=== PATIENT | female | born 2000 | race Caucasian/White ===

== ENCOUNTER 2024-09-27 01:20 | Day surgery (SDC) | payer BC, SELFPAY ==
--- NOTE | 2024-09-26 12:34 | P.HP_ITS ---
H&P: HPI History of Present Illness Date/Time: 09/26/24 12:34 Chief Complaint: 1st trimester missed A/B Narrative: 24-year-old 1 para 0 in the 1st trimester with a missed A/B for suction dilatation and curettage ultrasound reveals no growth no heart tones. Risks and benefits of the procedure reviewed Review of Systems Review of Systems: All systems reviewed & are unremarkable except as noted in HPI and below Exam Const: General: cooperative, healthy appearing and comfortable Nutritional Appearance: average body habitus Orientation/consciousness: oriented to perso n, oriented to place and oriented to time HENMT: Head: normal to inspection Resp: Effort & Inspection: normal respiratory effort Cardio: Rate: regular rate Rhythm: regular rhythm Heart sounds: S1 normal heart sound present and S2 normal heart sound present GI: Inspection: normal to inspection : External Female Exam: normal external appearance Speculum Exam - Vagina: normal appearance of the vagina Speculum Exam - Cervix: normal appearance of the cervix Bimanual exam- vagina & uterus: enlarged Bimanual Exam- Adnexa, other: normal adnexae Assessment and Plan Assessment and plan (1) Missed : Code(s): O02.1 - Missed Status: Acute Plan Proceed with suction dilatation and curettage
[2024-09-26 12:40] VITALS: BMI 25.6
--- NOTE | 2024-09-26 12:59 | PC.NURSE ---
Report to the Outpatient Waiting Room, entrance under the green pavilion located off [facility], at time 0600 on date 09/27/24. Planned Procedure Time: 0730.? Time changes happen often and if your time is changed the preop area will call you the afternoon before. - You and your visitor will be asked to self-screen and do not enter if you have any COVID symptoms. Please call surgeon if you need to reschedule. - A mask is optional within the hospital at this time. Patients may have clear liquids (water, carbonated beverages, clear teas, apple juice) until 3 hours prior to surgery with a maximum of 20 ounces. - No food from midnight until time of surgery and no smoking, or chewing tobacco (or any form of nicotine). No chewing gum, candy or mints. Take only the following medications with a SIP of water on the morning of surgery: Zofran or Tylenol as needed DO NOT STOP ANY OF YOUR OTHER PRESCRIPTION MEDICATIONS PRIOR TO SURGERY EXCEPT THE FOLLOWING Hold all vitamins and supplements for 3 days per anesthesiologist. Medications to discontinue per physician N/A Please no make-up, nail panamanian, hairspray, perfume, deodorant, or body powder the day of surgery.? No jewelry (including any body piercings) or valuables the day of surgery, leave them at home.? Please take a shower or bath the night before, or the morning of, surgery with an antibacterial soap.? Wear comfortable, loose fitting clothing.? - Jewelry must be removed prior to entering the operating room.? Rings and piercings that are not removed may be cut off. - The hospital will not accept responsibility for valuables.? - Please leave all valuables, including medications, at home the day of surgery. If you are going home after surgery, a licensed sprinkler truck driver must drive you home.? - NO public transportation without another adult if you receive anesthesia. - We recommend that an adult stay with you for 24 hours following discharge. - We also recommend that you do not drive, make important decision, drink alcoholic beverages, or take any drugs that were not prescribed by your health care provider for at least 24 hours after your discharge time. Follow any additional instructions given to you from your surgeon. Telephone instructions given to patient and asked if any additional questions and then verbalized understanding. Patient advised to call surgeon office or pre surgery nurse liaison [phone] if any additional questions.
--- OUTSIDE RECORDS SUMMARY | 2024-09-27 01:28 | XMS_ITS | Encounter Summary ---
Author Organization [facility] Address [address] [place] [address] Care Team Providers Care Wheelabrator Operator Name Role Phone Jeannie Mccord ROUNDHOUSE FIRER/FIREMAN Primary Care Provider [phone] Encounter Details Date Type Department Care Team (Latest Contact Info) Description 02/01/2024 e-Zassihart Message Enc [facility] - [place] [address] [place], [place] [id number] Jeannie Mccord, ROUNDHOUSE FIRER/FIREMAN [address] [place], [place] [id number] X-Rays for Rheumatology Social History Tobacco Use Types Packs/Day Years Used Date Smoking Tobacco: Never Smokeless Tobacco: Never Alcohol Use Standard Drinks/Week Comments Not Currently 0 (1 standard drink = 0.6 oz pur e alcohol) PHQ-2 Answer Date Recorded Patient Health Questionnaire-2 Score 0 12/24/2023 Comments Unknown Sex and Gender Information Value Date Recorded Sex Assigned at Female 08/25/2024 3:04 PM INSTRUMENT SPECIALIST Legal Sex Female 10:38 AM CDT Gender Identity Female 08/25/2024 3:30 PM INSTRUMENT SPECIALIST Sexual Orientation Not on file documented as of this encounter Plan of Treatment Upcoming Encounters Date Type Department Care Team (Late st Contact Info) Description 11/02/2024 10:20 AM CDT Office Visit [facility] - [facility] [address] [facility], [address] [place] [address] Ney Garrett MD 3 [place] [address] documented as of this encounter Visit Diagnoses Not on filedocumented in this encounter Additional Health Concerns Assessment Noted Time PHQ-9 Depression Total Score: 9 12/24/19 3:15 PM CDT documented as of this encounter Care Teams Wheelabrator Operator Relationship Specialty Start Date End Date Jeannie Mccord, SINA [address] [facility] [address] [place] [address] PCP - General NURSE PRACTITIONER 12/24/23 documented as of this encounter
--- OUTSIDE RECORDS SUMMARY | 2024-09-27 01:28 | XMS_ITS ---
Author Organization [facility] Address [address] [place], [place] [address] Care Team Providers Care Chiropractic Neurologist Name Role Phone Ruby Brown Primary Care Provider Jose Matos [phone] REASON FOR VISIT appt Encounters Encounter Location Date Provider [facility] [address] [place], [place] [id number] 09/15/2023 Jose King Plan Of Treatment No Information Progress Notes * Celestina RAMACHANDRANDOB: [birth year] (23 yo F)Acc No.[id number]:09/15/2023 Patient: Celestina CASTELLANO :2000 A ge:23 Y S ex:Female Address:[address], [place], [address] * true * Date: Generated for Printi ng/Faloreng/eTransmitting on: 0 09/27/2024 02:28 AM EDT
--- OUTSIDE RECORDS SUMMARY | 2024-09-27 01:28 | XMS_ITS | Patient Health Record ---
Author Organization [facility] Address [address] [facility] [place] [place] [address] Care Team Providers Care Button Sewer Hand Name Role Phone Ruby Brown Primary Care Provider Jose Matos Unavailable [phone] Allergies Allergen (clinical drug ingredient) Drug/Non Drug Allergy documented on EMR Reaction Allergy Type Onset Date Status sumatriptan Sumatriptan Unknown Drug Allergy Act dinorah Reason For Referral No Information Medications Medication SIG (Take, Route, Fr equency, Duration) Notes Start Date End Date Status Colchicine 0.6 MG 1 tablet Orally ONCE A DAY for 30 days 08/19/2023 Active Naproxen 500 MG 1 tablet with food o r milk as needed Orally every 12 hrs Activ e Tylenol 325 MG 2 tablet as needed O rally every 4 hrs Active Problems Problem Type SNOMED Code ICD Code Onset Dates Problem Status W/U Status Risk Notes Problem Attention deficit hyperactivity disorder (633782586) Attention-deficit hyperactivity disorder, unspecified type (F90.9) Active confirmed Problem Pericarditis in diseases classified elsewhere (I32) Active confirmed Problem Cardiac arrhythmia (593501126) Other specified cardiac arrhythmias (I49.8) Active confirmed Problem Palpitations (59099334) Palpitations (R00.2) Active confirmed Problem Shortness of breath (025149057) Shortness of breath (R06.02) Active confirmed Problem Precordial pain (97936688) Precordial pain (R07.2) Active confirmed Problem Syncope and collapse (573064839) Syncope and collapse (R55) Active confirmed Problem Postural orthostatic tachycardia syndrome (disorder) (034361682) Postural orthostatic tachycardia syndrome [POTS] (G90.A) Active confirmed Plan Of Treatment Pending Test Test Name Order Date Echocardiogram 08/15/2021 EKG 08/15/2021 EKG 11/10/2022 EKG 05/04/2023 EKG 07/28/2023 EKG 08/19/2023 ETT Stress 12/16/[address] angiogram 07/28/[address] angiogram 08/19/2023 ZioPatch 08/15/2021 Zio 3-7 days - extended continuous ambul atory professor of literature 07/28/2023 Medical (General) History Medical History History ICD Code History of POTS Diagnosed by Tilt Table Test in [place]. CARDIAC HISTORY AND TESTIN-D Echo 09/2021 LVEF 60-65%, G1DD. Zio 7 day 09/2021 HR 47-157, avg 76 bpm. Sinus rhythm with rare PVC/PAC. POTS diagnosis via tilt table test in [place]. Surgical History Surgery Date(Month/Year) Hospitalization History Reason Date(Month/Year) chest pain (TIO) 07/2023 chest pain, dizziness, sob 05/2021
--- OUTSIDE RECORDS SUMMARY | 2024-09-27 01:28 | XMS_ITS | Encounter Summary ---
Author Organization [facility] Address [address] [place] [address] Care Team Providers Care Exchange Underwriting Consultant Name Role Phone Jeannie Mccord MACHINE LOADER Primary Care Provider [phone] Encounter Details Date Type Department Care Team (Late st Contact Info) Description 07/07/2024 [employer]hart Message Enc [facility] Multispecialty Care - [place] [address] [place], [place] [address] Jeannie Mccord, MACHINE LOADER [address] [place] [address] Sore throat Social History Tobacco Use Types Packs/Day Years Used Date Smoking Tobacco: Never Smokeless Tobacco: Never Alcohol Use Standard Drinks/Week Comments Not Currently 0 (1 standard drink = 0.6 oz pur e alcohol) PHQ-2 Answer Date Recorded Patient Health Questionnaire-2 Score 0 12/24/2023 Comments No Sex and Gender Information Value Date Recorded Sex Assigned at Female 08/25/2024 3:04 PM CARD ASSEMBLER Legal Sex Female 10:38 AM CDT Gender Identity Female 08/25/2024 3:30 PM CARD ASSEMBLER Sexual Orientation Not on file documented as of this encounter Plan of Treatment Upcoming Encounters Date Type Department Care Team (Late st Contact Info) Description 11/02/2024 10:20 AM CDT Office Visit [facility] - [facility] [address] [facility], [address] [place] [address] Ney Garrett MD 3 [place] [address] documented as of this encounter Visit Diagnoses Not on filedocumented in this encounter Additional Health Concerns Assessment Noted Time PHQ-9 Depression Total Score: 9 12/24/19 3:15 PM CDT documented as of this encounter Care Teams Exchange Underwriting Consultant Relationship Specialty Start Date End Date Jeannie Mccord, MACHINE LOADER [address] [facility] [address] [place] [address] PCP - General NURSE PRACTITIONER 12/24/23 documented as of this encounter
--- OUTSIDE RECORDS SUMMARY | 2024-09-27 01:28 | XMS_ITS | Encounter Summary ---
Author Organization [facility] Address [address] [place] [address] Care Team Providers Care Slubber Hand Name Role Phone Jeannie Mccord WATCH REPAIR TECHNICIAN Primary Care Provider [phone] Encounter Details Date Type Department Care Team (Late st Contact Info) Description 06/29/2024 [employer] Message Enc [facility] Multispecialty Care - [place] [address] [place], [place] [id number] Jeannie Mccord, WATCH REPAIR TECHNICIAN [address] [place] [address] Sore throat Social History Tobacco Use Types Packs/Day Years Used Date Smoking Tobacco: Never Smokeless Tobacco: Never Alcohol Use Standard Drinks/Week Comments Not Currently 0 (1 standard drink = 0.6 oz pur e alcohol) PHQ-2 Answer Date Recorded Patient Health Questionnaire-2 Score 0 12/24/2023 Comments No Sex and Gender Information Value Date Recorded Sex Assigned at Female 08/25/2024 3:04 PM KETTLE LOADER Legal Sex Female 10:38 AM CDT Gender Identity Female 08/25/2024 3:30 PM KETTLE LOADER Sexual Orientation Not on file documented as of this encounter Plan of Treatment Upcoming Encounters Date Type Department Care Team (Late st Contact Info) Description 11/02/2024 10:20 AM CDT Office Visit [facility] - [facility] [address] [facility], [address] [place] [address] Ney Garrett MD 3 [place] [address] documented as of this encounter Visit Diagnoses Not on filedocumented in this encounter Additional Health Concerns Assessment Noted Time PHQ-9 Depression Total Score: 9 12/24/19 3:15 PM CDT documented as of this encounter Care Teams Slubber Hand Relationship Specialty Start Date End Date Jeannie Mccord, WATCH REPAIR TECHNICIAN [address] [facility] [address] [place] [address] PCP - General NURSE PRACTITIONER 12/24/23 documented as of this encounter
--- OUTSIDE RECORDS SUMMARY | 2024-09-27 01:28 | XMS_ITS | Encounter Summary ---
Author Organization [facility] Address [address] [place] [address] Care Team Providers Care Imaging Scheduler Name Role Phone Jeannie Mccord MATERIAL LISTER Primary Care Provider [phone] Encounter Details Date Type Department Care Team (Late Contact Info) Description 06/23/2024 [employer] Message Enc [facility] Multispecialty Care - [place] [address] [place], [place] [address] Jeannie Mccord NP [address] [place] [address] Herpes Medication Social History Tobacco Use Types Packs/Day Years Used Date Smoking Tobacco: Never Smokeless Tobacco: Never Alcohol Use Standard Drinks/Week Comments Not Currently 0 (1 standard drink = 0.6 oz pur e alcohol) PHQ-2 Answer Date Recorded Patient Health Questionnaire-2 Score 0 12/24/2023 Comments No Sex and Gender Information Value Date Recorded Sex Assigned at Female 08/25/2024 3:04 PM PSYCHIATRIC NURSE Legal Sex Female 10:38 AM CDT Gender Identity Female 08/25/2024 3:30 PM PSYCHIATRIC NURSE Sexual Orientation Not on file documented as of this encounter Plan of Treatment Upcoming Encounters Date Type Department Care Team (Late Contact Info) Description 11/02/2024 10:20 AM CDT Office Visit [facility]ty Care - [facility] [address] [facility], [address] [place] [address] Ney Garrett MD 3 [place] [address] documented as of this encounter Visit Diagnoses Not on filedocumented in this encounter Additional Health Concerns Assessment Noted Time PHQ-9 Depression Total Score: 9 12/24/19 24 3:15 PM CDT documented as of this encounter Care Teams Imaging Scheduler Relationship Specialty Start Date End Date Jeannie Mccord, MATERIAL LISTER [address] [facility] [address] [place] [address] PCP - General NURSE PRACTITIONER 12/24/23 documented as of this encounter
--- OUTSIDE RECORDS SUMMARY | 2024-09-27 01:28 | XMS_ITS | Encounter Summary ---
Author Organization [facility] Address [address] [place] [address] Care Team Providers Care Asbestos Wire Finisher Name Role Phone Jeannie Mccord ROUGHER MACHINE OPERATOR Primary Care Provider [phone] Encounter Details Date Type Department Care Team (Late Contact Info) Description 12/24/2023 MyChart Message Enc [facility] Multispecialty Care - [place] [address] [place], [place] [address] Jeannie Mccord, ROUGHER MACHINE OPERATOR [address] [place] [address] symptoms Social History Tobacco Use Types Packs/Day Years Used Date Smoking Tobacco: Never Smokeless Tobacco: Never Alcohol Use Standard Drinks/Week Comments Not Currently 0 (1 standard drink = 0.6 oz pur e alcohol) PHQ-2 Answer Date Recorded Patient Health Questionnaire-2 Score 0 12/24/2023 Comments Unknown Sex and Gender Information Value Date Recorded Sex Assigned at Female 08/25/2024 3:04 PM FOREST FIRE EQUIPMENT OPERATOR Legal Sex Female 10:38 AM CDT Gender Identity Female 08/25/2024 3:30 PM FOREST FIRE EQUIPMENT OPERATOR Sexual Orientation Not on file documented as of this encounter Plan of Treatment Upcoming Encounters Date Type Department Care Team (Late Contact Info) Description 11/02/2024 10:20 AM CDT Office Visit [facility] Mult[facility]pecialty Care - [facility] [address] [facility], [address] [place] [address] Ney Garrett MD 3 [place] [address] documented as of this encounter Visit Diagnoses Not on filedocumented in this encounter Additional Health Concerns Assessment Noted Time PHQ-9 Depression Total Score: 9 12/24/19 24 3:15 PM CDT documented as of this encounter Care Teams Asbestos Wire Finisher Relationship Specialty Start Date End Date Jeannie Mccord, ROUGHER MACHINE OPERATOR [address] [facility] [address] [place] [address] PCP - General NURSE PRACTITIONER 12/24/23 documented as of this encounter
--- OUTSIDE RECORDS SUMMARY | 2024-09-27 01:28 | XMS_ITS | Encounter Summary ---
Author Organization [facility] Address [address] [place] [address] Care Team Providers Care Pecan Sheller Name Role Phone Jeannie Mccord NP Primary Care Provider [phone] Encounter Details Date Type Department Care Team (Late st Contact Info) Description 03/06/2024 Yodio[employer] Message Enc [facility] Mult[facility]pecialty Care - [place] [address] [place], [place] [phone] Jeannie Mccord, ELECTRICAL PROJECT MANAGER [address] [place] [address] New Medication Social History Tobacco Use Types Packs/Day Years Used Date Smoking Tobacco: Never Smokeless Tobacco: Never Alcohol Use Standard Drinks/Week Comments Not Currently 0 (1 standard drink = 0.6 oz pur e alcohol) PHQ-2 Answer Date Recorded Patient Health Questionnaire-2 Score 0 12/24/2023 Comments No Sex and Gender Information Value Date Recorded Sex Assigned at Female 08/25/2024 3:04 PM RESIDENTIAL LAWN SPECIALIST Legal Sex Female 10:38 AM CDT Gender Identity Female 08/25/2024 3:30 PM RESIDENTIAL LAWN SPECIALIST Sexual Orientation Not on file documented as of this encounter Progress Notes * Ivy Lowry MA - 03/06/2024 2:06 PM CDTFrom: Celestina Alvarez To: Jeannie Mccord Sent: 03/06/2024 1:24 PM CDT Subject: New Medication Good afternoon, I didn???t tolerate the ropinirole very well. it raised my heart rate to about 120-130 just restingand made me feel like I couldn???t breathe too well. I don???t think I want to try to take it again. Is there an alternative I can try? Thanks, documented in this encounter Plan of Treatment Upcoming Encounters Date Type Department Care Team (Late st Contact Info) Description 11/02/2024 10:20 AM CDT Office Visit [facility] - [facility] [address] [facility], [address] [place] [address] Ney Garrett MD 3 [place] [address] documented as of this encounter Visit Diagnoses Not on filedocumented in this encounter Additional Health Concerns Assessment Noted Time PHQ-9 Depression Total Score: 9 12/24/19 24 3:15 PM CDT documented as of this encounter Care Teams Pecan Sheller Relationship Specialty Start Date End Date Jeannie Mccord, SINA [address] [place] [address] PCP - General NURSE PRACTITIONER 12/24/23 documented as of this encounter
--- OUTSIDE RECORDS SUMMARY | 2024-09-27 01:28 | XMS_ITS ---
Author Name Interface, [id number] lity Address [place] [address] Organization [facility] Address [place] [address] Care Team Providers Care Management Assistant Name Role Phone Renetta French Unavailable Unavailable Allergies and Adverse Reactions Medication/Group Name Reaction Severity Date Caplyta 11/10/2023 sumatriptan 11/10/2023 Plan Date Type Value 11/12/2023 APPOINTMENT 1865-pos op f/u 11/10/2023 APPOINTMENT 1865-pos op f/u 11/10/2023 [facility] Chest x-ray, PA and lateral Reason for Visit [facility]5-pos op f/u Encounters Date Name 11/10/2023 Pulmonary sequestrat ion Medications Date Name Route Dose Frequency Instructions Start Date End Date Status Bupropion (XL) Oral 24 hr Tab PO 1.0 tablet extended release 24 hr Daily active Cholecalciferol Oral PO active Loratadine Oral Disintegrating Tablet PO As needed active Gabapentin Oral PO 1.0 capsule QID 4 times a day as needed active Ondansetron Oral PO 1.0 tablet As needed for nausea active 2023 ondansetron 4 MG Oral Tablet orally 1.0 tablet every 4 hours 024 active 2023 acetaminophen 325 MG / hydrocodone bitartrate 10 MG Oral Tablet orally 1.0 tab every 8 hours 024 active Problems Diagnosis Status Date of Diagnosi s Pulmonary sequestration Active Vital Signs Date Type Value 11/10/2023 Body Temperature 97.30 11/10/2023 Heart Beat 82.00 11/10/2023 Respiratory Rate 18.00 11/10/2023 Weight 134.00 11/10/2023 Intravascular Systolic 107 11/10/2023 Intravascular Diastolic 70 11/10/2023 Pain Scale 5.00 11/10/2023 Oxygen Saturation 100.00 Notes Section * [facility] - Thoracic Surgery Follow Up [facility] Al[facility] Gayton [address] [place] [address]. [place] [address] P: [phone] F: [phone] THORACIC SURGERY FOLLOW UP NOTE PATIENT:??BRANDY RAMACHANDRAN :??2000 Date of Service:??11/10/[address] 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 ??CTA of the chest was done and she was diagnosed with pericarditis. ??She was treated with colchicine, NSAIDs, and steroids without improvement in her symptoms. 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 ??She was referred to Dr. Parker. ??PFTs showed FEV1 93% and DLCO 98%. ??She was referred to me for surgical evaluation for resection of the sequestrated lung segment. ??Of note, the patient denied any prior pneumonias. ??She did have COVID in 2020 and was diagnosed with long COVID POTS, but her symptoms have been improving. ??She previously had asthma as a child, but does not use any inhalers currently. ??She reported an occasional cough in the morning with scant bloody mucus but no hemoptysis. ?? I reviewed her CT scan with radiology at [facility]. ??There is an abnormal area in the left lower lobe with unusual architecture which abuts the pericardium; however, unlike typical pulmonary sequestration, there does not appear to be any aberrant pulmonary arterial supply from the aorta to this region of the lung. ??Given that this segment of lung is the only apparent abnormality on her CT scans of her chest, I discussed with the patient that it would be reasonable to perform a wedge resection of this area. ??I was very clear however that this may not be the cause of her symptoms and surgery may not improve the shortness of breath and chest pain she has been having. ??Given the possibility for complicated resection if any anomalous arterial supply were encountered or the possibility of requiring left lower lobectomy, I recommended proceeding with a robotic procedure. ??The patient understood, agreed, and wished to proceed with surgery.?? On 10/26/2023, she underwent flexible bronchoscopy and robotic left lower lobe wedge resection of the anomalous portion of the left lower lobe. She was extubated post operatively and was transferred to the floor after a brief recovery in PACU. Her chest tube was removed on POD 1. Adjustments were made to her pain regimen during her stay until??her pain was controlled with PO pain medications alone. She was discharged home on POD 2. Surgical pathology was consistent with emphysematous and atelectatic changes around the bronchi with chronic inflammation. Imaging CTA Chest 08/02/2023 IMPRESSION: 1. No evidence of central pulmonary embolic disease. No aneurysm or dissection of the thoracic aorta 2. No focal infiltrate or pleural effusion. No evidence of pneumothorax CTA Coronaries 09/14/2023 FINDINGS: Incidental note of a 5 cm x 1.6 cm medial left lower lobe pulmonary sequestration. IMPRESSION: Normal CT coronary artery angiogram. No finding of coronary artery disease. Follow up chest x-ray 11/10/2023 Formal read pending. Lungs appear clear and well-expanded, no effusion, no pneumothorax. Pathology Left lower lobe wedge resection 10/26/2023 FINAL DIAGNOSIS ? Lung, left lower lobe, wedge resection: Lung parenchyma with some emphysematous changes in ?the periphery and atelectatic changes around the bronchi with mild chronic inflammation. ? Dictated by: Martin Turcios Interval History Ms. Ramachandran returns today for post operative follow up. Overall, she is recovering well. She is weaning her pain medication and is only taking the Mccomb ~2 times daily. She is still taking the gabapentin and robaxin TID. She reports some occasional SOB/DARLING with activity, but not as severe as before surgery. Her pain also seems to be improved. Her just took a job in [place] and they plan to move in 2 weeks.?? Medical History Asthma as a child COVID in 2020 Long COVID with POTS Surgical History ? Surgical History* Left leg muscle lengthening procedure Robotic left lower lobe wedge resection 10/26/2023 Gynecologic History Breast History Family History * Father: Alive and Well * Mother: Alive and Well Paternal GF with lung cancer - smoker Smoking Status Smoking Tobacco : Never smoker; Smokeless Tobacco : Never used smokeless tobacco; Vaping : Current vape user Social History Vapes daily since 17yo, working to quit. Rare EtOH use Lives with her and her parents - recently moved to [place] from [place] and [place] before that She is a student at [employer] working to obtain her Bachelor's degree in Psychology with plans to apply for PhD program??in Psychology afterward.?? Medications * Loratadine Oral Disintegrating Tablet 10 mg tablet,disintegrating PO As needed * Wellbutrin XL (Bupropion (XL) Oral 24 hr Tab) 150 mg tablet extended release 24 hr 1 tablet extended release 24 hr PO Daily * Gabapentin Oral 300 mg capsule 1 capsule PO QID 4 times a day as needed * Vitamin D3 (Cholecalciferol Oral) PO * Hydrocodone-Acetaminophen Oral 10 mg-325 mg 10-325 mg tablet 1 tab orally every 8 hours as needed for pain. * Ondansetron Oral 4 mg tablet 1 tablet PO As needed for nausea Medications reviewed and reconciled with patient.?? Allergies * Caplyta * sumatriptan Review of Systems Constitutional: Denies fatigue, weakness, chills, fever Skin: Denies bruising, rash Eyes: Denies vision changes ENT: Denies voice change, hearing loss, mouth pain, sore throat, epistaxis Respiratory: Denies cough, SOB, hemoptysis CV: Denies chest pain, palpitations GI: Denies abdominal pain, nausea, vomiting, diarrhea Musculoskeletal: Denies joint pain, swelling, myalgias Heme: Denies bleeding, bruising Endocrine: Denies heat/cold intolerance Neuro: Denies LOC, confusion, seizure Psych: Denies change in mental status, suicidal/homicidal ideation Problems * Pulmonary sequestration ( ICD-10:Q33.2 ;Sequestration of lung ) Vital Signs/Performance Status Height: None Today; Weight: 134 lb; Blood pressure: 107/70, Pulse: 82, Temperature: 97.3 F, Respirations: 18, Pain Scale: 5 Karnofsky: Not Assessed Physical Exam General Appearance: alert, awake, oriented, no acute distress HEENT: Pupils equal, extraocular movements intact, moist mucosal membranes, sclera clear Neck: Normal range of motion, supple, no JVD, no LAD CV: Regular rate, hemodynamically stable Respiratory: normal work of breathing, no wheezes Chest: incisions healing well, no signs of infection, dehiscence, or seroma. Chest tube site sutureremoved. 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 Surgical pathology??consistent with emphysematous and atelectatic changes around the bronchi with chronic inflammation. Plan 1. She is cleared for driving, swimming, baths. She should avoid lifting more than 10 pounds for another 4 weeks (total of 6 weeks after surgery).?? OK to use ointments/lotions/scar creams as needed. 2. She may follow up with me as needed. 3. She should follow up with Dr. Parker as scheduled. 4. I will send a refill for her pain medication today. Procedure Flexible bronchoscopy and robotic??wedge resection of the anomalous portion of the left lower lobe 10/26/2023 , Renetta French MD [facility] Send copy of note to: Dr. Jeff Parker . Electronically signed by Renetta French MD 11/10/2023 11:48 CDT
--- OUTSIDE RECORDS SUMMARY | 2024-09-27 01:28 | XMS_ITS | CCD ---
Author Name Interface, [id number] lity Address [place] [address] Organization [facility] Address [place] [address] Care Team Providers Care Cardroom Drawing Runner Name Role Phone Renetta French Unavailable Unavailable Allergies and Adverse Reactions Medication/Group Name Reaction Severity Date Caplyta 11/10/2023 sumatriptan 11/10/2023 Care Plan Date Type Value 11/12/2023 APPOINTMENT 1865-pos op f/u 11/10/2023 APPOINTMENT 1865-pos op f/u 10/13/2023 APPOINTMENT 1865 CONSULT 11/10/2023 [facility] Chest x-ray, PA and lateral Reason for Visit 1865-pos op f/u Encounters Date Name 11/10/2023 Pulmonary sequestrat ion Diagnostic Results Date Type Test Units Lower Limit Upper Limit Result Flag Comments Status Ordered By Specimen Source Lab Address 10/04 Pulmo nary funct ion test See attache proctor Medications Date Name Route Dose Frequency Instructions Start Date End Date Status Gabapentin Oral PO 1.0 capsule QID 4 times a day as needed active Bupropion (XL) Oral 24 hr Tab PO 1.0 tablet extended release 24 hr Daily active Ondansetron Oral PO 1.0 tablet As needed for nausea active Cholecalciferol Oral PO active Loratadine Oral Disintegrating Tablet PO As needed active 2023 ondansetron 4 MG Oral Tablet orally 1.0 tablet every 4 hours active 2023 acetaminophen 325 MG / hydrocodone bitartrate 10 MG Oral Tablet orally 1.0 tab every 8 hours active Problems Diagnosis Status Date of Diagnosi s Pulmonary sequestration Active Procedures Date Category Name Instructions Status 11/10/2023 Physician Order Diagnostic radio graphy of chest, combined PA and lateral post op surgical chest xray to be completed same day as post op at [facility] on 11/10/23 prior to scheduled appt with Dr. French. Ordered Social History Date Name Value 10/13/2023 Smoking Status Never smoker Sex Female Vital Signs Date Type Value 11/10/2023 Weight 134.00 11/10/2023 Intravascular Systolic 107 11/10/2023 Intravascular Diastolic 70 11/10/2023 Respiratory Rate 18.00 11/10/2023 Heart Beat 82.00 11/10/2023 Body Temperature 97.30 11/10/2023 Pain Scale 5.00 11/10/2023 Oxygen Saturation 100.00
--- OUTSIDE RECORDS SUMMARY | 2024-09-27 01:28 | XMS_ITS ---
Author Organization [facility] Address [address] [place], [place] [id number] Care Team Providers Care Strip Feeder Name Role Phone Ruby Brown Primary Care Provider Jose Matos Unavailable [phone] Allergies Allergen (clinical drug ingredient) Drug/Non Drug Allergy documented on EMR Reaction Allergy Type Onset Date Status sumatriptan Sumatriptan Unknown Drug Allergy Act dinorah REASON FOR VISIT ZIO F/U PER DR KING Medications Medication SIG (Take, Route, Frequency, Duration) Notes Start Date End Date Status methylPREDNISolone 4 MG as directed Oral ly use as directed for 6 days 08/19/2023 Not-Takin g Colchicine 0.6 MG 1 tablet Orally ONCE A DAY for 30 days 08/19/2023 Active Tylenol 325 MG 2 tablet as needed Orally every 4 hrs Active Naproxen 500 MG 1 tablet with food o r milk as needed Orally every 12 hrs Active Vital Signs Height 62 in 09/16/2023 Weight 133 lbs 09/16/2023 BMI 24.32 kg/m2 09/16/2023 Heart Rate 97 /min 09/16/2023 Blood pressure systolic 118 mm Hg 09/16/19 24 Blood pressure diastolic 70 mm Hg 024 o2-98 Encounters Encounter Location Date Provider Diagnosis [facility] [address] [place], [place] [id number] 09/16/2023 Jose King Postural orthostatic tachycardia syndrome [POTS] G90.A ; Palpitations R00.2 and Pericarditis in diseases classified elsewhere I32 Assessments Encounter Date Diagnosis (ICD Code) Assessment Notes Treatment Notes Treatment Clinical Notes Section Notes 09/16/2023 Postural orthostatic tachycardia syndrome [POTS] (ICD-10 - G90.A) 09/16/2023 Palpitations (ICD-10 - R00.2) 09/16/2023 Pericarditis in diseases classified elsewhere (ICD-10 - I32) Plan Of Treatment Medication Medication Name Sig Start Date Stop Date Notes Colchicine 0.6 MG 1 tablet Orally ONCE A DAY for 30 days 0 08/19/2023 Next Appt Details Follow Up: 4 Months, Reason: Progress Notes * Celestina RAMACHANDRANDOB: [birth year] (23 yo F)Acc No.[id number]:09/16/2023 Progress Notes Patient: Celestina CASTELLANO Provider: Agnieszka King MD, [facility] :2000 A ge:23 Y S ex:Female Date:09/16/2023 Address:[facility] [address] [id number] Pcp:Ruby Brown Subjective: * Chief Complaints: * Z IO F/U PER DR KING * HPI: I nterim History, Cardiology: Ms Ramachandran returns for routine CV follow up. She went to [facility] ED on July 30, 2023 due to unremitting chest pain inspite of NSAID. workup included a chest CT scan. She was told to have pericarditis. He was told there may be some concomitant lung inflammation as well. She was placed on naproxen 500 mg by mouth twice a day for 30 days. This attenuated the chste discomfort although she continues to have Chest pain both at rest and with exertion. chest discomfort is worse when she lays on her back appears to be somewhat improved when she leans forward. She told me she must have been bedridden for the past 2 weeks due to significant chest discomfort. Coronary CTA had been ordered to exclude anomalous coronary arteries but this was done due to patient find a fragment. She however has had a miscarriage and I have told him to proceed with plans for coronary CTA. Dynamic ST-T wave changes at her last visit was also suggestive of pericarditis. Since she has had minimal relief with naproxen I would add colchicine to her treatment regimen. She stopped propranolol when she found out she was . She however is not having significantly increased palpitations. I have told him to have to resume propanolol if she starts to get frequent palpitations again. Cardiac Hx: ETT 12/2021: No ischemia; Good exercise capacity 2-D Echo 09/2021 LVEF 60-65%, G1DD. Zio 7 day 09/2021 HR 4-157, avg 76 bpm. Sinus rhythm with rare PVC/PAC. POTS diagnosis via tilt table test in [place].. * ROS: R espiratory: no C ough. n o P helgm. n o W heezing. C ardiovascular: no C hest pain. n o C laudication. n o D izziness. n o D yspnea on exertion. n o F ainting. H igh blood pressure y es.?no K nown coronary artery disease. n o M urmurs. n o P alpitations. n o Shortness of breath. n o S welling of ankles. n o V aricose veins. ? C onstitutional: no F atigue. n o F ever. n o H eadache.?no L oss of appetite. D ermatologic: no D ry or sensitive skin. n o H sheryl. n o R keven. E ndocrine: no C old intolerance. n o H air loss. n o H eat intolerance. n o W eight loss. G astrointestinal: no C onstipation. n o D iarrhea. n o D ysphagia. n o H eartburn. n o H emorrhoids. n o N ausea. n o V omiting.? H ematologic: no B leeding. n o E asy bruising. n o S wollen glands. M usculoskeletal: no J oint pain. n o J oint stiffness. n o J oint swelling. n o M uscle aches. N eurologic: no I nsomnia. n o M susan loss. n o N umbness/Tingling. n o S eizures/Odd movements. n o W eakness. P sychology: no A nxiety. n o D epression. n o S leep disturbances. U rologic: no B lood in urine. n o D ysuria. n o U rinary incontinence. * Medical History: * Surgical History: N o Surgical History documented. * Hospitalization/Major Diagno stic Procedure: c hest pain, dizziness, sob 1chest pain (TIO) 07/2023 * Family History: F ather: alive, family history unknown . M other: alive, diagnosed with Hypertension, Heart Disease. P aternal Grand Father: alive, family history unknown . P aternal Grand Mother: , diagnosed with Mental Illness. M aternal Grand Father: alive. M aternal Grand Mother: alive. P aternal Uncle: , diagnosed with Hypertension, Heart Disease, Hyperlipidemia, Cancer. 1 brother(s) , 1 sister(s) . . brother has high pulse. * Social History: A lcohol: socially, Type: , Frequency: ,Years: , Determination:. Caffeine: yes, frequency:. Smoking: no P PD: , years: ,determination:. QUIT VAPING 3 WEEKS AGO. * Medications: T akingColchicine 0.6 MG Tablet 1 tablet Orally Tylenol 325 MG Tablet 2 tablet as needed Orally every 4 hrs Naproxen 500 MG Tablet 1 tablet with food or milk as needed Orally every 12 hrs Taking Colchicine 0.6 MG Tablet 1 tablet Orally Taking Tylenol 325 MG Tablet 2 tablet as needed Orally every 4 hrs Taking Naproxen 500 MG Tablet 1 tablet with food or milk as needed Orally every 12 hrs Not- TakingmethylPREDNISolone 4 MG Tablet Therapy Pack as directed Orally use as directed Medication List reviewed and reconciled with the patientNot-Taking methylPREDNISolone 4 MG Tablet Therapy Pack as directed Orally use as directed Medication List reviewed and reconciled with the patient * Allergies: S umatriptanno[Allergies Verified] Objective: * Vitals: H eight: 62, Weight: 133, body mass index (BMI): 24.32, heart rate (HR): 97, respiratory rate (RR): 16, blood pressure (BP): 118/70. o2-98. * Examination: C ardiovascular Examination: General Appearance: a lert and oriented. H EENT: n ormal. C arotid Upstroke: n o bruit, normal. J ugular Venous Distention (JVD): n one, normal. C hest: g ood aeration, c ostochondral tenderness. L ungs: c lear to auscultation bilaterally. C ardiovascular n ormal S1, S2, no S3, S4 appreciated, no murmur.?Abdomen: F ull, soft, no massses, bowel sounds are present. . E xtremities: n o leg edema. N eurologic: a lert and oriented x 3, no focal findings. P eripheral Pulses: r adial pulses intact. M ood: a ppropriate. Assessment: * Assessment: 1. P ostural orthostatic tachycardia syndrome [POTS] - G90.A (Primary) 2 . P alpitations - R00.2 3 . P ericarditis in diseases classified elsewhere - I32 Plan: * Treatment: * Procedure Codes: G 8420 BMI<30 AND >=22 CALC & [id number] TOBACCO [id number] BP SCR PRFRM RCMDD DEFIND SCR INTVL * Preventive Medicine: Counseling: D iet . E xercise . * Follow Up: 4 Months * Images: * Sign off status: Completed true * Provider: Agnieszka King MD, [facility] Date: 0 09/16/2023 Generated for Wm centeno/Tita/Ravenitting on: 0 09/27/2024 02:28 AM EDT History and Physical Notes * HPI (History of Present Illness) Category Sub-Category Detail Notes Category Not es Interim History, Cardiology Ms Ramachandran returns for routin e CV follow up. She went to [facility] ED on July 30, 2023 due to unremitting chest pain inspite of NSAID. workup included a chest CT scan. She was told to have pericarditis. He was told there may be some concomitant lung inflammation as well. She was placed on naproxen 500 mg by mouth twice a day for 30 days. This attenuated the chste discomfort although she continues to have Chest pain both at rest and with exertion. chest discomfort is worse when she lays on her back appears to be somewhat improved when she leans forward. She told me she must have been bedridden for the past 2 weeks due to significant chest discomfort. Coronary CTA had been ordered to exclude anomalous coronary arteries but this was done due to patient find a fragment. She however has had a miscarriage and I have told him to proceed with plans for coronary CTA. Dynamic ST-T wave changes at her last visit was also suggestive of pericarditis. Since she has had minimal relief with naproxen I would add colchicine to her treatment regimen. She stopped propranolol when she found out she was . She however is not having significantly increased palpitations. I have told him to have to resume propanolol if she starts to get frequent palpitations again. Cardiac Hx: ETT 12/2021: No ischemia; Good exercise capacity 2-D Echo 09/2021 LVEF 60-65%, G1DD. Zio 7 day 09/2021 HR 4-157, avg 76 bpm. Sinus rhythm with rare PVC/PAC. POTS diagnosis via tilt table test in [place]. Examination Category Sub-Category Detail Notes Category Not es Cardiovascular Examination General Appearance: alert and oriented HEENT: normal Carotid Upstroke: no bruit, normal Jugular Venous Distention (JVD): none, n ormal Cardiovascular normal S1, S2, no S3 , S4 appreciated, no murmur Lungs: clear to auscultatio n bilaterally Abdomen: Full, soft, no masss es, bowel sounds are present. Extremities: no leg edema Peripheral Pulses: radial pulses intact Neurologic: alert and oriented x 3, no focal findings Mood: appropriate Chest: good aeration, costo chondral tenderness
--- OUTSIDE RECORDS SUMMARY | 2024-09-27 01:28 | XMS_ITS | Encounter Summary ---
Author Organization [facility] Address [address] [place] [address] Care Team Providers Care Napkin Band Wrapper Name Role Phone Jeannie Mccord MANUSCRIPT EDITOR Primary Care Provider [phone] Encounter Details Date Type Department Care Team (Latest Contact Info) Description 01/09/2024 [email or web address] Message Enc [facility] [address] [place], [place] [id number] Jeannie Mccord, MANUSCRIPT EDITOR [address] [place] [address] Cardiology referral & current symptoms Social History Tobacco Use Types Packs/Day Years Used Date Smoking Tobacco: Never Smokeless Tobacco: Never Alcohol Use Standard Drinks/Week Comments Not Currently 0 (1 standard drink = 0.6 oz pur e alcohol) PHQ-2 Answer Date Recorded Patient Health Questionnaire-2 Score 0 12/24/2023 Comments Unknown Sex and Gender Information Value Date Recorded Sex Assigned at Female 08/25/2024 3:04 PM SENIOR MARKETING SPECIALIST Legal Sex Female 10:38 AM CDT Gender Identity Female 08/25/2024 3:30 PM SENIOR MARKETING SPECIALIST Sexual Orientation Not on file documented as of this encounter Plan of Treatment Upcoming Encounters Date Type Department Care Team (Late st Contact Info) Description 11/02/2024 10:20 AM CDT Office Visit [facility] [address], [address] [place] [address] Ney Garrett MD [address] [place] [address] documented as of this encounter Visit Diagnoses Not on filedocumented in this encounter Additional Health Concerns Assessment Noted Time PHQ-9 Depression Total Score: 9 12/24/19 3:15 PM CDT documented as of this encounter Care Teams Napkin Band Wrapper Relationship Specialty Start Date End Date Jeannie Mccord, SINA [address] [place] [address] PCP - General NURSE PRACTITIONER 12/24/23 documented as of this encounter
--- OUTSIDE RECORDS SUMMARY | 2024-09-27 01:28 | XMS_ITS ---
Author Organization [facility] Address [address] [place], [place] [address] Care Team Providers Care Integration Solution Architect Name Role Phone Ruby Brown Primary Care Provider Jose Matos [phone] REASON FOR VISIT [address] KING Medications Medication SIG (Take, Route, Fr equency, Duration) Notes Start Date End Date Status Colchicine 0.6 MG 1 tablet Orally ONCE A DAY for 30 days 08/19/2023 Active Naproxen 500 MG 1 tablet with food o r milk as needed Orally every 12 hrs Activ e Tylenol 325 MG 2 tablet as needed O rally every 4 hrs Active Encounters Encounter Location Date Provider Diagnosis [facility] [address] [place], [place] [id number] 10/21/2023 Jose King Plan Of Treatment No Information Progress Notes * Celestina RAMACHANDRANDOB: [birth year] (24 yo F)Acc No.[id number]:10/21/2023 Progress Notes Patient: Festus RAMIREZ Celestina Provider: Agnieszka King MD, [facility]2000 A ge:23 Y S ex:Female Date:10/21/2023 [address] [id number] Pcp:Ruby Brown Subjective: * Chief Complaints: * 1 . [address] KING. * Medical History: * Medications: T aking Tylenol 325 MG Tablet 2 tablet as needed Orally every 4 hrs , Taking Naproxen 500 MG Tablet 1 tablet with food or milk as needed Orally every 12 hrs , Taking Colchicine 0.6 MG Tablet 1 tablet Orally ONCE A DAY , Discontinued methylPREDNISolone 4 MG Tablet Therapy Pack as directed Orally use as directed Objective: * Vitals: Assessment: Plan: * Treatment: * Images: * Electronic signature of Stevan King MD on 09/27/2024 at 02:27 AM EDT Sign off status: Pending * Provider: Agnieszka King MD, [facility], [facility] Date: 0 10/21/2023 Generated for Wm centeno/Tita/Conismitting on: 0 09/27/2024 02:27 AM EDT
--- OUTSIDE RECORDS SUMMARY | 2024-09-27 01:28 | XMS_ITS | Encounter Summary ---
Author Organization [facility] Address [address] [place] [address] Care Team Providers Care Executive Casino Host Name Role Phone Jeannie Mccord NP Primary Care Provider [phone]- [phone] Encounter Details Date Type Department Care Team (Late Contact Info) Description 02/04/2024 prollie Message Enc [facility] [place] [facility] - [address] [place] [address] [facility] Provider CT results Social History Tobacco Use Types Packs/Day Years Used Date Smoking Tobacco: Never Smokeless Tobacco: Never Alcohol Use Standard Drinks/Week Comments Not Currently 0 (1 standard drink = 0.6 oz pur e alcohol) PHQ-2 Answer Date Recorded Patient Health Questionnaire-2 Score 0 12/24/2023 Comments Unknown Sex and Gender Information Value Date Recorded Sex Assigned at Female 08/25/2024 3:04 PM MONOGRAM TECHNICIAN Legal Sex Female 10:38 AM CDT Gender Identity Female 08/25/2024 3:30 PM MONOGRAM TECHNICIAN Sexual Orientation Not on file documented as of this encounter Plan of Treatment Upcoming Encounters Date Type Department Care Team (Late Contact Info) Description 11/02/2024 10:20 AM CDT Office Visit [facility] [place] [facility] - [facility] [address], [address] [place] [phone] Ney Garrett MD [address] [place] [address] documented as of this encounter Visit Diagnoses Not on filedocumented in this encounter Additional Health Concerns Assessment Noted Time PHQ-9 Depression Total Score: 9 12/24/19 24 3:15 PM CDT documented as of this encounter Care Teams Executive Casino Host Relationship Specialty Start Date End Date Jeannie Mccord, SUBMARINE CABLE EQUIPMENT TECHNICIAN [address] [place] [address] PCP - General NURSE PRACTITIONER 12/24/23 documented as of this encounter
--- OUTSIDE RECORDS SUMMARY | 2024-09-27 01:28 | XMS_ITS | Encounter Summary ---
Author Organization [facility] Address [address] [place] [address] Care Team Providers Care Director Of Residence Life Name Role Phone Jeannie Mccord RESIDENTIAL APPRAISER Primary Care Provider [phone]- [phone] Encounter Details Date Type Department Care Team (Late st Contact Info) Description 01/14/2024 Metabolomic Diagnosticshart Message Enc [facility] [place] [address] [place] [address] Jeannie Mccord, RESIDENTIAL APPRAISER [address] [place] [address] Jocelyne Social History Tobacco Use Types Packs/Day Years Used Date Smoking Tobacco: Never Smokeless Tobacco: Never Alcohol Use Standard Drinks/Week Comments Not Currently 0 (1 standard drink = 0.6 oz pur e alcohol) PHQ-2 Answer Date Recorded Patient Health Questionnaire-2 Score 0 12/24/2023 Comments Unknown Sex and Gender Information Value Date Recorded Sex Assigned at Female 08/25/2024 3:04 PM SEMICONDUCTOR PACKAGES LEAK TESTER Legal Sex Female 10:38 AM CDT Gender Identity Female 08/25/2024 3:30 PM SEMICONDUCTOR PACKAGES LEAK TESTER Sexual Orientation Not on file documented as of this encounter Plan of Treatment Upcoming Encounters Date Type Department Care Team (Late st Contact Info) Description 11/02/2024 10:20 AM CDT Office Visit [facility] - [facility] [address], [address] [place] [address] Ney Garrett MD [address] [place] [address] documented as of this encounter Visit Diagnoses Not on filedocumented in this encounter Additional Health Concerns Assessment Noted Time PHQ-9 Depression Total Score: 9 12/24/19 3:15 PM CDT documented as of this encounter Care Teams Director Of Residence Life Relationship Specialty Start Date End Date Jeannie Mccord, SINA [address] [place] [address] PCP - General NURSE PRACTITIONER 12/24/23 documented as of this encounter
--- OUTSIDE RECORDS SUMMARY | 2024-09-27 01:28 | XMS_ITS | Patient Health Record ---
Author Organization [facility] Address [address] [place] [address] Care Team Providers Care Director Industrial Name Role Phone LEANDRA BEYER Unavailable [phone] ALLERGIES No Known Allergies REASON FOR REFERRAL No Information MEDICATIONS Medication SIG (Take, Route, Fr equency, Duration) Notes Start Date End Date Status hydrOXYzine HCl 50 MG 1 tablet 30 minute s before bedtime as needed Orally Once a day for 30 day(s) 02/04/2022 Active Propranolol HCl 40 MG 1 tablet Orally Once a day Active PLAN OF TREATMENT No Information Insurance Providers Payer Name Payer Address Payer Phone Subscriber Number Group Number Insured Name Patient Relationship to Insured Coverage Start Date Coverage End Date [facility] 2024 [address] [place] [phone] [id number] BRANDY RAMACHANDRAN Self - patient is the insured
--- OUTSIDE RECORDS SUMMARY | 2024-09-27 01:29 | XMS_ITS | Patient Health Record ---
Author Organization [facility] Address [address] [place] [address] Care Team Providers Care Clinical Systems Educator Name Role Phone Unruly Torres [phone] Allergies Allergen (clinical drug ingredient) Drug/Non Drug Allergy documented on EMR Reaction Allergy Type Onset Date Status Lumateperone Lumateperone Unknown Drug Allergy A ctive sumatriptan Sumatriptan Unknown Drug Allergy Act dinorah Reason For Referral No Information Medications Medication SIG (Take, Route, Frequency, Duration) Notes Start Date End Date Status Colchicine 0.6 MG 1 tablet Oral Twice a day for 30 days Active Gabapentin 300 MG 1 capsule Oral Once a day for 30 days Active buPROPion HCl ER (SR) 150 MG 1 tablet in the morning Oral Once a day for 30 days Active Plan Of Treatment No Information Insurance Providers Payer Name Payer Address Payer Phone Subscriber Number Group Number Insured Name Patient Relationship to Insured Coverage Start Date Coverage End Date [facility] [address] [address] [place] [phone] [id number] JOCELNI ARIZMENDI Child - Insured has Financial Responsibility 4
--- OUTSIDE RECORDS SUMMARY | 2024-09-27 01:29 | XMS_ITS | Clinical Summary ---
Author Organization [facility] Address [address] [place] [address] Care Team Providers Care Wall To Wall Carpet Installer Name Role Phone Jeannie Mccord NP Primary Care Provider [phone]- [phone] Allergies Active Allergy Reactions Criticality Noted Date Comments Sumatriptan Throat swelling High 12/24/2023 Medications gabapentin (NEURONTIN) 100 MG capsuleIndicati ons:Left-sided chest wall pain Take 1 capsule (100 mg total) by mouth 2 (two) times daily as needed. 60 capsule 2 06/02/2024 Active valACYclovir (VALTREX) 1 g tabletIndicatio ns:Cold sore Take 1 tablet (1,000 mg total) by mouth 2 (two) times daily. 5 tablet 06/23/2024 Active DULoxetine (CYMBALTA) 20 MG capsuleIndicati ons:Migraine without aura and without status migrainosus, not intractable,Anx iety Take 2 capsules by mouth at bedtime 60 capsule 1 07/07/2024 Active Active Problems Problem Noted Date Diagnosed Date Genital herpes simplex, unspecified site 025 Migraines 08/10/2024 COVID-19 long hauler 08/10/2024 Migraine without aura, not i ntractable, without status migrainosus 06/15/2024 Bug bite, initial encounter 03/03/2024 Left-sided chest wall pain 03/03/2024 Attention deficit hyperactiv ity disorder (ADHD), combined type 01/12/2024 Arthralgia, unspecified joint 01/12/2024 POTS (postural orthostatic tachycardia syndrome) 12/24/2023 Chronic diarrhea 12/24/2023 Nausea and vomiting, unspecified vomiting type 0 12/24/2023 Migraine without aura and wi thout status migrainosus, not intractable 12/24/2023 Myalgia 12/24/2023 Abnormal serum iron level 12/24/2023 Vitamin D deficiency 12/24/2023 History of lung surgery 12/24/2023 Encounters Date Type Department Care Team Description 09/01/2024 - 09/01/2024 11:59 PM RURAL HEALTH CONSULTANT Hospital Encounter [facility] [address] [place] [address] Jeannie Mccord, ADMINISTRATIVE CLERK Discharge Disposition: Home or Self Care (Routine Discharge) 09/01/2024 Travel 08/29/2024 REHhart Message Enc [place] [address] [place] [address] Jeannie Mccord, ADMINISTRATIVE CLERK HCG Doubling 08/28/2024 1:30 PM R[facility] HEALTH CONSULTANT Laboratory Only [place] [address] [place] [address] Jeannie Mccord, ADMINISTRATIVE CLERK 08/28/2024 - 08/28/2024 11:59 PM R[facility] HEALTH CONSULTANT Hospital Encounter [facility] [address] [place] [address] Jeannie Mccord, ADMINISTRATIVE CLERK Discharge Disposition: Home or Self Care (Routine Discharge) 08/28/2024 Travel 08/26/2024 MyChart Message Enc [place] [address] [address] [place] [place] [address] Jeannie Mccord, ADMINISTRATIVE CLERK Dizziness 08/25/2024 3:20 PM R[facility] HEALTH CONSULTANT Office Visit [place] [address] [address] [place] [address] Jeannie Mccord, ADMINISTRATIVE CLERK Test 08/25/2024 - 08/25/2024 11:59 PM R[facility] HEALTH CONSULTANT Hospital Encounter [facility] [address] [place] [address] Jeannie Mccord, ADMINISTRATIVE CLERK Discharge Disposition: Home or Self Care (Routine Discharge) 08/25/2024 Travel 08/10/2024 9:40 AM RURAL HEALTH CONSULTANT Office Visit [facility] - [facility] [address], [address] [place] [phone] Ney Garrett MD Botox Procedure (Chronic migraines) 08/10/2024 Scan HEALTH INFO SRVCS Scanned, [facility] 08/10/2024 Travel 08/09/2024 MyChart [facility] [address], [address] [place] [phone] Ney Garrett MD Out of pocket for botox 07/07/2024 [facility] [facility] [place] [address] [place], [place] [phone] Jeannie Mccord, ADMINISTRATIVE CLERK 07/07/2024 Orders Only [facility] [facility] [place] [address] [place] [address] Jeannie Mccord, ADMINISTRATIVE CLERK 07/07/2024 MyChart Message [facility] [place] [facility] [place] [address] [place], [place] [address] Jeannie Mccord, SINA Sore throat 06/30/2024 Telephone [facility] [place] [address] [facility] [address] [place] [phone] Ney Garrett MD Information 06/29/2024 12:20 PM R[facility] HEALTH CONSULTANT Telemedicine [facility] [facility] [place] [address] [place], [place] [phone] Jeannie Mccord, ADMINISTRATIVE CLERK F/U UC 06/29/2024 Travel 06/29/2024 MyChart Message Enc [facility] [place] - [address] [place] [address] Jeannie Mccord, SINA Sore throat from Last 3 Months Immunizations Name Administration Dates Next Due HPV 07/12/2014 HPV GARDASIL 9-VALENT 02/09/2014 Family History Medical History Relation Comments Alcohol Abuse Father Asthma Father Arthritis Mother Depression Mother Mental Health Mother Miscarriages / Stillbirths Sister Relation Status Comments Father Mother Sister Social History Tobacco Use Types Packs/Day Years Used Date Smoking Tobacco: Never Smokeless Tobacco: Never Tobacco Cessation:Counseling Given: Yes Alcohol Use Standard Drinks/Week Comments Not Currently 0 (1 standard drink = 0.6 oz pur e alcohol) PHQ-2 Answer Date Recorded Patient Health Questionnaire-2 Score 0 08/10/2024 Comments No Sex and Gender Information Value Date Recorded Sex Assigned at Female 08/25/2024 3:04 PM RURAL HEALTH CONSULTANT Legal Sex Female 10:38 AM CDT Gender Identity Female 08/25/2024 3:30 PM RURAL HEALTH CONSULTANT Sexual Orientation Not on file Last Filed Vital Signs Vital Sign Reading Time Taken Comments Blood Pressure 99/71 08/25/2024 3:30 PM RURAL HEALTH CONSULTANT Pulse 83 08/25/2024 3:30 PM R[facility] HEALTH CONSULTANT Temperature 37.7 C (99.8 F) 08/25/2024 3:30 PM RURAL HEALTH CONSULTANT Respiratory Rate 16 08/25/2024 3:30 PM RURAL HEALTH CONSULTANT Oxygen Saturation 98% 08/25/2024 3:30 PM RURAL HEALTH CONSULTANT Inhaled Oxygen Concentration - - Weight 64.5 kg (142 lb 3.2 oz) 08/25/2024 3:30 P M R[facility] HEALTH CONSULTANT Height 157.5 cm (5' 2 ) 08/25/2024 3:30 PM RURAL HEALTH CONSULTANT Body Mass Index 26.01 08/25/2024 3:30 PM RURAL HEALTH CONSULTANT Plan of Treatment Upcoming Encounters Date Type Department Care Team (Late st Contact Info) Description 11/02/2024 10:20 AM CDT Office Visit [facility] Multispecialty Care - [address], [address] [place] [address] Ney Garrett MD [address] [place] [address] Health Maintenance Due Date Last Done Comments Cervical Cancer Screening Pa p Smear (Age 21 to 29) Every 3 Years 2001 Cervical Cancer Screening 2001 Annual Physical 2004 Chlamydia Screening Females ages 16-24 2017 Meningococcal B Vaccine (1 o f 2 - Standard) 2017 DTaP, Tdap and Td Vaccines ( 1 - Tdap) 2020 Hepatitis B Vaccines (1 of 3 - 19+ 3-dose series) 2020 COVID-19 Vaccine (1 - 2023-2 5 season) 2024 Influenza Adult (#1) 2024 HPV Vaccines Completed 07/12/2014, 02/09/2014 Hepatitis C Completed 01/27/2024, 08/13/2023 PHQ-2 (Physician Craig) Completed 08/10/2024 Meningococcal Vaccine Aged Out No susannah da eligible based on patient's age to complete this topic Pneumococcal Vaccine: Pediatrics (0 to 5 Years) and At-Risk Patients (6 to 64 Years) Aged Out No longer eligible b ased on patient's age to complete this topic RSV Immunizations Under 20 Months Aged Out No longer eligible b ased on patient's age to complete this topic Procedures Procedure Name Priority Date/Time Associated Diagnosis Comments HCG QUANT (SERUM)-CHORIONIC GONADOTROPIN Routine 09/01/2024 1:35 PM R[facility] HE[facility] CONSULTANT Positive test (HHS/HCC) COLLECTION VENOUS BLOOD VENIPUNCTURE Routine 08/28/2024 1:25 PM RURAL HEALTH CONSULTANT Positive test (HHS/HCC) HCG QUANT (SERUM)-CHORIONIC GONADOTROPIN Routine 08/28/2024 1:19 PM RURAL HEALTH CONSULTANT Positive test (HHS/HCC) PROGESTERONE Routine 08/25/2024 4:02 PM RURAL HEALTH CONSULTANT Positive test (HHS/HCC) HCG QUANT (SERUM)-CHORIONIC GONADOTROPIN Routine 08/25/2024 3:53 PM RURAL HEALTH CONSULTANT Positive test (HHS/HCC) HEP C SCANNED ORDERS Routine 08/13/2023 from Last 3 Months or Most Recently Relevant to Health Maintenance Results * HCG QUANT (SERUM)-CHORIONIC GONADOTROPIN (09/01/2024 1:35 PM RURAL HEALTH CONSULTANT) Only the most recent of3 resultswithin the time period is included. HCG QUANTITATIVE 453 MIU/ML 09/01/19 9:12 [address] R[facility] HEALTH CONS[facility]ANT [facility] Comment: <5 IS NEGATIVE 5-25 IS BORDERLINE >25 IS POSITIVE ASSAY PERFORMED BY CHEMILUMINESCENCE METHODOLOGY USING SIEMENS DIMENSION VISTA REAGENT. PATIENT RESULTS DETERMINED BY ASSAYS USING DIFFERENT MANUFACTURERS FOR METHODS MAY NOT BE COMPARABLE. 09/01/2024 1:35 PM RURAL HEALTH CONSULTANT Jeannie Mccord NP LABORATORY Final Resul t Performing Organization Address City/[facility]/ZIP Co de Phone Number [facility] [address] [place] [address], [phone] * PROGESTERONE (08/25/2024 4:02 PM RURAL HEALTH CONSULTANT) PROGESTERONE 17.0 NG/ML 08/26/2024 4:12 [address] [facility] Comment: FOLLIC PHASE: 0.2 TO 1.7 ng/mL LUTEAL PHASE: 2.3 TO 24.2 ng/mL POST MENAPAUSAL: <0.2 TO 0.9 ng/mL 1ST TRIMESTER: 11.4 TO 41.0 ng/mL 2ND TRIMESTER: 13.9 TO 156.0 ng/mL 3RD TRIMESTER: 51.4 TO >200.0 ASSAY PERFORMED BY CHEMILUMINESCENCE METHODOLOGY USING SIEMENS DIMENSION VISTA REAGENT. PATIENT RESULTS DETERMINED BY ASSAYS USING DIFFERENT MANUFACTURERS FOR METHODS MAY NOT BE COMPARABLE. 08/25/2024 4:02 PM RURAL HEALTH CONSULTANT Jeannie Mccord NP LABORATORY Final Resul t Performing Organization Address City/[facility]/ZIP Co de Phone Number [facility] [address] [place] [address], [place] [phone] * HEP C SCANNED ORDERS (08/13/2023) us [facility] Scanned SCANNING Final Resu lt [facility] ON[facility] from Last 3 Months or Most Recently Relevant to Health Maintenance Insurance [facility] Care Teams Wall To Wall Carpet Installer Relationship Specialty Start Date End Date Jeannie Mccord, ADMINISTRATIVE CLERK [address] [place] [address] PCP - General NURSE PRACTITIONER 12/24/23
--- OUTSIDE RECORDS SUMMARY | 2024-09-27 01:29 | XMS_ITS ---
Author Organization [facility] Address [address] [place] [address] Care Team Providers Care Tire Manager Name Role Phone Unruly Joseph [phone] Allergies Allergen (clinical drug ingredient) Drug/Non Drug Allergy documented on EMR Reaction Allergy Type Onset Date Status Lumateperone Lumateperone Unknown Drug Allergy A ctive sumatriptan Sumatriptan Unknown Drug Allergy Act dinorah REASON FOR VISIT OFFSHORE DIVER/SOB/COUGHING/SELF REFERRAL Medications Medication SIG (Take, Route, Frequency, Duration) Notes Start Date End Date Status Colchicine 0.6 MG 1 tablet Oral Twice a day for 30 days Active Gabapentin 300 MG 1 capsule Oral Once a day for 30 days Active buPROPion HCl ER (SR) 150 MG 1 tablet in the morning Oral Once a day for 30 days Active Encounters Encounter Location Date Provider Diagnosis [facility] [address] [place] [address] 10/11/2023 Unruly Joseph Plan Of Treatment No Information Progress Notes * BRANDY RAMACHANDRANDOB: [birth year] (24 yo F)Acc No.[id number]:10/11/2023 Progress Notes Patient: BRANDY CASTELLANO Provider: Benigno JOSEPH MD :2000 A ge:23 Y S ex:Female Date:10/11/2023 Address:[address] [place], [id number] Subjective: * Chief Complaints: * 1 . OFFSHORE DIVER/SOB/COUGHING/SELF REFERRAL. * Medical History: * Medications: T aking buPROPion HCl ER (SR) 150 MG Tablet Extended Release 12 Hour 1 tablet in the morning Oral Once a day , Taking Gabapentin 300 MG Capsule 1 capsule Oral Once a day , Taking Colchicine 0.6 MG Tablet 1 tablet Oral Twice a day * Allergies: S umatriptan, Lumateperone. Objective: * Vitals: Assessment: Plan: * Treatment: * Billing Information: * Visit Code: * Procedure Codes: * Electronic signature of Unruly Joseph MD on 09/27/2024 at 01:29 AM CDT Sign off status: Pending * Provider: Benigno JOSEPH MD Date: 10/11/2023 Generated for Wm centeno/Tita/Loren on: 09/27/2024 01:29 AM CDT
--- NOTE | 2024-09-27 02:41 | WPDHPUPDATE1 ---
History and Physical Update Update Date/Time: 09/27/24 02:41 History and Physical has been reviewed, including an updated exam of the patient. There are NO changes in the patient's condition. Risks, benefits, and alternatives have been discussed and questions answered. Patient agrees to proceed with procedure.
[2024-09-27 06:15] VITALS: BP 108/64; PULSE 83; RESP 14; TEMP 37.1; O2SAT 100; BMI 26.4
[2024-09-27] MEDS: ACETAMINOPHEN 500 MG TABLET 1000 MG PO (06:25)
--- NOTE | 2024-09-27 06:48 | P.PNAN_ITS ---
Anes - Initial Pre Proc Eval Procedure: Operation Date: 09/27/24 07:30 Proposed Procedures p Suction Dilation and Curettage - Buck Henson MD Date/Time: 09/27/24 06:48 Surgeon: Buck Henson MD Pre Op Diagnosis: missed ab Patient Data Age: 24 Gender: F Height: 1.57 m Weight: 65.5 kg Last Vital Signs Temp 37.1 C 09/27/24 06:15 Pulse 83 09/27/24 06:15 Resp 14 09/27/24 06:15 BP 108/64 09/27/24 06:15 Pulse Ox 100 09/27/24 06:15 O2 Del Method Room Air 09/27/24 06:15 Allergies Allergy/AdvReac Type Severity Reaction Status Date / Time sumatriptan AdvReac Unknown Dizziness Verified 09/26/24 12:39 Home Medications ?Medication ?Instructions ?Recorded ?Confirmed ?Type acetaminophen 500 mg tablet 500 mg PO Q6H PRN pain 09/26/24 09/26/24 History (Tylenol Extra Strength) doxylamine succinate 25 mg tablet 25 mg PO HS PRN nausea 09/26/24 09/26/24 History ondansetron HCl 4 mg tablet 4 mg PO Q6H PRN nausea and vomiting 09/26/24 09/26/24 History hydrocodone 5 mg-acetaminophen 325 1 tablet PO Q4H PRN pain #14 tabs 09/27/24 Rx mg tablet Patient hx anesthesia problems: none Family hx anesthesia problems: none Results Review: All pre-operative results and documents have been reviewed as part of the pre- operative evaluation. [facility] Surgical History Surgical History (Updated 09/27/24 @ 06:49 by Buck Gallardo MD) History of ankle surgery left tendon lengthening at medial ankle Social History Social History Smoking status: Former smoker Tobacco type: e-cigarettes/vaping Smokeless tobacco user: other Alcohol intake: former Substance use: former Substance use type: marijuana Living arrangements: alone Spiritual care concerns: No Anes - Eval Final PreProcedure Day of Procedure 09/27/24 06:48 Patient weight: normal Heart: regular rate and rhythm Lungs: clear to auscultation Airway: Mallampati scale class II Neurological: alert and oriented Last oral intake: >/= 8 hours ASA classification: II Emergent: no Anesthetic plan: proceed Anesthesia type and monitoring: general GIVS and standard monitoring Results Review: All pre-operative results and documents have been reviewed as part of the pre- operative evaluation. Informed Consent: The patient's anesthetic plan and its attendant risks and benefits were discussed with the patient/family/POA. Questions were solicited and answers provided to the satisfaction of the patient/family/POA.
[2024-09-27] MEDS: LACTATED RINGERS 1,000 ML 30 ML IV CONT ×2 (07:00→08:36)
[2024-09-27 07:09] LABS: Hematocrit 38.2 % (37.0-47.0); Hemoglobin 13.2 g/dL (12.0-15.0)
--- NOTE | 2024-09-27 07:39 | P.OP_ITS ---
Procedure Note - Detailed Date of Procedure 09/27/24 Pre-op Diagnosis missed ab Post-op Diagnosis Same Procedure Performed Suction dilatation and curettage Surgeon Buck Henson MD Anesthesia MAC and Local Indications 24-year-old 2 para 0 first-trimester with missed A/B Findings Uterus 10 tissue consistent with products conception present. Description of Procedure The patient was prepped draped in the normal sterile fashion placed in the dorsal lithotomy position. Under excellent sedation speculum placed posterior. Cervix grasped with single-tooth tenaculum. Two and asked cc 1% xylocaine ane sthesia placed at 2, 10 the cervix. Uterus to 10cm. Serial dilatation with fragmented dilators performed followed by passage of the 10. Cure suction curette a moderate amount of tissue was removed. When a good grating sound was heard the instruments withdrawn the patient was awakened went recovery in satisfactory condition. All sponge, needle, instrument counts were correct. There were no immediate complications Estimated Blood Loss 25 Drains No Packing No Pathology Yes Complications No immediate complications Condition Stable Disposition PACU
[2024-09-27 07:40] VITALS: BP 86/50; PULSE 69; RESP 12; O2SAT 96
[2024-09-27] MEDS: LIDOCAINE 1% LOCAL INJ 10 ML VIAL INFILTRATE (07:43)
--- NOTE | 2024-09-27 07:45 | SUR.OPER ---
Specimen delivered to pathology by MARLA Ann to FLOR[facility]
[2024-09-27 08:10] VITALS: BP 91/52; PULSE 64; RESP 20
[2024-09-27] MEDS: fentaNYL CITRATE INJ (*CRX) 100 MCG/2 ML VIAL 25 MCG IV PUSH ×4 (08:20→09:11)
[2024-09-27] MEDS: KETOROLAC 30 MG/ML VIAL (*BKC) IV PUSH (08:34)
[2024-09-27 08:40] VITALS: BP 113/55; PULSE 71; RESP 20
[2024-09-27] MEDS: ONDANSETRON INJ 4 MG/2 ML VIAL IV PUSH (08:55)
[2024-09-27 09:10] VITALS: BP 113/55; PULSE 71; RESP 20
[2024-09-27] MEDS: oxyCODONE HCL (*CRX) 5 MG TAB IR PO (09:17)
[2024-09-27] MEDS: RHO(D) IMMUNE GLOBULIN 300 MCG/2 ML SYRINGE IM (09:24)
[2024-09-27 09:40] VITALS: BP 101/55; PULSE 69; RESP 20
== END 2024-09-27 09:45 | disposition home or self-care (01) ==
PROVIDERS: PCP Nurse Practitioner; Visit Provider Obstetrics & Gynecology
PROC: (CPT 59820; principal; 2024-09-27 07:30)
DX: O02.1 Missed abortion (principal); Z87.891 Personal history of nicotine dependence
CPT/HCPCS: 59820; 36415; 85014; 85018; 85461; 86850; 86900; 86901; 88264; 88305; 90384; A9270; J1885; J2003; J2250; J2405; J2704; J2790; J3010; J7120

== ENCOUNTER 2025-01-08 07:46 | Emergency (ER) | payer BC, SELFPAY ==
[2025-01-08] VITALS (8 sets, daily range): BP systolic 115–144; BP diastolic 67–94; PULSE 58–91; RESP 16–20; TEMP 36.5; O2SAT 97–100
--- NOTE | 2025-01-08 08:09 | ED.NAVMDI ---
HPI - Nausea/Vomiting/Diarrhea General Chief complaint: Nausea/Vomiting/Diarrhea Stated complaint: Sever stomach pain and vo,itting for 3 days Time Seen by Provider: 01/08/25 07:56 History of Present Illness HPI Narrative: Pt presents with nausea and vomiting and diffuse abdominal pain. Mother states she gets spells like this often but usually relieved with zofran but not working now. Pt does admit to smoking cannabis. Related Data Home Medications ?Medication ?Instructions ?Recorded ?Confirmed ?Last Taken ?Type acetaminophen 500 mg tablet 500 mg PO Q6H PRN pain 09/26/24 09/26/24 09/24/24 History (Tylenol Extra Strength) doxylamine succinate 25 mg tablet 25 mg PO HS PRN nausea 09/26/24 09/26/24 09/25/24 History ondansetron HCl 4 mg tablet 4 mg PO Q6H PRN nausea and vomiting 09/26/24 09/26/24 09/26/24 07:00 History 4 mg Allergies Allergy/AdvReac Type Severity Reaction Status Date / Time sumatriptan AdvReac Unknown Dizziness Verified 09/27/24 07:16 Review of Systems Review of Systems: All systems reviewed & are unremarkable except as noted in HPI and below PMFSH Surgical History Surgical History (Updated 09/27/24 @ 06:49 by Buck Gallardo MD) History of ankle surgery left tendon lengthening at medial ankle Social History Social History Smoking status: Former smoker Tobacco type: e-cigarettes/vaping Smokeless tobacco user: other Alcohol intake: former Substance use: former Substance use type: marijuana Living arrangements: alone Spiritual care concerns: No Exam Const: General: no acute distress Nutritional Appearance: well nourished Orientation/consciousness: patient oriented x3 Limitations: behavioral limitations (pt crying, flopping around on cart vomiting very dramatic) HENMT: Mouth: Yes dry mucous membranes Resp: Effort & Inspection: normal respiratory effort Auscultation: clear to auscultation bilaterally Cardio: Rate: regular rate Rhythm: regular rhythm GI: GI Palp: Yes Soft to palpation and Yes Tenderness to palpation present (GI) (diffusely) Auscultation: Hyperactive bowel sounds present Back/Spine/Pelvis: Back: no CVA tenderness Skin: General skin exam: normal color Rashes: no rashes Wounds: no wounds Neuro: General: patient oriented x3, moves all extremities and no focal motor deficits Extrem: General: normal to inspection and no clubbing, cyanosis or edema Psych: Affect: Anxious affect present Course Vital Signs Vital signs: Vital Signs Temperature 97.7 F 01/08/25 07:54 Pulse Rate 91 01/08/25 07:54 Respiratory Rate 20 01/08/25 07:54 Blood Pressure 124/94 H 01/08/25 07:54 Pulse Oximetry 100 01/08/25 07:54 Oxygen Delivery Room Air 01/08/25 07:54 Temperature 97.7 F 01/08/25 07:54 Pulse Rate 73 01/08/25 10:45 Respiratory Rate 18 01/08/25 10:45 Blood Pressure 144/87 H 01/08/25 10:45 Pulse Oximetry 100 01/08/25 10:45 Oxygen Delivery Room Air 01/08/25 07:54 MDM - Nausea/Vomiting/Diarrhea MDM Narrative Medical decision making narrative: Pt presenting with vomiting and diffuse abdominal pain. Pt fits profile for cannabis hyperemesis syndrome though could be a lot of things. will give some IV fluids and haldol and check labs and reassess. Pt still having some nausea and pain. labs look ok. will give a little fentanyl and compazine. Pt sleeping now. ok to discharge on compazine. advised to stop smoking cannabis and to follow up with pcp for anxiety Lab Data 01/08/25 08:14 01/08/25 08:14 Labs: Lab Results 01/08/25 Range/Units 08:14 WBC 12.0 H (4.5-10.0) K/mm3 RBC 4.24 (4.2-5.4) M/mm3 Hgb 12.9 (12.0-15.0) g/dL Hct 37.3 (37.0-47.0) % MCV 88.0 (80-100) fl MCH 30.4 (26-34) pg MCHC 34.6 (32-36) g/dl RDW 12.2 (11.5-14.5) % Plt Count 285 (150-375) k/mm3 MPV 10.5 H (7.4-10.4) fl Immature Gran % (Auto) 0.3 (0-0.5) % Neut % (Auto) 76.4 H (45.5-73.1) % Lymph % (Auto) 15.2 L (18.3-44.2) % [place] % (Auto) 7.4 (2.6-8.5) % Eos % (Auto) 0.3 (0-4.4) % Baso % (Auto) 0.4 (0.2-1.2) % Lymph # (Auto) 1.83 (0.9-3.2) K/mm3 [place] # (Auto) 0.9 H (0.1-0.6) K/mm3 Eos # (Auto) 0.0 (0-0.3) K/mm3 Baso # (Auto) 0.1 (0.0-0.1) K/mm3 Abs Immat Gran (auto) 0.04 H (0.00-0.031) K/mm3 Absolute Neuts (auto) 9.2 H (1.3-6.7) K/mm3 Absolute Nucleated RBC 0.000 (0.0-0.012) K/mm3 Nucleated RBC % 0.0 (0.0-0.2) % Sodium 139 (137-145) mmol/L Potassium 3.5 (3.4-5.0) mmol/L Chloride 105 (98-107) mmol/L Carbon Dioxide 19 L (22-30) mmol/L Anion Gap 15 H (4-12) mmol/L BUN 9 (7-17) mg/dL Creatinine 0.61 L (0.7-1.0) mg/dL Estim Creat Clear Calc 97 ml/min Estimated GFR > 60 (59 - ) Glucose 107 (65-110) mg/dL Calcium 10.0 (8.4-10.2) mg/dL Total Bilirubin 0.6 (0.2-1.3) mg/dL AST 30 (14-36) U/L ALT 19 (6-35) U/L Alkaline Phosphatase 73 (38-126) U/L Total Protein 7.7 (6.3-8.2) g/dL Albumin 4.6 (3.5-5.1) g/dL Lipase 101 (23-300) U/L Beta HCG, Quant < 2.39 mIU/ML Discharge Plan Discharge Clinical Impression: Gastroenteritis Patient Disposition: Home Condition: Stable Instructions: Antibiotic Form, Gastroenteritis (ED), Acute Nausea and Vomiting (ED) Patient Language: East Timorese Prescriptions: New prochlorperazine maleate [Compazine] 10 mg tablet 10 mg PO Q8H PRN (Reason: nausea and vomiting) Qty: 14 0RF No Action ondansetron HCl 4 mg tablet 4 mg PO Q6H PRN (Reason: nausea and vomiting) acetaminophen [Tylenol Extra Strength] 500 mg tablet 500 mg PO Q6H PRN (Reason: pain) doxylamine succinate 25 mg tablet 25 mg PO HS PRN (Reason: nausea) hydrocodone-acetaminophen 5-325 mg tablet 1 tablet PO Q4H PRN (Reason: pain) Qty: 14 0RF Follow-up/Referrals: Suri,Jeannie Jane, WELDING MACHINE OPERATOR RESISTANCE [Primary Care Provider] -
[2025-01-08 08:19] LABS: Basophils Absolute Auto 0.1 K/mm3 (0.0-0.1); Basophils Percent Auto 0.4 % (0.2-1.2); Eosinophils Percent Auto 0.3 % (0-4.4); Hematocrit 37.3 % (37.0-47.0); Hemoglobin 12.9 g/dL (12.0-15.0); Immature Granulocyte Absolute 0.04 K/mm3 (0.00-0.031); Immature Granulocyte Percent A 0.3 % (0-0.5); Lymphocytes Absolute Auto 1.83 K/mm3 (0.9-3.2); Lymphocytes Percent Auto 15.2 % (18.3-44.2); Mean Corpuscular HGB Conc 34.6 g/dl (32-36); Mean Corpuscular Hemoglobin 30.4 pg (26-34); Mean Platelet Volume 10.5 fl (7.4-10.4); Monocytes Absolute Auto 0.9 K/mm3 (0.1-0.6); Monocytes Percent Auto 7.4 % (2.6-8.5); Neutrophils Absolute Auto 9.2 K/mm3 (1.3-6.7); Neutrophils Percent Auto 76.4 % (45.5-73.1); Platelet Count Result 285 k/mm3 (150-375); Red Blood Count 4.24 M/mm3 (4.2-5.4); Red Cell Distribution Width 12.2 % (11.5-14.5)
[2025-01-08] MEDS: HALOPERIDOL LACTATE 5 MG/ML VIAL IV PUSH (08:19)
[2025-01-08] MEDS: SODIUM CHLORIDE 0.9% IV 1,000 ML 999 ML IV CONT (08:19)
[2025-01-08 08:33] LABS: Alanine Aminotransferase 19 U/L (6-35); Albumin Level 4.6 g/dL (3.5-5.1); Alkaline Phosphatase 73 U/L (38-126); Anion Gap 15 mmol/L (4-12); Aspartate Amino Transferase 30 U/L (14-36); Bilirubin,Total 0.6 mg/dL (0.2-1.3); Blood Urea Nitrogen 9 mg/dL (7-17); Carbon Dioxide 19 mmol/L (22-30); Chloride 105 mmol/L (98-107); Estimated CRCL calculation 97 ml/min; Estimated Glomerular Filt Rate > 60; Glucose 107 mg/dL (65-110); Lipase 101 U/L (23-300); Potassium 3.5 mmol/L (3.4-5.0); Sodium 139 mmol/L (137-145); Total Protein 7.7 g/dL (6.3-8.2)
[2025-01-08 08:50] LABS: Beta HCG Quantitative < 2.39 mIU/ML
[2025-01-08] MEDS: PROCHLORPERAZINE EDISYLATE 10 MG/2 ML VIAL IV PUSH (10:38)
[2025-01-08] MEDS: fentaNYL CITRATE INJ (*CRX) 100 MCG/2 ML VIAL 50 MCG IV PUSH (10:38)
--- NOTE | 2025-01-08 11:00 | PC.NURSE ---
Report given to ALAN Frederick
== END 2025-01-08 11:28 | disposition home or self-care (01) ==
PROVIDERS: Emergency Provider Emergency Medicine; PCP Nurse Practitioner
DX: K52.9 Noninfective gastroenteritis and colitis, unspecified (principal); Z87.891 Personal history of nicotine dependence
CPT/HCPCS: 36415; 80053; 83690; 84702; 85025; 96361; 96374; 96375; 99284; J0780; J1630; J3010; J7030

== ENCOUNTER 2025-06-27 23:01 | Observation (INO) | payer BC, OTHER, SELFPAY ==
--- NOTE | ~2025-06-27 | CT_ITS ---
CT ABDOMEN AND PELVIS WITHOUT CONTRAST Clinical History: concern for appendicitis, pt is 10 weeks Comparison: None Technique: Unenhanced axial images lung bases to symphysis pubis Coronal, sagittal reformats CT images acquired with automatic exposure control for dose reduction DLP: 259 mGy-cm Findings: Without intravenous contrast, sensitivity for detecting visceral parenchymal abnormalities decreased. Lung bases: Clear. Visualized heart and pericardium: Unremarkable. Liver: Unremarkable. Gallbladder: Unremarkable. Spleen: Unremarkable. Pancreas: Unremarkable. Adrenal glands: Unremarkable. Kidneys: Right kidney- No hydronephrosis. No renal stones. Left kidney- No hydronephrosis. No renal stones. Distal esophagus/stomach: Unremarkable. Small bowel loops: Normal caliber and wall thickness. Colon: Normal caliber and wall thickness. Appendix minimally enlarged with subtle surrounding inflammation. Nodes: No enlarged nodes. Peritoneum: No ascites. No free intraperitoneal air. Urinary bladder: Unremarkable. Uterus: IUP. Adnexa: No masses. Bones: No acute bony abnormality. Soft tissues: Unremarkable. Unopacified abdominal aorta: No aneurysmal dilatation. IMPRESSION: 1. Worrisome for early acute appendicitis. Reviewed, dictated and finalized at location R. R WATER HEATER INSTALLER
[2025-06-27 23:02] VITALS: BP 128/75; PULSE 119; RESP 24; TEMP 36.3; O2SAT 100
--- OUTSIDE RECORDS SUMMARY | 2025-06-27 23:04 | XMS_ITS | Encounter Summary ---
Author Organization [facility] Address [address] [place] [address] Care Team Providers Care Carpenter Rough Name Role Phone Jeannie Mccord MANAGER DIESEL Primary Care Provider [phone] Encounter Details Date Type Department Care Team (Late st Contact Info) Description 06/23/2024 Cell[facility]hart [facility] [place] [facility] [place] [address] [place], [place] [id number] Jeannie Mccord, SINA [address] [place], [place] [id number] Herpes Medication Social History Tobacco Use Types Packs/Day Years Used Date Smoking Tobacco: Never Smokeless Tobacco: Never Alcohol Use Standard Drinks/Week Comments Not Currently 0 (1 standard drink = 0.6 oz pur e alcohol) PHQ-2 Answer Date Recorded Patient Health Questionnaire-2 Score 0 12/24/2023 Comments No Sex and Gender Information Value Date Recorded Sex Assigned at Female 08/25/2024 3:04 PM INDUSTRY ANALYST Legal Sex Female 10:38 AM CDT Gender Identity Female 08/25/2024 3:30 PM INDUSTRY ANALYST Sexual Orientation Not on file documented as of this encounter Plan of Treatment Upcoming Encounters Date Type Department Care Team (Late st Contact Info) Description 06/28/2025 10:00 AM INDUSTRY ANALYST Office Visit [facility] [place] [facility] - [place] [address] [place], [place] [id number] Jeannie Mccord NP [address] [place] [address] 06/28/2025 10:40 AM INDUSTRY ANALYST Office Visit [facility] - [address], [address] [place] [address] Ney Garrett MD [address] [place] [address] 09/27/2025 10:40 AM CDT Office Visit [facility] - [address], [address] [place] [address] Ney Garrett MD [address] [place] [address] documented as of this encounter Visit Diagnoses Not on filedocumented in this encounter Additional Health Concerns Assessment Noted Time PHQ-9 Depression Total Score: 9 12/24/19 24 3:15 PM CDT documented as of this encounter Care Teams Carpenter Rough Relationship Specialty Start Date End Date Jeannie Mccord, MANAGER DIESEL [address] [facility] [address] [place] [address] PCP - General NURSE PRACTITIONER 12/24/23 documented as of this encounter
--- OUTSIDE RECORDS SUMMARY | 2025-06-27 23:04 | XMS_ITS | Encounter Summary ---
Author Organization [facility] Address [address] [place] [address] Care Team Providers Care Shank Turner Name Role Phone Jeannie Mccord MILL OPERATOR HELPER Primary Care Provider [phone] Encounter Details Date Type Department Care Team (Late st Contact Info) Description 12/24/2023 Keona Healthhart Message Enc [facility] Multispecialty Care - [place] [address] [place], [place] [id number] Jeannie Mccord, SINA [address] [place] [address] symptoms Social History Tobacco Use Types Packs/Day Years Used Date Smoking Tobacco: Never Smokeless Tobacco: Never Alcohol Use Standard Drinks/Week Comments Not Currently 0 (1 standard drink = 0.6 oz pur e alcohol) PHQ-2 Answer Date Recorded Patient Health Questionnaire-2 Score 0 12/24/2023 Comments Unknown Sex and Gender Information Value Date Recorded Sex Assigned at Female 08/25/2024 3:04 PM MAKEUP SALES CONSULTANT Legal Sex Female 10:38 AM CDT Gender Identity Female 08/25/2024 3:30 PM MAKEUP SALES CONSULTANT Sexual Orientation Not on file documented as of this encounter Functional Status * Over the past 2 weeks, how often have you been bothered by any of the following problems? Question Answer Date of Assessment Author Status Little interest or pleasure in doing things Not at all 12/24/2023 3:15 PM CDT Ivy Lowry MA Acti ve Feeling down, depressed, or hopeless Not at all 12/24/2023 3:15 PM CDT Ivy Lowry MA Active Patient Health Questionnaire-2 Score 0 12/24/2023 3:15 PM CDT Ivy Lowry M A Active * Question Answer Date of Assessment Author Status Trouble falling or staying asleep, or sleeping too much Nearly every day 12/24/2023 3:15 PM CDT Ivy Lowry MA Active Feeling tired or having little energy Nearly every day 12/24/2023 3:15 PM CDT Ivy Lowry MA Active Poor appetite or overeating Not at all 12/24/2023 3:15 PM CDT Ivy Lowry MA Active Feeling bad about yourself - or that you are a failure or have let yourself or your family down Not at all 12/24/2023 3:15 PM Ivy Araiza MA Active Trouble concentrating on things, such as reading the newspaper or watching television Nearly every day 12/24/2023 3:15 PM CDT Ivy Lowry MA Active Moving or speaking so slowly that other people could have noticed? Or the opposite - being so fidgety or restless that you have been moving around a lot more than usual. Not at all 12/24/2023 3:15 PM Ivy Araiza MA Active Thoughts that you would be better off or hurting yourself in some way Not at all 12/24/2023 3:15 PM Ivy Araiza MA Active Patient Health Questionnaire-9 Score 9 12/24/2023 3:15 PM CDT Ivy Lowry MA Active * Over the last 2 weeks, how often have you been bothered by any of the following problems? Question Answer Date of Assessment Author Status Feeling nervous, anxious, or on edge 1 12/24/2023 3:18 PM CDIvy Philip MA Acti ve Not being able to stop or control worrying 1 12/24/2023 3:18 PM CDIvy Philip MA Act dinorah Worrying too much about different things 2 12/24/2023 3:18 PM CDT Ivy Lowry MA Act dinorah Trouble relaxing 2 12/24/2023 3:18 PM CDT Ivy Lowry MA Active Being so restless that it is hard to sit still 2 12/24/2023 3:18 PM CDT Ivy Lowry MA Active Becoming easily annoyed or irritable 2 12/24/2023 3:18 PM CDT Ivy Lowry MA Acti ve Feeling afraid as if something awful might happen 0 12/24/2023 3:18 PM CDT Ivy Lowry MA Acti ve KATYA-7 Total Score 10 12/24/2023 3:18 PM CDT Ivy Lowry MA Active documented as of this encounter Plan of Treatment Upcoming Encounters Date Type Department Care Team (Late st Contact Info) Description 06/28/2025 10:00 AM MAKEUP SALES CONSULTANT Office Visit [facility] - [place] [address] [place] [address] Jeannie Mccord, MILL OPERATOR HELPER [address] [facility] [address] [place] [address] 06/28/2025 10:40 AM MAKEUP SALES CONSULTANT Office Visit [facility] - [address], [address] [place] [phone] Ney Garrett MD [address] [place] [address] 09/27/2025 10:40 AM CDT Office Visit [facility] - [facility] [address] [facility], [address] [place] [phone] Ney aGrrett MD [address] [place] [address] documented as of this encounter Visit Diagnoses Not on filedocumented in this encounter Additional Health Concerns Assessment Noted Time PHQ-9 Depression Total Score: 9 12/24/19 24 3:15 PM CDT documented as of this encounter Care Teams Shank Turner Relationship Specialty Start Date End Date Jeannie Mccord, MILL OPERATOR HELPER [address] [facility] [address] [place] [address] PCP - General NURSE PRACTITIONER 12/24/23 documented as of this encounter
--- OUTSIDE RECORDS SUMMARY | 2025-06-27 23:04 | XMS_ITS | Encounter Summary ---
Author Organization [facility] Address [address] [place] [address] Care Team Providers Care Specialty Sales Representative Name Role Phone Jeannie Mccord NP Primary Care Provider [phone] Encounter Details Date Type Department Care Team (Latest Contact Info) Description 01/09/2024 PerfectServehart Message [facility] [place] [address] [place] [address] Jeannie Mccord, SINA [address] [place] [address] Cardiology referral & current symptoms Social History Tobacco Use Types Packs/Day Years Used Date Smoking Tobacco: Never Smokeless Tobacco: Never Alcohol Use Standard Drinks/Week Comments Not Currently 0 (1 standard drink = 0.6 oz pur e alcohol) PHQ-2 Answer Date Recorded Patient Health Questionnaire-2 Score 0 12/24/2023 Comments Unknown Sex and Gender Information Value Date Recorded Sex Assigned at Female 08/25/2024 3:04 PM EDUCATION FINANCE PROCESSOR Legal Sex Female 10:38 AM CDT Gender Identity Female 08/25/2024 3:30 PM EDUCATION FINANCE PROCESSOR Sexual Orientation Not on file documented as of this encounter Plan of Treatment Upcoming Encounters Date Type Department Care Team (Late st Contact Info) Description 06/28/2025 10:00 AM EDUCATION FINANCE PROCESSOR [facility] [place] [address] [place], [place] [address] Jeannie Mccord, SINA [address] [place] [address] 06/28/2025 10:40 AM EDUCATION FINANCE PROCESSOR Office Visit [address], [address] [place] [address] Ney Garrett MD [address] [place] [address] 09/27/2025 10:40 AM CDT Office Visit [facility] - [address], [address] [place] [address] Ney Garrett MD [address] [place] [address] documented as of this encounter Visit Diagnoses Not on filedocumented in this encounter Additional Health Concerns Assessment Noted Time PHQ-9 Depression Total Score: 9 12/24/19 24 3:15 PM CDT documented as of this encounter Care Teams Specialty Sales Representative Relationship Specialty Start Date End Date Jeannie Mccord LABOR AND DELIVERY NURSE [address] [place] [address] PCP - General NURSE PRACTITIONER 12/24/23 documented as of this encounter
--- OUTSIDE RECORDS SUMMARY | 2025-06-27 23:04 | XMS_ITS | Encounter Summary ---
Author Organization [facility] Address [address] [place] [address] Care Team Providers Care Patient Registrar Name Role Phone Jeannie Mccord NP Primary Care Provider [phone] Encounter Details Date Type Department Care Team (Latest Contact Info) Description 02/01/2024 Ra Pharmaceuticalshart Message [facility] - [place] [address] [place] [address] Jeannie Mccord, SINA [address] [place] [address] X-Rays for Rheumatology Social History Tobacco Use Types Packs/Day Years Used Date Smoking Tobacco: Never Smokeless Tobacco: Never Alcohol Use Standard Drinks/Week Comments Not Currently 0 (1 standard drink = 0.6 oz pur e alcohol) PHQ-2 Answer Date Recorded Patient Health Questionnaire-2 Score 0 12/24/2023 Comments Unknown Sex and Gender Information Value Date Recorded Sex Assigned at Female 08/25/2024 3:04 PM SUPERVISOR FINISHING DEPARTMENT Legal Sex Female 10:38 AM CDT Gender Identity Female 08/25/2024 3:30 PM SUPERVISOR FINISHING DEPARTMENT Sexual Orientation Not on file documented as of this encounter Plan of Treatment Upcoming Encounters Date Type Department Care Team (Late st Contact Info) Description 06/28/2025 10:00 AM SUPERVISOR FINISHING DEPARTMENT [facility] - [place] [address] [place], [place] [address] Jeannie Mccord, SINA [address] [place] [address] 06/28/2025 10:40 AM SUPERVISOR FINISHING DEPARTMENT Office Visit [address], [address] [place] [address] Ney Garrett MD [address] [place] [address] 09/27/2025 10:40 AM CDT Office Visit [facility] - [address], [address] [place] [address] Ney Garrett MD [address] [place] [address] documented as of this encounter Visit Diagnoses Not on filedocumented in this encounter Additional Health Concerns Assessment Noted Time PHQ-9 Depression Total Score: 9 12/24/19 24 3:15 PM CDT documented as of this encounter Care Teams Patient Registrar Relationship Specialty Start Date End Date Jeannie Mccord OTOLARYNGOLOGY SURGEON [address] [place] [address] PCP - General NURSE PRACTITIONER 12/24/23 documented as of this encounter
--- OUTSIDE RECORDS SUMMARY | 2025-06-27 23:04 | XMS_ITS | Patient Health Record ---
Author Organization [facility] Address [address] [facility] [address] [place] [address] Care Team Providers Care Qa Intern Name Role Phone Ruby Brown Primary Care Provider Jose Matos Unavailable [phone] Allergies Allergen (clinical drug ingredient) Drug/Non Drug Allergy documented on EMR Reaction Allergy Type Onset Date Status sumatriptan Sumatriptan Unknown Drug Allergy Act dinorah Reason For Referral No Information Medications Medication SIG (Take, Route, Fr equency, Duration) Notes Start Date End Date Status Colchicine 0.6 MG 1 tablet Orally ONCE A DAY; Duration: 30 days 08/19/2023 Active Naproxen 500 MG 1 tablet with food o r milk as needed Orally every 12 hrs Activ e Tylenol 325 MG 2 tablet as needed O rally every 4 hrs Active Problems Problem Type SNOMED Code ICD Code Onset Dates Problem Status W/U Status Risk Notes Problem Attention deficit hyperactivity disorder (278640437) Attention-deficit hyperactivity disorder, unspecified type (F90.9) Active confirmed Problem Pericarditis (disorder) (1096509) Pericarditis in diseases classified elsewhere (I32) Active confirmed Problem Cardiac arrhythmia (581177396) Other specified cardiac arrhythmias (I49.8) Active confirmed Problem Palpitations (67125253) Palpitations (R00.2) Active confirmed Problem Shortness of breath (923509204) Shortness of breath (R06.02) Active confirmed Problem Precordial pain (93099934) Precordial pain (R07.2) Active confirmed Problem Syncope and collapse (182020691) Syncope and collapse (R55) Active confirmed Problem Postural orthostatic tachycardia syndrome (disorder) (184500162) Postural orthostatic tachycardia syndrome [POTS] (G90.A) Active confirmed Plan Of Treatment Pending Test Test Name Order Date Echocardiogram 08/15/2021 EKG 08/15/2021 EKG 11/10/2022 EKG 05/04/2023 EKG 07/28/2023 EKG 08/19/2023 ETT Stress 12/16/[address] angiogram 07/28/[address] angiogram 08/19/2023 ZioPatch 08/15/2021 Zio 3-7 days - extended continuous ambul atory case monitor 07/28/2023 Medical (General) History Medical History History ICD Code History of POTS Diagnosed by Tilt Table Test in [place]. CARDIAC HISTORY AND TESTIN-D Echo 09/2021 LVEF 60-65%, G1DD. Zio 7 day 09/2021 HR 47-157, avg 76 bpm. Sinus rhythm with rare PVC/PAC. POTS diagnosis via tilt table test in [place]. Surgical History Surgery Date(Month/Year) Hospitalization History Reason Date(Month/Year) chest pain (TIO) 07/2023 chest pain, dizziness, sob 05/2021
--- OUTSIDE RECORDS SUMMARY | 2025-06-27 23:04 | XMS_ITS | Encounter Summary ---
Author Organization [facility] Address [address] [place] [address] Care Team Providers Care Electronic Prepress Operator Name Role Phone Jeannie Mccord STRAIGHT CUTTER Primary Care Provider [phone] Encounter Details Date Type Department Care Team (Late st Contact Info) Description 02/04/2024 Springshot Message Enc [facility] Medical [facility] [place] [facility] [place] [address] [place] [address] [facility], [facility] Provider CT results Social History Tobacco Use Types Packs/Day Years Used Date Smoking Tobacco: Never Smokeless Tobacco: Never Alcohol Use Standard Drinks/Week Comments Not Currently 0 (1 standard drink = 0.6 oz pur e alcohol) PHQ-2 Answer Date Recorded Patient Health Questionnaire-2 Score 0 12/24/2023 Comments Unknown Sex and Gender Information Value Date Recorded Sex Assigned at Female 08/25/2024 3:04 PM CONTACT LENS FITTER Legal Sex Female 10:38 AM CDT Gender Identity Female 08/25/2024 3:30 PM CONTACT LENS FITTER Sexual Orientation Not on file documented as of this encounter Plan of Treatment Upcoming Encounters Date Type Department Care Team (Late st Contact Info) Description 06/28/2025 10:00 AM CONTACT LENS FITTER Office Visit [facility] Multispecialty [facility] [place] [facility] [place] [address] [place] [address] Jeannie Mccord NP [address] [facility] [address] [place] [address] 06/28/2025 10:40 AM CONTACT LENS FITTER Office Visit [facility] [address] [facility], [address] [place] [address] Ney Garrett MD [address] [place] [address] 09/27/2025 10:40 AM CDT Office Visit [facility] [address] [facility], [address] [place] [address] Ney Garrett MD [address] [place] [address] documented as of this encounter Visit Diagnoses Not on filedocumented in this encounter Additional Health Concerns Assessment Noted Time PHQ-9 Depression Total Score: 9 12/24/19 24 3:15 PM CDT documented as of this encounter Care Teams Electronic Prepress Operator Relationship Specialty Start Date End Date Jeannie Mccord, STRAIGHT CUTTER [address] [place] [address] PCP - General NURSE PRACTITIONER 12/24/23 documented as of this encounter
--- OUTSIDE RECORDS SUMMARY | 2025-06-27 23:04 | XMS_ITS | Patient Health Record ---
Author Organization [facility] Address [address] [place] [address] Care Team Providers Care Inspector Eyeglass Name Role Phone LEANDRA BEYER Unavailable [phone] Allergies No Known Allergies Reason For Referral No Information Medications Medication SIG (Take, Route, Frequency, Duration) Notes Start Date End Date Status hydrOXYzine HCl 50 MG Tablet 1 tablet 30 minutes before bedtime as needed Orally Once a day; Duration: 30 day(s) 02/04/2022 Active Propranolol HCl 40 MG Tablet 1 tablet Orally Once a day Active Social History Section Notes: Vape Vape Plan Of Treatment No Information Insurance Providers Payer Name Payer Address Payer Phone Subscriber Number Group Number Insured Name Patient Relationship to Insured Coverage Start Date Coverage End Date [facility] [address] [place] [phone] [id number] BRANDY RAMACHANDRAN Self - patient is the insured
--- OUTSIDE RECORDS SUMMARY | 2025-06-27 23:04 | XMS_ITS | Encounter Summary ---
Author Organization [facility] Address [address] [place] [address] Care Team Providers Care Certification Officer Name Role Phone Jeannie Mccord NP Primary Care Provider [phone] Encounter Details Date Type Department Care Team (Late st Contact Info) Description 03/06/2024 [employer] Message Enc [facility] Mult[facility]ty [facility] - [place] [address] [place], [place] [id number] Jeannie Mccord, ECHOMETER ENGINEER [address] [place], [place] [id number] New Medication Social History Tobacco Use Types Packs/Day Years Used Date Smoking Tobacco: Never Smokeless Tobacco: Never Alcohol Use Standard Drinks/Week Comments Not Currently 0 (1 standard drink = 0.6 oz pur e alcohol) PHQ-2 Answer Date Recorded Patient Health Questionnaire-2 Score 0 12/24/2023 Comments No Sex and Gender Information Value Date Recorded Sex Assigned at Female 08/25/2024 3:04 PM SERGEANT OF OFFICERS Legal Sex Female 10:38 AM CDT Gender Identity Female 08/25/2024 3:30 PM SERGEANT OF OFFICERS Sexual Orientation Not on file documented as [...] st Contact Info) Description 06/28/2025 10:00 AM SERGEANT OF OFFICERS [facility] [place] [address] [place] [address] Jeannie Mccord, SINA [address] [place] [address] 06/28/2025 10:40 AM SERGEANT OF OFFICERS Office Visit [facility] [address] [facility], [address] [place] [address] Ney Garrett MD [address] [place] [address] 09/27/2025 10:40 AM CDT Office Visit [facility] [address] [facility], [address] [place] [address] Ney Garrett MD [address] [place] [address] documented as of this encounter Visit Diagnoses Not on filedocumented in this encounter Additional Health Concerns Assessment Noted Time PHQ-9 Depression Total Score: 9 12/23/ 24 3:15 PM CDT documented as of this encounter Care Teams Certification Officer Relationship Specialty Start Date End Date Jeannie Mccord NP [address] [place] [address] PCP - General NURSE PRACTITIONER 12/24/23 documented as of this encounter
--- OUTSIDE RECORDS SUMMARY | 2025-06-27 23:04 | XMS_ITS | Encounter Summary ---
Author Organization [facility] Address [address] [place] [address] Care Team Providers Care File Clerk Data Entry Name Role Phone Jeannie Mccord SOFTWARE SECURITY CONSULTANT Primary Care Provider [phone] Encounter Details Date Type Department Care Team (Late st Contact Info) Description 01/14/2024 382 Communicationshart Message Enc [facility] [place] [address] [place] [address] Jeannie Mccord, SOFTWARE SECURITY CONSULTANT [address] [place] [address] Jocelyne Social History Tobacco Use Types Packs/Day Years Used Date Smoking Tobacco: Never Smokeless Tobacco: Never Alcohol Use Standard Drinks/Week Comments Not Currently 0 (1 standard drink = 0.6 oz pur e alcohol) PHQ-2 Answer Date Recorded Patient Health Questionnaire-2 Score 0 12/24/2023 Comments Unknown Sex and Gender Information Value Date Recorded Sex Assigned at Female 08/25/2024 3:04 PM PLUMBING INSTALLER Legal Sex Female 10:38 AM CDT Gender Identity Female 08/25/2024 3:30 PM PLUMBING INSTALLER Sexual Orientation Not on file documented as of this encounter Plan of Treatment Upcoming Encounters Date Type Department Care Team (Late st Contact Info) Description 06/28/2025 10:00 AM PLUMBING INSTALLER [facility] [place] [address] [place] [address] Jeannie Mccord, SINA [address] [place] [address] 06/28/2025 10:40 AM PLUMBING INSTALLER Office Visit [address], [address] [place] [address] Ney Garrett MD [address] [place] [address] 09/27/2025 10:40 AM CDT Office Visit [facility] - [address], [address] [place] [address] Ney Garrett MD [address] [place] [address] documented as of this encounter Visit Diagnoses Not on filedocumented in this encounter Additional Health Concerns Assessment Noted Time PHQ-9 Depression Total Score: 9 12/24/19 24 3:15 PM CDT documented as of this encounter Care Teams File Clerk Data Entry Relationship Specialty Start Date End Date Jeannie Mccord SOFTWARE SECURITY CONSULTANT [address] [place] [address] PCP - General NURSE PRACTITIONER 12/24/23 documented as of this encounter
--- OUTSIDE RECORDS SUMMARY | 2025-06-27 23:04 | XMS_ITS | Encounter Summary ---
Author Organization [facility] Address [address] [place] [address] Care Team Providers Care Environmental Services Project Manager Name Role Phone Jeannie Mccord NP Primary Care Provider [phone] Encounter Details Date Type Department Care Team (Latest Contact Info) Description 01/03/2025 Clavisterhart Message Enc [facility] [address] [facility], [address] [place] [phone] Ney Garrett MD [address] [place] [address] Accommodation form for work Social History Tobacco Use Types Packs/Day Years Used Date Smoking Tobacco: Never Smokeless Tobacco: Never Alcohol Use Standard Drinks/Week Comments Not Currently 0 (1 standard drink = 0.6 oz pur e alcohol) PHQ-2 Answer Date Recorded Patient Health Questionnaire-2 Score 0 08/10/2024 Comments No Sex and Gender Information Value Date Recorded Sex Assigned at Female 08/25/2024 3:04 PM PIANO SOUNDING BOARD MATCHER Legal Sex Female 10:38 AM CDT Gender Identity Female 08/25/2024 3:30 PM PIANO SOUNDING BOARD MATCHER Sexual Orientation Not on file documented as of this encounter Plan of Treatment Upcoming Encounters Date Type Department Care Team (Late Contact Info) Description 06/28/2025 10:00 AM PIANO SOUNDING BOARD MATCHER Office Visit [facility] - [address] [place] [address] Jeannie Mccord NP [address] [facility] [address] [place] [address] 06/28/2025 10:40 AM PIANO SOUNDING BOARD MATCHER Office Visit [facility] [address] [facility], [address] [place] [phone] Ney Garrett MD [address] [place] [address] 09/27/2025 10:40 AM CDT Office Visit [facility] [address] [facility], [address] [place] [address] Ney Garrett MD [address] [place] [address] documented as of this encounter Visit Diagnoses Not on filedocumented in this encounter Additional Health Concerns Assessment Noted Time PHQ-9 Depression Total Score: 9 12/24/19 24 3:15 PM CDT documented as of this encounter Care Teams Environmental Services Project Manager Relationship Specialty Start Date End Date Jeannie Mccord AUTOMOTIVE TIRE WORKER [address] [facility] [address] [place] [address] PCP - General NURSE PRACTITIONER 12/24/23 documented as of this encounter
--- OUTSIDE RECORDS SUMMARY | 2025-06-27 23:05 | XMS_ITS | Patient Health Record ---
Author Organization [facility] Address [address] [address] Care Team Providers Care Literacy Specialist Name Role Phone Jeff Parker [phone] Allergies Allergen (clinical drug ingredient) Drug/Non Drug Allergy documented on EMR Reaction Allergy Type Onset Date Status sumatriptan SUMAtriptan Unknown Drug Allergy Act dinorah Reason For Referral No Information Medications Medication SIG (Take, Route, Frequency, Duration) Notes Start Date End Date Status Gabapentin 300 MG Capsule 1 capsule Oral ly 4 times per day; Duration: 30 day(s) 10/04/2023 Active Immunizations Vaccine Route Administration Date Status Comme nts INFLUENZA Unknown 10/04/2023 Refused Pneumococcal Vaccine Unknown 10/04/2023 Refused Social History Tobacco Use: Social History Observation Description Date Details (start date - stop date) Current Smoker NA - NA Social History Social History Social Info Question Answer Notes Did you ever smoke? 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 Problem COVID-19 (548746432) COVID-19 (U07.1) Active confirmed Problem Postural orthostatic tachycardia syndrome (disorder) (394153120) Postural orthostatic tachycardia syndrome [POTS] (G90.A) Active confirmed Plan Of Treatment No Information Insurance Providers Payer Name Payer Address Payer Phone Subscriber Number Group Number Insured Name Patient Relationship to Insured Coverage Start Date Coverage End Date [facility] [address] [address] [place], [place] [id number] Celestina Alvarez Self - patient is the insured Medical (General) History Medical History History ICD Code POTS after Covid 2020. ( say s had Covid times). Has had only the first two vaccines. Asthma diagnosed when very young Surgical History Surgery Date(Month/Year)
--- OUTSIDE RECORDS SUMMARY | 2025-06-27 23:05 | XMS_ITS | Clinical Summary ---
Author Organization [facility] Address [facility] [place] [address] Care Team Providers Care [employer] Name Role Phone Jeannie Mccord NP Primary Care Provider [phone] Allergies Active Allergy Reactions Criticality Noted Date Comments Sumatriptan Throat swelling High 12/24/2023 Medications valACYclovir (VALTREX) 1 g tabletIndications :Cold sore Take 1 tablet (1,000 mg total) by mouth 2 (two) times daily. 5 tablet 06/23/20 24 Active atogepant (QULIPTA) tabletIndications :Migraine without aura and without status migrainosus, not intractable Take 1 tablet (60 mg total) by mouth daily. 30 tablet 11 05/07/20 25 Active progesterone (PROMETRIUM) 200 MG capsule Take 1 capsule (200 mg total) by mouth nightly. 05/21/20 25 Active hydrOXYzine (ATARAX) 25 MG tabletIndications :Panic attack,KATYA (generalized anxiety disorder) Take 1/2 to 1 tab by mouth 3 times daily as needed for anxiety. 60 tablet 1 05/26/20 25 Active DULoxetine (CYMBALTA) 60 MG capsuleIndication s:Panic attack,KATYA (generalized anxiety disorder) TAKE 1 CAPSULE BY MOUTH NIGHTLY. 90 capsule 2 05/30/20 25 Active ARIPiprazole (ABILIFY) 2 MG tabletIndications :Recurrent major depressive disorder, in partial remission TAKE 1 TABLET BY MOUTH EVERY DAY NIGHTLY 90 tablet 1 05/30/20 25 Active ondansetron (ZOFRAN-ODT) 8 MG disintegrating tabletIndications :Nausea Take 1 tablet (8 mg total) by mouth every 8 (eight) hours as needed for Nausea. 20 tablet 06/11/20 Active ARIPiprazole (ABILIFY) 2 MG tabletIndications :Recurrent major depressive disorder, in partial remission Take 1 tablet (2 mg total) by mouth nightly. 30 tablet 2 05/07/20 25 025 Discontinued DULoxetine (CYMBALTA) 60 MG capsuleIndication s:Panic attack,KATYA (generalized anxiety disorder) Take 1 capsule (60 mg total) by mouth nightly. 90 capsule 1 05/07/20 25 025 Discontinued ondansetron (ZOFRAN-ODT) 8 MG disintegrating tabletIndications :Nausea Take 1 tablet (8 mg total) by mouth every 8 (eight) hours as needed for Nausea. 20 tablet 05/26/20 25 025 Discontinued(Re order) Active Problems Problem Noted Date Diagnosed Date Genital herpes simplex, unspecified site 025 COVID-19 long hauler 08/10/2024 Migraine without aura, not i ntractable, without status migrainosus 06/15/2024 Left-sided chest wall pain 03/03/2024 Attention deficit hyperactiv ity disorder (ADHD), combined type 01/12/2024 Arthralgia, unspecified joint 01/12/2024 POTS (postural orthostatic tachycardia syndrome) 12/24/2023 Chronic diarrhea 12/24/2023 Nausea and vomiting, unspecified vomiting type 0 12/24/2023 Myalgia 12/24/2023 Abnormal serum iron level 12/24/2023 Vitamin D deficiency 12/24/2023 History of lung surgery 12/24/2023 Abnormal uterine bleeding 08/03/2023 Gastritis 08/03/2023 Insomnia 08/03/2023 Resolved Problems Problem Noted Date Diagnosed Date Resolved Date Migraines 08/10/2024 05/21/2025 Bug bite, initial encounter 03/03/2024 05/21/2025 Migraine without aura and wi thout status migrainosus, not intractable 12/24/2023 05/21/2025 Encounters Date Type Department Care Team Description 05/22/2025 Therapy Plan [facility] Multispecialty Care - [address], [address] [place] [address] Ney Garrett MD 05/21/2025 10:00 AM RESOURCE ANALYST [facility] [place] [address] [place] [address] Jeannie Mccord, POUNCING LATHE OPERATOR Forms 05/21/2025 Scan HEALTH INFO SRVCS Scanned, Doc [facility] 05/21/2025 - 05/21/2025 11:59 PM RESOURCE ANALYST Hospital Encounter [facility] [address] [place] [address] Jeannie Mccord, POUNCING LATHE OPERATOR Discharge Disposition: Home or Self Care (Routine Discharge) 05/21/2025 Results Follow-Up [address] [place] [address] Jeannie Mccord, SINA HCG QUANT (SERUM)-CHORIONIC GONADOTROPIN 05/21/2025 Telephone [facility] - [address] [place] [phone] Ney Garrett MD Medication 05/21/2025 Travel 05/14/2025 MyChart Message [facility] - [address] [place] [address] Jeannie Mccord, SINA Migraine Meds 05/09/2025 [facility] - [address] [place] [address] Jeannie Mccord, POUNCING LATHE OPERATOR ANTINUCLEAR ANTIBODY WI RFX (DARLENE), FERRITIN, TRANSFERRIN, Additional followed-up results: 6 05/07/2025 8:40 AM CDT Office Visit [address] [place] [address] Jeannie Mccord, POUNCING LATHE OPERATOR Medication Check 05/07/2025 - 05/07/2025 11:59 PM CDT Hospital Encounter [facility] [address] [place] [address] Jeannie Mccord, POUNCING LATHE OPERATOR Discharge Disposition: Home or Self Care (Routine Discharge) 05/07/2025 Travel 04/26/2025 Telephone [facility] - [address] [place] [address] Jeannie Mccord, POUNCING LATHE OPERATOR Reschedule 03/29/2025 12:20 PM CDT [facility] [place] [address] [address] [place] [address] Jeannie Mccord, POUNCING LATHE OPERATOR Medication Check ; Anxiety 03/29/2025 10:40 AM CDT [facility] - [address], [address] [place] [phone] Ney Garrett MD Botox Procedure (Chronic migraine) 03/29/2025 Scan HEALTH INFO SRVCS Scanned, Doc Med [facility] 03/29/2025 Travel from Last 3 Months Immunizations Immunization Administration Dates Next Due HPV 07/12/2014 HPV GARDASIL 9-VALENT 02/09/2014 Family History Medical History Relation Comments Alcohol Abuse Father Asthma Father Arthritis Mother Depression Mother Mental Health Mother Miscarriages / Stillbirths Sister Relation Status Comments Father Mother Sister Social History Tobacco Use Types Packs/Day Years Used Date Smoking Tobacco: Never Smokeless Tobacco: Never Tobacco Cessation:Counseling Given: No Alcohol Use Standard Drinks/Week Comments Not Currently 0 (1 standard drink = 0.6 oz pur e alcohol) PHQ-2 Answer Date Recorded Patient Health Questionnaire-2 Score 6 05/07/2025 Comments No Sex and Gender Information Value Date Recorded Sex Assigned at Female 08/25/2024 3:04 PM RESOURCE ANALYST Legal Sex Female 10:38 AM CDT Gender Identity Female 08/25/2024 3:30 PM RESOURCE ANALYST Sexual Orientation Not on file Last Filed Vital Signs Vital Sign Reading Time Taken Comments Blood Pressure 123/83 05/21/2025 10:06 AM RESOURCE ANALYST Pulse 114 05/21/2025 10:06 AM RESOURCE ANALYST Temperature 36.4 C (97.6 F) 05/21/2025 10:06 AM RESOURCE ANALYST Respiratory Rate 16 05/21/2025 10:06 AM RESOURCE ANALYST Oxygen Saturation 100% 05/21/2025 10:06 AM RESOURCE ANALYST Inhaled Oxygen Concentration - - Weight 58.7 kg (129 lb 6.4 oz) 05/21/2025 10:06 AM RESOURCE ANALYST Height 157.5 cm (5' 2) 05/21/2025 10:06 AM RESOURCE ANALYST Body Mass Index 23.67 05/21/2025 10:06 AM RESOURCE ANALYST Plan of Treatment Upcoming Encounters Date Type Department Care Team (Late st Contact Info) Description 06/28/2025 10:00 AM RESOURCE ANALYST [facility] [place] [address] [place] [address] Jeannie Mccord POUNCING LATHE OPERATOR [address] [place] [address] 06/28/2025 10:40 AM RESOURCE ANALYST [facility] [address] [facility], [address] [place] [phone] Ney Garrett MD [address] [place] [address] 09/27/2025 10:40 AM CDT [facility] [address] [facility], [address] [place] [phone] Ney Garrett MD [address] [place] [address] Health Maintenance Due Date Last Done Comments [...] 3-dose series) 2020 COVID-19 Vaccine (1 - 2024-2 6 season) 2026 Postponed from 03/12 (Patient Refused) Influenza Adult (#1) 2026 Postpon ed from 04/11/2025 (Patient Refused) HPV Vaccines Completed 07/12/2014, 02/09/2014 Hepatitis C Completed 01/27/2024, 08/13/2023 PHQ-2 (Physician Blandon) Completed 05/07/2025 Hepatitis A Vaccines Aged Out No long er eligible based on patient's age to complete this topic Meningococcal Vaccine Aged Out No susannah da eligible based on patient's age to complete this topic Pneumococcal Vaccine: Pediatrics (0 to 5 Years) and At-Risk Patients (6 to 49 Years) Aged Out No longer eligible b ased on patient's age to complete this topic RSV Immunizations Under 20 Months Aged Out No longer eligible b ased on patient's age to complete this topic Procedures Procedure Name Priority Date/Time Associated Diagnosis Comments HCG QUANT (SERUM)-CHORIONIC GONADOTROPIN Routine 05/21/2025 10:38 AM RESOURCE ANALYST Positive test ([facility]) History of miscarriage GENERAL HEALTH PANEL Routine 05/07/2025 9:42 AM CDT Routine general medical examination at a health care facility COMPREHENSIVE METABOLIC PANEL Routine 05/07/2025 9:42 AM CDT Routine general medical examination at a health care facility TSH W/REFLEX Routine 05/07/2025 9:42 AM CDT Routine general medical examination at a health care facility VITAMIN D, 25 [place] Routine 05/07/2025 9:42 AM CDT Myalgia COSMETOLOGY PROFESSOR ANTIBODY Routine 05/07/2025 9:42 AM CDT Myalgia IRON SAT PANEL (IRON,IBC,%SAT) Routine 05/07/2025 9:42 AM CDT Restless leg syndrome HC TRANSFERRIN Routine 05/07/2025 9:42 AM CDT Restless leg syndrome HC FERRITIN Routine 05/07/2025 9:42 AM CDT Restless leg syndrome HC DARLENE SCREEN Routine 05/07/2025 9:42 AM CDT Myalgia HEP C SCANNED ORDERS Routine 08/13/2023 from Last 3 Months or Most Recently Relevant to Health Maintenance Results * HCG QUANT (SERUM)-CHORIONIC GONADOTROPIN (05/21/2025 10:38 AM RESOURCE ANALYST) Pathologist [facility] HCG QUANTITATIVE 513 MIU/ML 05/21/20 5:40 PM RESOURCE ANALYST [facility] Comment: <5 IS NEGATIVE 5-25 IS BORDERLINE >25 IS POSITIVE ASSAY PERFORMED BY CHEMILUMINESCENCE METHODOLOGY USING SIEMENS DIM[employer] [place]IST[place] REAGENT. PATIENT RESULTS DETERMINED BY ASSAYS USING DIFFERENT MANUFACTURERS FOR METHODS MAY NOT BE COMPARABLE. BLOOD VENOUS BLOOD SPECIMEN / Unknown 05/21/2025 10:38 AM RESOURCE ANALYST Jeannie Mccord NP LABORATORY Final Resul t [facility] [address] [place] [phone], [id number] * COSMETOLOGY PROFESSOR ANTIBODY (05/07/2025 9:42 AM CDT) Pathologist [facility] COSMETOLOGY PROFESSOR (U1) AB S/P/B 1.2 0.0 - 4.9 U/mL 05/09/2025 11:49 AM CDT [facility] Comment: NEGATIVE: <5 U/mL EQUIVOCAL: 5 to 10 U/mL POSITIVE: >10 U/mL AUTOANTIBODIES TO COSMETOLOGY PROFESSOR ARE FOUND IN GREATER THAN 95% OF PATIENTS WITH MIXED CONNECTIVE TISSUE DISEASE (MCTD), BUT ARE ALSO SEEN IN SYSTEMIC LUPUS ERYTHEMATOUS (40%), RHEUMATOID ARTHRITIS (10%), SCLERODERMA SYNDROME (10%), AND RARELY IN DRUG INDUCED LUPUS AND SJOGREN'S SYNDROME. ABSENCE OF COSMETOLOGY PROFESSOR ANTIBODIES USUALLY RULES OUT MCTD. 05/07/2025 9:42 AM CDT Jeannie Mccord NP LABORATORY Final Resul t [facility] [address] [place] [address], [place] [phone] * TSH W/REFLEX (05/07/2025 9:42 AM CDT) TSH 0.530 0.358 - 3.740 uIU/ML 05/07/2025 4:40 PM CDT [facility] 05/07/2025 9:42 AM CDT Jeannie Mccord NP LABORATORY Final Resul t Performing Organization Address [facility] Co de Phone Number [facility] [address] [place] [address], * ANTINUCLEAR ANTIBODY WI RFX (DARLENE) (05/07/2025 9:42 AM CDT) DARLENE <0.09 05/09/2025 11:49 AM CDT [facility] Comment: NEGATIVE: <0.7 RATIO DARLENE PROFILE AND TITER NOT PERFORMED THE DARLENE SCREEN TESTS FOR THE FOLLOWING ANTIBODIES BY EIA: SSA1 (RO), SSB1 (LA), FRAZIER, SCL70, JO1, CENTROMERE, COSMETOLOGY PROFESSOR HISTONE MUST BE ORDERED SEPARATELY DNA (DS) ANTIBODY <0.6 IU/ML 025 11:49 AM CDT [facility] Comment: NEGATIVE: <10 IU/mL EQUIVOCAL: 10 to 15 IU/mL POSITIVE: >15 IU/mL THIS QUANTITATIVE ASSAY IS CALIBRATED TO THE [employer]'S WO/80 STANDARD. THE LEVEL OF dsDNA AUTOANTIBODY GERERALLY CORRELATES WITH THE LEVEL OF DISEASE ACTIVITY IN SYSTEMIC LUPUS ERYTHMATOSUS 05/07/2025 9:42 AM CDT us Jeannie Mccord NP LABORATORY Final Resul t Performing Organization Address [facility] Co de Phone Number [facility] [address] [place] [address], [place] [phone] * (ABNORMAL) IRON SAT PANEL (IRON,IBC,%SAT) (05/07/2025 9:42 AM CDT) IRON 46(L) 50 - 170 MCG/DL 05/07/2025 4:40 PM CDT [facility] IRON BINDING CAPACITY 299 250 - 450 MCG/DL 05/07/2025 4:40 PM CDT [facility] IRON SATURATION 15 % 4:40 PM CDT [facility] Comment:REFERENCE RANGE NOT ESTABLISHED 05/07/2025 9:42 AM CDT us Jeannie Mccord NP LABORATORY Final Resul t Performing Organization Address [facility] de Phone Number [facility] [address] [place] [address], [place] [phone] * TRANSFERRIN (05/07/2025 9:42 AM CDT) TRANSFERRIN 250 200 - 360 mg/dL 05/07/2025 5:58 PM CDT [facility] 05/07/2025 9:42 AM CDT us Jeannie Mccord NP LABORATORY Final Resul t Performing Organization Address [facility] Co de Phone Number [facility] [address] [place] [address], [place] [phone] * (ABNORMAL) COMPREHENSIVE METABOLIC PANEL (05/07/2025 9:42 AM CDT) [facility] SODIUM S/P/B 141 136 - 145 MMOL/L 05/07/2025 4:40 PM CDT [facility] POTASSIUM S/P/B 4.4 3.5 - 5.1 MMOL/L 05/07/2025 4:40 PM CDT [facility] CHLORIDE S/P/B 104 98 - 107 MMOL/L 05/07/2025 4:40 PM CDT [facility] CO2 27.8 21 - 32 MMOL/L 05/07/2025 4:40 PM T [facility] GLUCOSE 98 70 - 99 MG/DL 05/07/2025 4:40 PM CDT [facility] BUN 5(L) 7 - 18 MG/DL 05/07/2025 4:40 PM T [facility] CREATININE S/P/B 0.57 0.55 - 1.02 MG/DL 05/07/2025 4:40 PM CDT [facility] CALCIUM S/P/B 9.6 8.4 - 10.5 MG/DL 05/07/2025 4:40 PM CDT [facility] BILIRUBIN TOTAL S/P/B 0.3 0.2 - 1.0 MG/DL 05/07/2025 4:40 PM CDT [facility] ALKALINE PHOSPHATASE S/P/B 85 52 - 144 U/L 05/07/2025 4:40 PM CDT [facility] AST 14(L) 15 - 37 U/L 05/07/2025 4:40 PM CDT [facility] ALT 17 14 - 59 U/L 05/07/2025 4:40 PM CDT [facility] TOTAL PROTEIN S/P/B 7.7 6.4 - 8.2 G/DL 05/07/2025 4:40 PM CDT [facility] ALBUMIN S/P/B 4.1 3.4 - 5.0 G/DL 05/07/2025 4:40 PM CDT [facility] ANION GAP 9.2 5 - 15 MMOL/L 05/07/2025 4:40 PM CDT [facility] Comment:REFERENCE RANGE NOT ESTABLISHED OSMOLALITY (CALC) 289 MOSM/KG 025 4:40 PM CDT [facility] Comment:REFERENCE RANGE NOT ESTABLISHED GFR ESTIMATE >90 >90 ML/MIN/1. 73 M2 05/07/2025 4:40 PM CDT [facility] GFR NOTES GFR REFERENCE S: 05/07/2025 4:40 PM T [facility] Comment: THE ESTIMATED GFR IS CALCULATED USING THE 2020 CKD-EPI EQUATION. THE FOLLOWING CATEGORIES FOR GRADING RENAL FUNCTION ARE RECOMMENDED BY THE INTERNATIONAL SOCIETY OF NEPHROLOGY (KDIGO 2012 CLINICAL PRACTICE GUIDELINE). G1,NORMAL OR HIGH: >89 ml/min/1.73 m2 G2,MILDLY DECREASED: 60-89 ml/min/1.73 m2 G3A,MILDLY TO MODERATELY DECREASED: 45-59 ml/min/1.73 m2 G3B,MODERATELY TO SEVERELY DECREASED: 30-44 ml/min/1.73 m2 G4,SEVERELY DECREASED: 15-29 ml/min/1.73 m2 G5,KIDNEY FAILURE: <15 ml/min/1.73 m2 05/07/2025 9:42 AM CDT us Jeannie Mccord NP LABORATORY Final Resul t [facility] [address] [place] [address], * (ABNORMAL) CBC W/DIFF AUTOMATED (05/07/2025 9:42 AM CDT) WBC 8.59 4.00 - 10.80 x10'3/uL 05/07/2025 3:23 PM CDT [facility] RBC 4.56 4.10 - 5.40 x10'6/uL 05/07/2025 3:23 PM CDT [facility] HGB 13.9 12.0 - 16.0 G/DL 05/07/2025 3:23 PM CDT [facility] HCT 41.3 36.0 - 47.0 % 05/07/2025 3:23 PM CDT [facility] MCV 90.6 78.0 - 100.0 FL 05/07/2025 3:23 PM CDT [facility] MCH 30.5 27.0 - 31.0 PG 05/07/2025 3:23 PM CDT [facility] MCHC 33.7 33.0 - 36.0 G/DL 05/07/2025 3:23 PM CDT [facility] RDW 11.8 11.5 - 14.5 % 05/07/2025 3:23 PM CDT [facility] PLT 280 150 - 350 x10'3/uL 05/07/2025 3:23 PM CDT [facility] MPV 11.7(H) 7.4 - 10.4 FL 05/07/2025 3:23 PM CDT [facility] DIFFERENTIAL TYPE AUTOMATED DIFFERENTIAL 05/07/2025 3:23 PM CDT [facility] NEUTROPHILS % 64.3 % 05/07/2025 3:23 PM CDT [facility] LYMPHOCYTES % 22.1 % 05/07/2025 3:23 PM CDT [facility] MONOCYTES % 8.0 % 05/07/2025 3:23 PM CDT [facility] EOSINOPHILS % 4.7 % 05/07/2025 3:23 PM CDT [facility] BASOPHILS % 0.6 % 05/07/2025 3:23 PM CDT [facility] IMMATURE GRANS % 0.3 % 05/07/2025 3:23 PM CDT [facility] ABS. NEUTROPHILS 5.52 1.60 - 8.30 x10'3/uL 05/07/2025 3:23 PM CDT [facility] ABS. LYMPHOCYTES 1.90 0.80 - 4.70 x10'3/uL 05/07/2025 3:23 PM CDT [facility] ABS. MONOCYTES 0.69 0.00 - 1.50 x10'3/uL 05/07/2025 3:23 PM CDT [facility] ABS. EOSINOPHILS 0.40 0.00 - 0.40 x10'3/uL 05/07/2025 3:23 PM CDT [facility] ABS. BASOPHILS 0.05 0.00 - 0.20 x10'3/uL 05/07/2025 3:23 PM CDT [facility] ABS. IMMATURE GRANULOCYTES 0.03 0.00 - 0.03 x10'3/uL 05/07/2025 3:23 PM CDT [facility] 05/07/2025 9:42 AM CDT Jeannie Mccord NP LABORATORY Final Resul t Performing Organization Address [facility] Co de Phone Number [facility] [address] [place] [address], * VITAMIN D, 25 [place] (05/07/2025 9:42 AM CDT) Pathologist [facility] VITAMIN D 25 HYDROXY TOTAL S/P/B 41.7 30 - 100 NG/ML 05/07/2025 4:40 PM CDT [facility] Comment: DEFICIENT <20 INSUFFICIENT 20-30 SUFFICIENT 30-100 05/07/2025 9:42 AM CDT Jeannie Mccord NP LABORATORY Final Resul t [facility] [address] [place] [address], [place] [phone] * FERRITIN (05/07/2025 9:42 AM CDT) FERRITIN 26.0 8.0 - 252.0 NG/ML 05/07/2025 5:59 PM CDT [facility] 05/07/2025 9:42 AM CDT us Jeannie Mccord POUNCING LATHE OPERATOR LABORATORY Final Resul t [facility] [address] [place] [address], [place] [phone] * HEP C SCANNED ORDERS (08/13/2023) us [facility] Scanned SCANNING Final Resu lt [facility] ONBASE from Last 3 Months or Most Recently Relevant to Health Maintenance Insurance [facility] Care Teams [employer] Hands Relationship Specialty Start Date End Date Jeannie Mccodr POUNCING LATHE OPERATOR [address] [facility] [address] [place] [address] PCP - General NURSE PRACTITIONER 12/24/23
--- OUTSIDE RECORDS SUMMARY | 2025-06-27 23:05 | XMS_ITS ---
Author Name Interface, [id number] lity Address [place] [address] Organization [facility] Address [place] [address] Allergies and Adverse Reactions Medication/Group Name Reaction Severity Date Caplyta 11/10/2023 sumatriptan 11/10/2023 Plan Date Type Value 11/12/2023 APPOINTMENT 186-pos op f/u 11/10/2023 APPOINTMENT 1865-pos op f/u 11/10/2023 LAB_ORDER Chest x-ray, PA and lateral Reason for Visit 1864-pos op f/u Encounters Date Name 11/10/2023 Pulmonary sequestrat ion Medications Date Name Route Dose Frequency Instructions Start Date End Date Status Fill Status Indication 10/12 Ondanse saúl Oral PO 1.0 tablet As needed for nausea active 10/12 Loratad ine Oral Disinte grating Tablet PO As needed active 10/12 Gabapen tin Oral PO 1.0 capsul e QID 4 times a day as needed active 10/12 Choleca lcifero l Oral PO active 10/12 Bupropi on (XL) Oral 24 hr Tab PO 1.0 tablet extend ed releas e 24 hr Daily active 11/10 ondanse saúl 4 MG Oral Tablet orally 1.0 tablet every 4 hours 2023 active Pulmonary sequestratio n 11/09 acetami nophen 325 MG / hydroco done bitartr ate 10 MG Oral Tablet orally 1.0 tab every 8 hours 2023 active Pulmonary sequestratio n Problems Diagnosis Status Date of Diagnosis Resolution Date Pulmonary sequestration Active Vital Signs Date Type Value 11/10/2023 Body Temperature 97.30 11/10/2023 Heart Beat 82.00 11/10/2023 Respiratory Rate 18.00 11/10/2023 Weight 134.00 11/10/2023 Intravascular Systolic 107 11/10/2023 Intravascular Diastolic 70 11/10/2023 Pain Scale 5.00 11/10/2023 Oxygen Saturation 100.00 Notes Section * [facility] - Thoracic Surgery Follow Up [facility] [address] [place] [address] P: [phone] F: [phone] THORACIC SURGERY FOLLOW UP NOTE PATIENT:??BRANDY RAMACHANDRAN :??2000 Date of Service:??11/10/[address] 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 ??CTA of the chest was done and she was diagnosed with pericarditis. ??She was treated with colchicine, NSAIDs, and steroids without improvement in her symptoms. ??She again presented in 09/2023 to an [id number] and CT angio coronaries was performed [...] reviewed her CT scan with radiology at [facility]. ??There is an abnormal area in the [...] pain medication and is only taking the [place] ~2 times daily. She is still taking the gabapentin and robaxin TID. She reports some occasional SOB/DARLING with activity, but not as severe as before surgery. Her pain also seems to be improved. Her just took a job in [place] and they plan to move in 2 [...] and her parents - recently moved to [place] from [place] and [place] before that She is a student at [employer] working to obtain her Bachelor's degree in [...] lower lobe 10/26/2023 , Renetta French MD [facility] Send copy of note to: Dr. Jeff Parker . Electronically signed by Renetta French MD 11/10/2023 11:48 CDT
--- OUTSIDE RECORDS SUMMARY | 2025-06-27 23:05 | XMS_ITS | Encounter Summary ---
Author Organization [facility] Address [address] [place] [address] Care Team Providers Care [employer] Name Role Phone Jeannie Mccord AWAKE OVERNIGHT COUNSELOR Primary Care Provider [phone] Encounter Details Date Type Department Care Team (Late st Contact Info) Description 06/29/2024 FullCircle Registryhart Message Enc [facility] [place] [address] [place] [address] Jeannie Mccord NP [address] [place] [address] Sore throat Social History Tobacco Use Types Packs/Day Years Used Date Smoking Tobacco: Never Smokeless Tobacco: Never Alcohol Use Standard Drinks/Week Comments Not Currently 0 (1 standard drink = 0.6 oz pur e alcohol) PHQ-2 Answer Date Recorded Patient Health Questionnaire-2 Score 0 12/24/2023 Comments No Sex and Gender Information Value Date Recorded Sex Assigned at Female 08/25/2024 3:04 PM DOZER OPERATOR Legal Sex Female 10:38 AM CDT Gender Identity Female 08/25/2024 3:30 PM DOZER OPERATOR Sexual Orientation Not on file documented as of this encounter Plan of Treatment Upcoming Encounters Date Type Department Care Team (Late st Contact Info) Description 06/28/2025 10:00 AM DOZER OPERATOR Office Visit [facility] [place] [address] [place] [address] Jeannie Mccord NP [address] [place] [address] 06/28/2025 10:40 AM DOZER OPERATOR Office Visit [facility] - [address], [address] [place] [address] Ney Garrett MD [address] [place] [address] 09/27/2025 10:40 AM CDT Office Visit [facility] - [address], [address] [place] [address] Ney Garrett MD [address] [place] [address] documented as of this encounter Visit Diagnoses Not on filedocumented in this encounter Additional Health Concerns Assessment Noted Time PHQ-9 Depression Total Score: 9 12/24/19 24 3:15 PM CDT documented as of this encounter Care Teams [employer] Relationship Specialty Start Date End Date Jeannie Mccord AWAKE OVERNIGHT COUNSELOR [address] [facility] [address] [place] [address] PCP - General NURSE PRACTITIONER 12/24/23 documented as of this encounter
--- OUTSIDE RECORDS SUMMARY | 2025-06-27 23:05 | XMS_ITS | Encounter Summary ---
Author Organization [facility] Address [address] [place] [address] Care Team Providers Care Flow Worker Name Role Phone Jeannie Mccord DISABILITY HEARING OFFICER Primary Care Provider [phone] Encounter Details Date Type Department Care Team (Latest Contact Info) Description 05/09/2025 Results Follow-Up [facility] - [place] [address] [place] [address] Jeannie Mccord, DISABILITY HEARING OFFICER [address] [facility] [address] [place] [address] ANTINUCLEAR ANTIBODY WI RFX (DARLENE), FERRITIN, TRANSFERRIN, Additional followed-up results: 6 Social History Tobacco Use Types Packs/Day Years Used Date Smoking Tobacco: Never Smokeless Tobacco: Never Alcohol Use Standard Drinks/Week Comments Not Currently 0 (1 standard drink = 0.6 oz pur e alcohol) PHQ-2 Answer Date Recorded Patient Health Questionnaire-2 Score 6 05/07/2025 Comments No Sex and Gender Information Value Date Recorded Sex Assigned at Female 08/25/2024 3:04 PM ENVIRONMENTAL PROTECTION INSPECTOR Legal Sex Female 10:38 AM CDT Gender Identity Female 08/25/2024 3:30 PM ENVIRONMENTAL PROTECTION INSPECTOR Sexual Orientation Not on file documented as of this encounter Plan of Treatment Upcoming Encounters Date Type Department Care Team ( st Contact Info) Description 06/28/2025 10:00 AM ENVIRONMENTAL PROTECTION INSPECTOR [facility] [place] [address] [place] [address] Jeannie Mccord, SINA [address] [facility] [address] [place] [address] 06/28/2025 10:40 AM ENVIRONMENTAL PROTECTION INSPECTOR Office Visit [address], [address] [place] [phone] Ney Garrett MD [address] [place] [address] 09/27/2025 10:40 AM CDT Office Visit [address], [address] [place] [address] Ney Garrett MD [address] [place] [address] documented as of this encounter Visit Diagnoses Not on filedocumented in this encounter Additional Health Concerns Assessment Noted Time PHQ-9 Depression Total Score: 20 025 9:24 AM CDT documented as of this encounter Care Teams Flow Worker Relationship Specialty Start Date End Date Jeannie Mccord DISABILITY HEARING OFFICER [address] [facility] [address] [place] [address] PCP - General NURSE PRACTITIONER 12/24/23 documented as of this encounter
--- OUTSIDE RECORDS SUMMARY | 2025-06-27 23:05 | XMS_ITS | Encounter Summary ---
Author Organization [facility] Address [address] [place] [address] Care Team Providers Care Director Treasurer Name Role Phone Jeannie Mccord INTERNAL CONTROLS MANAGER Primary Care Provider [phone] Encounter Details Date Type Department Care Team (Late st Contact Info) Description 07/07/2024 [employer]hart Message Enc [facility] Mult[facility]pecialty [facility] - [place] [address] [place] [address] Jeannie Mccord NP [address] [place] [address] Sore throat Social History Tobacco Use Types Packs/Day Years Used Date Smoking Tobacco: Never Smokeless Tobacco: Never Alcohol Use Standard Drinks/Week Comments Not Currently 0 (1 standard drink = 0.6 oz pur e alcohol) PHQ-2 Answer Date Recorded Patient Health Questionnaire-2 Score 0 12/24/2023 Comments No Sex and Gender Information Value Date Recorded Sex Assigned at Female 08/25/2024 3:04 PM INSPECTOR BALANCE WHEEL MOTION Legal Sex Female 10:38 AM CDT Gender Identity Female 08/25/2024 3:30 PM INSPECTOR BALANCE WHEEL MOTION Sexual Orientation Not on file documented as of this encounter Plan of Treatment Upcoming Encounters Date Type Department Care Team (Late st Contact Info) Description 06/28/2025 10:00 AM INSPECTOR BALANCE WHEEL MOTION Office Visit [facility] - [place] [address] [place] [address] Jeannie Mccord NP [address] [place] [address] 06/28/2025 10:40 AM INSPECTOR BALANCE WHEEL MOTION Office Visit [facility] - [address], [address] [place] [address] Ney Garrett MD 3 [place] [address] 09/27/2025 10:40 AM CDT Office Visit [facility] - [address], [address] [place] [address] Ney Garrett MD [address] [place] [address] documented as of this encounter Visit Diagnoses Not on filedocumented in this encounter Additional Health Concerns Assessment Noted Time PHQ-9 Depression Total Score: 9 12/24/19 24 3:15 PM CDT documented as of this encounter Care Teams Director Treasurer Relationship Specialty Start Date End Date Jeannie Mccord INTERNAL CONTROLS MANAGER [address] [facility] [address] [place] [address] PCP - General NURSE PRACTITIONER 12/24/23 documented as of this encounter
--- OUTSIDE RECORDS SUMMARY | 2025-06-27 23:05 | XMS_ITS | Encounter Summary ---
Author Organization [facility] Address [address] [place] [address] Care Team Providers Care Slag Skimmer Name Role Phone Jeannie Mccord NP Primary Care Provider [phone] Encounter Details Date Type Department Care Team (Latest Contact Info) Description 05/21/2025 Results Follow-Up [facility] - [place] [address] [place] [address] Jeannie Mccord NP [address] [place] [address] HCG QUANT (SERUM)-CHORIONIC GONADOTROPIN Social History Tobacco Use Types Packs/Day Years Used Date Smoking Tobacco: Never Smokeless Tobacco: Never Alcohol Use Standard Drinks/Week Comments Not Currently 0 (1 standard drink = 0.6 oz pur e alcohol) PHQ-2 Answer Date Recorded Patient Health Questionnaire-2 Score 6 05/07/2025 Comments No Sex and Gender Information Value Date Recorded Sex Assigned at Female 08/25/2024 3:04 PM POT SANDER Legal Sex Female 10:38 AM CDT Gender Identity Female 08/25/2024 3:30 PM POT SANDER Sexual Orientation Not on file documented as of this encounter Plan of Treatment Upcoming Encounters Date Type Department Care Team (Late st Contact Info) Description 06/28/2025 10:00 AM POT SANDER [facility] [place] [address] [place] [address] Jeannie Mccord, BREADMAN [address] [place] [address] 06/28/2025 10:40 AM POT SANDER Office Visit [address], [address] [place] [address] Ney Garrett MD [address] [place] [address] 09/27/2025 10:40 AM CDT Office Visit [address], [address] [place] [address] Ney Garrett MD [address] [place] [address] documented as of this encounter Visit Diagnoses Not on filedocumented in this encounter Additional Health Concerns Assessment Noted Time PHQ-9 Depression Total Score: 20 025 9:24 AM CDT documented as of this encounter Care Teams Slag Skimmer Relationship Specialty Start Date End Date Jeannie Mccord NP [address] [place] [address] PCP - General NURSE PRACTITIONER 12/24/23 documented as of this encounter
[2025-06-27 23:43] LABS: Hematocrit 39.3 % (37.0-47.0); Hemoglobin 13.9 g/dL (12.0-15.0); Immature Granulocyte Percent A 0.7 % (0-0.5); Lymphocytes Absolute Auto 2.43 K/mm3 (0.9-3.2); Mean Corpuscular HGB Conc 35.4 g/dl (32-36); Mean Corpuscular Hemoglobin 30.8 pg (26-34); Mean Corpuscular Volume 86.9 fl (80-100); Nucleated Red Blood Cells Absolute Auto 0.000 K/mm3 (0.0-0.012); Nucleated Red Blood Cells Perc 0.0 % (0.0-0.2); Platelet Count Result 300 k/mm3 (150-375); Red Blood Count 4.52 M/mm3 (4.2-5.4); White Blood Count 16.5 K/mm3 (4.5-10.0)
[2025-06-27 23:46] LABS: Add Urine Microscopic? YES; Appearance Urine Turbid (Clear); Glucose Urine UA Negative (Negative); Leukocyte Esterase Ur 1+ LEU/UL (Negative); Nitrate Urine Negative (Negative); Specific Grav Ur 1.018 (1.001-1.035)
[2025-06-28] VITALS (18 sets, daily range): BP systolic 98–133; BP diastolic 59–95; PULSE 86–121; RESP 10–20; TEMP 36.2–36.9; O2SAT 96–100; BMI 24.4
[2025-06-28 00:01] LABS: Alanine Aminotransferase 16 U/L (6-35); Albumin Level 4.5 g/dL (3.5-5.1); Alkaline Phosphatase 75 U/L (38-126); Anion Gap 11 mmol/L (4-12); Aspartate Amino Transferase 32 U/L (14-36); Bilirubin,Total 0.5 mg/dL (0.2-1.3); Blood Urea Nitrogen 8 mg/dL (7-17); Calcium 9.9 mg/dL (8.4-10.2); Carbon Dioxide 22 mmol/L (22-30); Chloride 103 mmol/L (98-107); Estimated CRCL calculation 122 ml/min; Estimated Glomerular Filt Rate > 60; Glucose 115 mg/dL (65-110); Lipase 66 U/L (23-300); Potassium 3.6 mmol/L (3.4-5.0); Sodium 136 mmol/L (137-145); Total Protein 7.8 g/dL (6.3-8.2)
--- OUTSIDE RECORDS SUMMARY | 2025-06-28 00:09 | XMS_ITS | Patient Health Record ---
Author Organization [facility] Address [address] [facility] [place] [place], [place] [id number] Care Team Providers Care Siding Applicator Name Role Phone Ruby Brown Primary Care Provider Jose Matos Unavailable [phone] Allergies Allergen (clinical drug ingredient) Drug/Non Drug [...] Risk Notes Problem Attention deficit hyperactivity disorder (827596841) Attention-deficit hyperactivity disorder, unspecified type (F90.9) Active confirmed Problem Pericarditis (disorder) (2135700) Pericarditis in diseases classified elsewhere (I32) Active confirmed Problem Cardiac arrhythmia (276289362) Other specified cardiac arrhythmias (I49.8) Active confirmed Problem Palpitations (46147725) Palpitations (R00.2) Active confirmed Problem Shortness of breath (626387690) Shortness of breath (R06.02) Active confirmed Problem Precordial pain (29080187) Precordial pain (R07.2) Active confirmed Problem Syncope and collapse (001183662) Syncope and collapse (R55) Active confirmed Problem Postural orthostatic tachycardia syndrome (disorder) (448181879) Postural orthostatic tachycardia syndrome [POTS] (G90.A) Active confirmed Plan Of Treatment Pending Test Test Name Order Date Echocardiogram 08/15/2021 EKG 08/15/2021 EKG 11/10/2022 EKG 05/04/2023 EKG 07/28/2023 EKG 08/19/2023 ETT Stress 12/16/[address] angiogram 07/28/[address] angiogram 08/19/2023 ZioPatch 08/15/2021 Zio 3-7 days - extended continuous ambul atory detective and intelligence analyst 07/28/2023 Medical (General) History Medical History History ICD Code History of POTS Diagnosed by Tilt Table Test in [place]. CARDIAC HISTORY AND TESTIN-D Echo 09/2021 LVEF 60-65%, G1DD. Zio 7 day 09/2021 HR 47-157, avg 76 bpm. Sinus rhythm with rare PVC/PAC. POTS diagnosis via tilt table test in [place]. Surgical History Surgery Date(Month/Year) Hospitalization History Reason Date(Month/Year) chest pain (TIO) 07/2023 chest pain, dizziness, sob 05/2021
--- OUTSIDE RECORDS SUMMARY | 2025-06-28 00:09 | XMS_ITS | Encounter Summary ---
Author Organization [facility] Address [address] [place] [address] Care Team Providers Care Drama Teacher Name Role Phone Jeannie Mccord CONSUMER RELATIONS COMPLAINT CLERK Primary Care Provider [phone] Encounter Details Date Type Department Care Team (Late st Contact Info) Description 01/14/2024 Bay[employer]hart Message Enc [facility] [place] [address] [place] [address] Jeannie Mccord, CONSUMER RELATIONS COMPLAINT CLERK [address] [place] [address] Jocelyne Social History Tobacco Use Types Packs/Day Years Used Date Smoking Tobacco: Never Smokeless Tobacco: Never Alcohol Use Standard Drinks/Week Comments Not Currently 0 (1 standard drink = 0.6 oz pur e alcohol) PHQ-2 Answer Date Recorded Patient Health Questionnaire-2 Score 0 12/24/2023 Comments Unknown Sex and Gender Information Value Date Recorded Sex Assigned at Female 08/25/2024 3:04 PM FIRST COOK Legal Sex Female 10:38 AM CDT Gender Identity Female 08/25/2024 3:30 PM FIRST COOK Sexual Orientation Not on file documented as of this encounter Plan of Treatment Upcoming Encounters Date Type Department Care Team (Late st Contact Info) Description 06/28/2025 10:00 AM FIRST COOK [facility] - [place] [address] [place] [address] Jeannie Mccord, SINA [address] [place] [address] 06/28/2025 10:40 AM FIRST COOK Office Visit [address], [address] [place] [address] Ney Garrett MD [address] [place] [address] 09/27/2025 10:40 AM CDT Office Visit [facility] - [address], [address] [place] [address] Ney Garrett MD [address] [place] [address] documented as of this encounter Visit Diagnoses Not on filedocumented in this encounter Additional Health Concerns Assessment Noted Time PHQ-9 Depression Total Score: 9 12/24/19 24 3:15 PM CDT documented as of this encounter Care Teams Drama Teacher Relationship Specialty Start Date End Date Jeannie Mccord CONSUMER RELATIONS COMPLAINT CLERK [address] [place] [address] PCP - General NURSE PRACTITIONER 12/24/23 documented as of this encounter
--- OUTSIDE RECORDS SUMMARY | 2025-06-28 00:09 | XMS_ITS | Encounter Summary ---
Author Organization [facility] Address [address] [place] [address] Care Team Providers Care Pop Singer Name Role Phone Jeannie Mccord ACCOUNTS PAYABLE SPECIALIST Primary Care Provider [phone] Encounter Details Date Type Department Care Team (Late st Contact Info) Description 12/24/2023 Medical Connectionshart Message Enc [facility] Mult[facility]pec[facility] Care - [place] [address] [place], [place] [address] Jeannie Mccord, ACCOUNTS PAYABLE SPECIALIST [address] [place] [address] symptoms Social History Tobacco Use Types Packs/Day Years Used Date Smoking Tobacco: Never Smokeless Tobacco: Never Alcohol Use Standard Drinks/Week Comments Not Currently 0 (1 standard drink = 0.6 oz pur e alcohol) PHQ-2 Answer Date Recorded Patient Health Questionnaire-2 Score 0 12/24/2023 Comments Unknown Sex and Gender Information Value Date Recorded Sex Assigned at Female 08/25/2024 3:04 PM SOX ANALYST Legal Sex Female 10:38 AM CDT Gender Identity Female 08/25/2024 3:30 PM SOX ANALYST Sexual Orientation Not on file documented [...] st Contact Info) Description 06/28/2025 10:00 AM SOX ANALYST Office Visit [facility] [place] [address] [place] [address] Jeannie Mccord, ACCOUNTS PAYABLE SPECIALIST [address] [facility] [address] [place] [address] 06/28/2025 10:40 AM SOX ANALYST Office Visit [facility] - [address], [address] [place] [address] Ney Garrett MD [address] [place] [address] 09/27/2025 10:40 AM CDT Office Visit [facility] [address] [facility], [address] [place] [address] Ney Garrett MD [address] [place] [address] documented as of this encounter Visit Diagnoses Not on filedocumented in this encounter Additional Health Concerns Assessment Noted Time PHQ-9 Depression Total Score: 9 12/24/19 24 3:15 PM CDT documented as of this encounter Care Teams Pop Singer Relationship Specialty Start Date End Date Jeannie Mccord, ACCOUNTS PAYABLE SPECIALIST [address] [facility] [address] [place] [address] PCP - General NURSE PRACTITIONER 12/24/23 documented as of this encounter
--- OUTSIDE RECORDS SUMMARY | 2025-06-28 00:09 | XMS_ITS | Encounter Summary ---
Author Organization [facility] Address [address] [place] [address] Care Team Providers Care Adult Basic Education Instructor Name Role Phone Jeannie Mccord COACH CLEANER Primary Care Provider [phone] Encounter Details Date Type Department Care Team (Latest Contact Info) Description 02/01/2024 ki workhart Message Enc [facility] [place] [address] [place] [address] Jeannie Mccord, SINA [address] [place] [address] X-Rays for Rheumatology Social History Tobacco Use Types Packs/Day Years Used Date Smoking Tobacco: Never Smokeless Tobacco: Never Alcohol Use Standard Drinks/Week Comments Not Currently 0 (1 standard drink = 0.6 oz pur e alcohol) PHQ-2 Answer Date Recorded Patient Health Questionnaire-2 Score 0 12/24/2023 Comments Unknown Sex and Gender Information Value Date Recorded Sex Assigned at Female 08/25/2024 3:04 PM AUDITING CONTROL CLERK Legal Sex Female 10:38 AM CDT Gender Identity Female 08/25/2024 3:30 PM AUDITING CONTROL CLERK Sexual Orientation Not on file documented as of this encounter Plan of Treatment Upcoming Encounters Date Type Department Care Team (Late st Contact Info) Description 06/28/2025 10:00 AM AUDITING CONTROL CLERK [facility] [place] [address] [place], [place] [address] Jeannie Mccord, SINA [address] [place] [address] 06/28/2025 10:40 AM AUDITING CONTROL CLERK Office Visit [address], [address] [place] [address] Ney Garrett MD [address] [place] [address] 09/27/2025 10:40 AM CDT Office Visit [facility] - [address], [address] [place] [address] Ney Garrett MD [address] [place] [address] documented as of this encounter Visit Diagnoses Not on filedocumented in this encounter Additional Health Concerns Assessment Noted Time PHQ-9 Depression Total Score: 9 12/24/19 24 3:15 PM CDT documented as of this encounter Care Teams Adult Basic Education Instructor Relationship Specialty Start Date End Date Jaennie Mccord COACH CLEANER [address] [place] [address] PCP - General NURSE PRACTITIONER 12/24/23 documented as of this encounter
--- OUTSIDE RECORDS SUMMARY | 2025-06-28 00:09 | XMS_ITS | Encounter Summary ---
Author Organization [facility] Address [address] [place] [address] Care Team Providers Care Pipe Coverer Helper Name Role Phone Jeannie Mccord HAND CANDY MOLDER Primary Care Provider [phone] Encounter Details Date Type Department Care Team (Late st Contact Info) Description 02/04/2024 [employer]ielai Communication Message Enc [facility] - [place] [address] [place] [address] [facility] Provider CT results Social History Tobacco Use Types Packs/Day Years Used Date Smoking Tobacco: Never Smokeless Tobacco: Never Alcohol Use Standard Drinks/Week Comments Not Currently 0 (1 standard drink = 0.6 oz pur e alcohol) PHQ-2 Answer Date Recorded Patient Health Questionnaire-2 Score 0 12/24/2023 Comments Unknown Sex and Gender Information Value Date Recorded Sex Assigned at Female 08/25/2024 3:04 PM IMPORT COORDINATION AND PRODUCTION HEAD Legal Sex Female 10:38 AM CDT Gender Identity Female 08/25/2024 3:30 PM IMPORT COORDINATION AND PRODUCTION HEAD Sexual Orientation Not on file documented as of this encounter Plan of Treatment Upcoming Encounters Date Type Department Care Team (Late st Contact Info) Description 06/28/2025 10:00 AM IMPORT COORDINATION AND PRODUCTION HEAD Office Visit [facility] Multispecialty [facility] - [place] [address] [place] [address] Jeannie Mccord NP [address] [facility] [address] [place] [address] 06/28/2025 10:40 AM IMPORT COORDINATION AND PRODUCTION HEAD Office Visit [facility] [address] [facility], [address] [place] [address] Ney Garrett MD [address] [place] [address] 09/27/2025 10:40 AM CDT Office Visit [facility] [address] [facility], [address] [place] [address] Ney Garrett MD [address] [place] [address] documented as of this encounter Visit Diagnoses Not on filedocumented in this encounter Additional Health Concerns Assessment Noted Time PHQ-9 Depression Total Score: 9 12/24/19 24 3:15 PM CDT documented as of this encounter Care Teams Pipe Coverer Helper Relationship Specialty Start Date End Date Jeannie Mccord, HAND CANDY MOLDER [address] [place] [address] PCP - General NURSE PRACTITIONER 12/24/23 documented as of this encounter
--- OUTSIDE RECORDS SUMMARY | 2025-06-28 00:09 | XMS_ITS | Encounter Summary ---
Author Organization [facility] Address [address] [place] [address] Care Team Providers Care Securities Analyst Name Role Phone Jeannie Mccord NP Primary Care Provider [phone] Encounter Details Date Type Department Care Team (Latest Contact Info) Description 01/03/2025 [employer]hart Message [facility] [address] [facility], [address] [place] [address] Ney Garrett MD 3 [place] [address] Accommodation form for work Social History Tobacco Use Types Packs/Day Years Used Date Smoking Tobacco: Never Smokeless Tobacco: Never Alcohol Use Standard Drinks/Week Comments Not Currently 0 (1 standard drink = 0.6 oz pur e alcohol) PHQ-2 Answer Date Recorded Patient Health Questionnaire-2 Score 0 08/10/2024 Comments No Sex and Gender Information Value Date Recorded Sex Assigned at Female 08/25/2024 3:04 PM AUDIOLOGY ASSISTANT Legal Sex Female 10:38 AM CDT Gender Identity Female 08/25/2024 3:30 PM AUDIOLOGY ASSISTANT Sexual Orientation Not on file documented as of this encounter Plan of Treatment Upcoming Encounters Date Type Department Care Team (Late Contact Info) Description 06/28/2025 10:00 AM AUDIOLOGY ASSISTANT Office Visit [facility] Multispecialty [facility] - [address] [place], [place] [id number] Jeannie Mccord NP [address] [place] [address] 06/28/2025 10:40 AM AUDIOLOGY ASSISTANT Office Visit [facility] [address] [facility], [address] [place] [phone] Ney Garrett MD [address] [place] [address] 09/27/2025 10:40 AM CDT Office Visit [facility] [address] [facility], [address] [place] [address] Ney Garrett MD [address] [place] [address] documented as of this encounter Visit Diagnoses Not on filedocumented in this encounter Additional Health Concerns Assessment Noted Time PHQ-9 Depression Total Score: 9 12/24/19 24 3:15 PM CDT documented as of this encounter Care Teams Securities Analyst Relationship Specialty Start Date End Date Jeannie Mccord PERMACULTURE DESIGNER [address] [place] [address] PCP - General NURSE PRACTITIONER 12/24/23 documented as of this encounter
--- OUTSIDE RECORDS SUMMARY | 2025-06-28 00:09 | XMS_ITS | Encounter Summary ---
Author Organization [facility] Address [address] [place] [address] Care Team Providers Care Coremaker Supervisor Name Role Phone Jeannie Mccord COMPLIANCE ENGINEER PRODUCTS Primary Care Provider [phone] Encounter Details Date Type Department Care Team (Latest Contact Info) Description 01/09/2024 Accel[employer]hart Message Enc [facility] - [place] [address] [place] [address] Jeannie Mccord, SINA [address] [place] [address] Cardiology referral & current symptoms Social History Tobacco Use Types Packs/Day Years Used Date Smoking Tobacco: Never Smokeless Tobacco: Never Alcohol Use Standard Drinks/Week Comments Not Currently 0 (1 standard drink = 0.6 oz pur e alcohol) PHQ-2 Answer Date Recorded Patient Health Questionnaire-2 Score 0 12/24/2023 Comments Unknown Sex and Gender Information Value Date Recorded Sex Assigned at Female 08/25/2024 3:04 PM AUTO BUMPER MECHANIC Legal Sex Female 10:38 AM CDT Gender Identity Female 08/25/2024 3:30 PM AUTO BUMPER MECHANIC Sexual Orientation Not on file documented as of this encounter Plan of Treatment Upcoming Encounters Date Type Department Care Team (Late st Contact Info) Description 06/28/2025 10:00 AM AUTO BUMPER MECHANIC [facility] [place] [address] [place], [place] [address] Jeannie Mccord, SINA [address] [place] [address] 06/28/2025 10:40 AM AUTO BUMPER MECHANIC Office Visit [address], [address] [place] [address] Ney Garrett MD [address] [place] [address] 09/27/2025 10:40 AM CDT Office Visit [facility] - [address], [address] [place] [address] Ney Garrett MD [address] [place] [address] documented as of this encounter Visit Diagnoses Not on filedocumented in this encounter Additional Health Concerns Assessment Noted Time PHQ-9 Depression Total Score: 9 12/24/19 24 3:15 PM CDT documented as of this encounter Care Teams Coremaker Supervisor Relationship Specialty Start Date End Date Jeannie Mccord COMPLIANCE ENGINEER PRODUCTS [address] [place] [address] PCP - General NURSE PRACTITIONER 12/24/23 documented as of this encounter
--- OUTSIDE RECORDS SUMMARY | 2025-06-28 00:10 | XMS_ITS | Patient Health Record ---
Author Organization [facility] Address [address] [place] [address] Care Team Providers Care Local Company Truck Driver Name Role Phone LEANDRA BEYER Unavailable [phone] Allergies No Known Allergies Reason For Referral [...] Insured Coverage Start Date Coverage End Date [facility] [address] [place] [id number] BRANDY RAMACHANDRAN Self - patient is the insured
--- OUTSIDE RECORDS SUMMARY | 2025-06-28 00:10 | XMS_ITS ---
Author Name Interface, [id number] lity Address [address] [address] Organization [facility] Address [address] [address] Allergies and Adverse Reactions Medication/Group Name Reaction [...] * Korb - Thoracic Surgery Follow Up [facility] [address] [place] [address] P: [phone] F: [phone] THORACIC SURGERY FOLLOW UP NOTE PATIENT:??BRANDY RAMACHANDRAN :??2000 Date of Service:??11/10/[address] 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 ??CTA of the chest was done and she was diagnosed with pericarditis. ??She was treated with colchicine, NSAIDs, and steroids without improvement in her symptoms. ??She again presented in 09/2023 to an [facility] hospital and CT angio coronaries was performed [...] reviewed her CT scan with radiology at [facility]. ??There is an abnormal area [...] pain medication and is only taking the [place] ~2 times daily. She is still taking [...] and her parents - recently moved to [place] from [place] and [place] before that She is a student at [place] [employer] working to obtain her Bachelor's degree in [...]
--- OUTSIDE RECORDS SUMMARY | 2025-06-28 00:10 | XMS_ITS | Encounter Summary ---
Author Organization [facility] Address [address] [place] [address] Care Team Providers Care Engineering Inspection Assistant Name Role Phone Jeannie Mccord MEDICAL CARE EVALUATION SPECIALIST Primary Care Provider [phone] Encounter Details Date Type Department Care Team (Late st Contact Info) Description 03/06/2024 Yvolverhart Message Enc [facility] Multispecialty Care - [place] [address] [place], [place] [id number] Jeannie Mccord, MEDICAL CARE EVALUATION SPECIALIST [address] [place] [address] New Medication Social History Tobacco Use Types Packs/Day Years Used Date Smoking Tobacco: Never Smokeless Tobacco: Never Alcohol Use Standard Drinks/Week Comments Not Currently 0 (1 standard drink = 0.6 oz pur e alcohol) PHQ-2 Answer Date Recorded Patient Health Questionnaire-2 Score 0 12/24/2023 Comments No Sex and Gender Information Value Date Recorded Sex Assigned at Female 08/25/2024 3:04 PM BOTTLING MACHINE OPERATOR Legal Sex Female 10:38 AM CDT Gender Identity Female 08/25/2024 3:30 PM BOTTLING MACHINE OPERATOR Sexual Orientation Not on file documented [...] st Contact Info) Description 06/28/2025 10:00 AM BOTTLING MACHINE OPERATOR [facility] [place] [address] [place] [address] Jeannie Mccord, SINA [address] [place] [address] 06/28/2025 10:40 AM BOTTLING MACHINE OPERATOR Office Visit [facility] [address] [facility], [address] [place] [address] Ney Garrett MD 3 [place] [address] 09/27/2025 10:40 AM CDT Office Visit [facility] [address] [facility], [address] [place] [address] Ney Garrett MD [address] [place] [address] documented as of this encounter Visit Diagnoses Not on filedocumented in this encounter Additional Health Concerns Assessment Noted Time PHQ-9 Depression Total Score: 9 12/23/ 24 3:15 PM CDT documented as of this encounter Care Teams Engineering Inspection Assistant Relationship Specialty Start Date End Date Jeannie Mccord NP [address] [place] [address] PCP - General NURSE PRACTITIONER 12/24/23 documented as of this encounter
--- OUTSIDE RECORDS SUMMARY | 2025-06-28 00:11 | XMS_ITS | CCD ---
Author Name Interface, [id number] lity Address [place] [address] Organization [facility] Address [address] [address] Allergies and Adverse Reactions Medication/Group Name Reaction Severity Date Caplyta 11/10/2023 sumatriptan 11/10/2023 Reason for Visit 1865-pos op f/u Medications Date Name Route Dose Frequency Instructions Start Date End Date Status Fill Status Indication 10/12 Gabapent in Oral PO 1.0 capsule QID 4 times a day as needed active 10/12 Loratadi ne Oral Disinteg rating Tablet PO As needed active 10/12 Bupropio n (XL) Oral 24 hr Tab PO 1.0 tablet extende d release 24 hr Daily active 10/12 Cholecal ciferol Oral PO active 10/12 Ondanset tu Oral PO 1.0 tablet As needed for nausea active Problems Diagnosis Status Date of Diagnosis Resolution Date Pulmonary sequestration Active Social History Date Name Value 10/06/2023 Sex Female
--- OUTSIDE RECORDS SUMMARY | 2025-06-28 00:11 | XMS_ITS | Encounter Summary ---
Author Organization [facility] Address [address] [place] [address] Care Team Providers Care Ground Water Pump Installer Name Role Phone Jeannie Mccord PORT CRANE OPERATOR Primary Care Provider [phone] Encounter Details Date Type Department Care Team (Late st Contact Info) Description 06/29/2024 Baremetricshart Message Enc [facility] Multispecialty Care - [place] [address] [place] [address] Jeannie Mccord NP [address] [place] [address] Sore throat Social History Tobacco Use Types Packs/Day Years Used Date Smoking Tobacco: Never Smokeless Tobacco: Never Alcohol Use Standard Drinks/Week Comments Not Currently 0 (1 standard drink = 0.6 oz pur e alcohol) PHQ-2 Answer Date Recorded Patient Health Questionnaire-2 Score 0 12/24/2023 Comments No Sex and Gender Information Value Date Recorded Sex Assigned at Female 08/25/2024 3:04 PM CHESS INSTRUCTOR Legal Sex Female 10:38 AM CDT Gender Identity Female 08/25/2024 3:30 PM CHESS INSTRUCTOR Sexual Orientation Not on file documented as of this encounter Plan of Treatment Upcoming Encounters Date Type Department Care Team (Late st Contact Info) Description 06/28/2025 10:00 AM CHESS INSTRUCTOR Office Visit [facility] Multispecialty Care - [place] [address] [place] [address] Jeannie Mccord NP [address] [place] [address] 06/28/2025 10:40 AM CHESS INSTRUCTOR Office Visit [facility] - [address], [address] [place] [address] Ney Garrett MD 3 [place] [address] 09/27/2025 10:40 AM CDT Office Visit [facility] - [address], [address] [place] [address] Ney Garrett MD [address] [place] [address] documented as of this encounter Visit Diagnoses Not on filedocumented in this encounter Additional Health Concerns Assessment Noted Time PHQ-9 Depression Total Score: 9 12/24/19 24 3:15 PM CDT documented as of this encounter Care Teams Ground Water Pump Installer Relationship Specialty Start Date End Date Jeannie Mccord PORT CRANE OPERATOR [address] [address] [address] [place] [address] PCP - General NURSE PRACTITIONER 12/24/23 documented as of this encounter
--- OUTSIDE RECORDS SUMMARY | 2025-06-28 00:11 | XMS_ITS | CCD ---
Author Name Interface, [id number] lity Address [place] [address] Organization [facility] Address [address] [place] [address] Allergies and Adverse Reactions Medication/Group Name Reaction [...]
--- OUTSIDE RECORDS SUMMARY | 2025-06-28 00:13 | XMS_ITS | Encounter Summary ---
Author Organization [facility] Address [address] [place] [address] Care Team Providers Care Loan Collector Name Role Phone Jeannie Mccord SOLUTIONS SPECIALIST Primary Care Provider [phone] Encounter Details Date Type Department Care Team (Late st Contact Info) Description 07/07/2024 Plertshart Message Enc [facility] Multispecialty Care - [place] [address] [place] [address] Jeannie Mccord NP [address] [place] [address] Sore throat Social History Tobacco Use Types Packs/Day Years Used Date Smoking Tobacco: Never Smokeless Tobacco: Never Alcohol Use Standard Drinks/Week Comments Not Currently 0 (1 standard drink = 0.6 oz pur e alcohol) PHQ-2 Answer Date Recorded Patient Health Questionnaire-2 Score 0 12/24/2023 Comments No Sex and Gender Information Value Date Recorded Sex Assigned at Female 08/25/2024 3:04 PM EMBOSSING CALENDER OPERATOR Legal Sex Female 10:38 AM CDT Gender Identity Female 08/25/2024 3:30 PM EMBOSSING CALENDER OPERATOR Sexual Orientation Not on file documented as of this encounter Plan of Treatment Upcoming Encounters Date Type Department Care Team (Late st Contact Info) Description 06/28/2025 10:00 AM EMBOSSING CALENDER OPERATOR Office Visit [facility] Multispecialty Care - [place] [address] [place] [address] Jeannie Mccord NP [address] [place] [address] 06/28/2025 10:40 AM EMBOSSING CALENDER OPERATOR Office Visit [facility] - [address], [address] [place] [address] Ney Garrett MD 3 [place] [address] 09/27/2025 10:40 AM CDT Office Visit [facility] - [address], [address] [place] [address] Ney Garrett MD [address] [place] [address] documented as of this encounter Visit Diagnoses Not on filedocumented in this encounter Additional Health Concerns Assessment Noted Time PHQ-9 Depression Total Score: 9 12/24/19 24 3:15 PM CDT documented as of this encounter Care Teams Loan Collector Relationship Specialty Start Date End Date Jeannie Mccord SOLUTIONS SPECIALIST [address] [facility] [address] [place] [address] PCP - General NURSE PRACTITIONER 12/24/23 documented as of this encounter
--- OUTSIDE RECORDS SUMMARY | 2025-06-28 00:13 | XMS_ITS ---
Author Name Interface, [id number] lity Address [place] [address] Organization [facility] Address [place] [address] Allergies and Adverse Reactions Medication/Group Name Reaction [...] * Korb - Thoracic Surgery Follow Up [facility] [address] [place] [address] P: [phone] F: [phone] THORACIC SURGERY FOLLOW UP NOTE PATIENT:??BRANDY RAMACHANDRAN :??2000 Date of Service:??11/10/[address] 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 ??CTA of the chest was done and she was diagnosed with pericarditis. ??She was treated with colchicine, NSAIDs, and steroids without improvement in her symptoms. ??She again presented in 09/2023 to an [facility] hospital and CT angio coronaries was performed [...] reviewed her CT scan with radiology at [facility]. ??There is an abnormal area [...] pain medication and is only taking the [place] ~2 times daily. She is still taking the gabapentin and robaxin TID. She reports some occasional SOB/DARLING with activity, but not as severe as before surgery. Her pain also seems to be improved. Her just took a job in [place] and they plan to move in 2 [...] and her parents - recently moved to [place] from [place] and [place] before that She is a student at [place] [employer] working to obtain her Bachelor's degree in [...] 3. She should follow up with Dr. Parkre as scheduled. 4. I will send a refill for her pain medication today. 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 Send copy of note to: Dr. Jeff Parker . Electronically signed by Renetta French MD 11/10/2023 11:48 CDT
--- OUTSIDE RECORDS SUMMARY | 2025-06-28 00:13 | XMS_ITS | Encounter Summary ---
Author Organization [facility] Address [address] [place] [address] Care Team Providers Care Osteopathic Medicine Teacher Name Role Phone Jeannie Mccord NP Primary Care Provider [phone] Encounter Details Date Type Department Care Team (Latest Contact Info) Description 05/21/2025 Results Follow-Up [facility] [place] [address] [place] [address] Jeannie Mccord NP [address] [place] [address] HCG QUANT (SERUM)-CHORIONIC GONADOTROPIN Social History Tobacco Use Types Packs/Day Years Used Date Smoking Tobacco: Never Smokeless Tobacco: Never Alcohol Use Standard Drinks/Week Comments Not Currently 0 (1 standard drink = 0.6 oz pur e alcohol) PHQ-2 Answer Date Recorded Patient Health Questionnaire-2 Score 6 05/07/2025 Comments No Sex and Gender Information Value Date Recorded Sex Assigned at Female 08/25/2024 3:04 PM PORCELAIN BUILDUP ASSISTANT Legal Sex Female 10:38 AM CDT Gender Identity Female 08/25/2024 3:30 PM PORCELAIN BUILDUP ASSISTANT Sexual Orientation Not on file documented as of this encounter Plan of Treatment Upcoming Encounters Date Type Department Care Team (Late st Contact Info) Description 06/28/2025 10:00 AM PORCELAIN BUILDUP ASSISTANT [facility] [place] [address] [place] [address] Jeannie Mccord, DRILL PRESS OPERATOR FOR METAL [address] [place] [address] 06/28/2025 10:40 AM PORCELAIN BUILDUP ASSISTANT Office Visit [address], [address] [place] [address] Ney Garrett MD [address] [place] [address] 09/27/2025 10:40 AM CDT Office Visit [address], [address] [place] [address] Ney Garrett MD [address] [place] [address] documented as of this encounter Visit Diagnoses Not on filedocumented in this encounter Additional Health Concerns Assessment Noted Time PHQ-9 Depression Total Score: 20 025 9:24 AM CDT documented as of this encounter Care Teams Osteopathic Medicine Teacher Relationship Specialty Start Date End Date Jeannie Mccord NP [address] [place] [address] PCP - General NURSE PRACTITIONER 12/24/23 documented as of this encounter
--- OUTSIDE RECORDS SUMMARY | 2025-06-28 00:13 | XMS_ITS | Patient Health Record ---
Author Organization [facility] 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 Problem COVID-19 (660255674) COVID-19 (U07.1) Active confirmed Problem Postural orthostatic tachycardia syndrome (disorder) (272035930) Postural orthostatic tachycardia syndrome [POTS] (G90.A) Active confirmed Plan Of Treatment No Information Insurance Providers Payer Name Payer Address Payer Phone Subscriber Number Group Number Insured Name Patient Relationship to Insured Coverage Start Date Coverage End Date [facility] [address] [address] [place], [place] [id number] Celestina Alvarez Self - patient is the insured Medical (General) History Medical History History ICD Code POTS after Covid 2020. ( say s had Covid times). Has had only the first two vaccines. Asthma diagnosed when very young Surgical History Surgery Date(Month/Year)
--- OUTSIDE RECORDS SUMMARY | 2025-06-28 00:13 | XMS_ITS | Encounter Summary ---
Author Organization [facility] Address [address] [place] [address] Care Team Providers Care Abattoir Supervisor Name Role Phone Jeannie Mccord LEGAL INVESTIGATOR Primary Care Provider [phone] Encounter Details Date Type Department Care Team (Latest Contact Info) Description 05/09/2025 Results Follow-Up [facility] - [place] [address] [place] [address] Jeannie Mccord, LEGAL INVESTIGATOR [address] [facility] [facility] [address] [place] [address] ANTINUCLEAR ANTIBODY WI RFX (DARLENE), FERRITIN, TRANSFERRIN, [...] Sex Assigned at Female 08/25/2024 3:04 PM RELIEF DOCKING MASTER Legal Sex Female 10:38 AM CDT Gender Identity Female 08/25/2024 3:30 PM RELIEF DOCKING MASTER Sexual Orientation Not on file documented as of this encounter Plan of Treatment Upcoming Encounters Date Type Department Care Team ( st Contact Info) Description 06/28/2025 10:00 AM RELIEF DOCKING MASTER [facility] [place] [address] [place] [address] Jeannie Mccord, SINA [address] [facility] [address] [place] [address] 06/28/2025 10:40 AM RELIEF DOCKING MASTER Office Visit [address], [address] [place] [address] Ney Garrett MD [address] [place] [address] 09/27/2025 10:40 AM CDT Office Visit [address], [address] [place] [address] Ney Garrett MD [address] [place] [address] documented as of this encounter Visit Diagnoses Not on filedocumented in this encounter Additional Health Concerns Assessment Noted Time PHQ-9 Depression Total Score: 20 025 9:24 AM CDT documented as of this encounter Care Teams Abattoir Supervisor Relationship Specialty Start Date End Date Jeannie Mccord LEGAL INVESTIGATOR [address] [facility] [address] [place] [address] PCP - General NURSE PRACTITIONER 12/24/23 documented as of this encounter
--- OUTSIDE RECORDS SUMMARY | 2025-06-28 00:13 | XMS_ITS | Clinical Summary ---
Author Organization [facility] Address Critical access hospital1 [place] [address] Care Team Providers Care Dry Yard Worker Name Role Phone Jeannie Mccord NP Primary Care Provider [phone] Allergies Active Allergy Reactions Criticality Noted Date [...] Department Care Team Description 05/22/2025 Therapy Plan [facility] Medical Group Multis[facility]ty Care - [address], [address] [place] [address] Ney Garrett MD 05/21/2025 10:00 AM HOME DAY CARE PROVIDER [facility] [place] - [place] [address] [place] [address] Jeannie Mccord, DIRECT CARE STAFFER Forms 05/21/2025 Scan HEALTH INFO SRVCS Scanned, Doc Med Group 05/21/2025 - 05/21/2025 11:59 PM HOME DAY CARE PROVIDER Hospital Encounter [facility] [address] [place] [address] Jeannie Mccord, DIRECT CARE STAFFER Discharge Disposition: Home or Self Care (Routine Discharge) 05/21/2025 Results Follow-Up [address] [place] [address] Jeannie Mccord, SINA HCG QUANT (SERUM)-CHORIONIC GONADOTROPIN 05/21/[address] [facility] - [address] [place] [phone] Ney Garrett MD Medication 05/21/2025 Travel 05/14/2025 MyChart Message Enc [facility] - [address] [place] [address] Jeannie Mccord, SINA Migraine Meds 05/09/2025 Results [facility] [place] - [address] [place] [address] Jeannie Mccord, DIRECT CARE STAFFER ANTINUCLEAR ANTIBODY WI RFX (DARLENE), FERRITIN, TRANSFERRIN, Additional followed-up results: 6 05/07/2025 8:40 AM CDT Office Visit [address] [place] [address] Jeannie Mccord, DIRECT CARE STAFFER Medication Check 05/07/2025 - 05/07/2025 11:59 PM CDT Hospital Encounter [facility] [address] [place] [address] Jeannie Mccord, DIRECT CARE STAFFER Discharge Disposition: Home or Self Care (Routine Discharge) 05/07/2025 Travel 04/26/2025 Telephone [facility] [place] - [address] [place] [address] Jeannie Mcocrd, DIRECT CARE STAFFER Reschedule 03/29/2025 12:20 PM CDT [facility] [place] - [place] [address] [address] [place] [address] Jeannie Mccord, DIRECT CARE STAFFER Medication Check ; Anxiety 03/29/2025 10:40 AM CDT [facility] [place] - [address], [address] [place] [phone] Ney Garrett MD Botox Procedure (Chronic migraine) [...] Sex Assigned at Female 08/25/2024 3:04 PM HOME DAY CARE PROVIDER Legal Sex Female 10:38 AM CDT Gender Identity Female 08/25/2024 3:30 PM HOME DAY CARE PROVIDER Sexual Orientation Not on file Last Filed Vital Signs Vital Sign Reading Time Taken Comments Blood Pressure 123/83 05/21/2025 10:06 AM HOME DAY CARE PROVIDER Pulse 114 05/21/2025 10:06 AM HOME DAY CARE PROVIDER Temperature 36.4 C (97.6 F) 05/21/2025 10:06 AM HOME DAY CARE PROVIDER Respiratory Rate 16 05/21/2025 10:06 AM HOME DAY CARE PROVIDER Oxygen Saturation 100% 05/21/2025 10:06 AM HOME DAY CARE PROVIDER Inhaled Oxygen Concentration - - Weight 58.7 kg (129 lb 6.4 oz) 05/21/2025 10:06 AM HOME DAY CARE PROVIDER Height 157.5 cm (5' 2) 05/21/2025 10:06 AM HOME DAY CARE PROVIDER Body Mass Index 23.67 05/21/2025 10:06 AM HOME DAY CARE PROVIDER Plan of Treatment Upcoming Encounters Date Type Department Care Team (Late st Contact Info) Description 06/28/2025 10:00 AM HOME DAY CARE PROVIDER [facility] [place] [address] [place] [address] Jeannie Mccord DIRECT CARE STAFFER [address] [place] [address] 06/28/2025 10:40 AM HOME DAY CARE PROVIDER [facility] [place] - [facility] [address], [address] [place] [phone] Ney Garrett MD [address] [place] [address] 09/27/2025 10:40 AM CDT [facility] [place] - [facility] [address], [address] [place] [phone] Ney Garrett MD [address] [place] [address] Health Maintenance Due Date Last Done Comments [...] Hepatitis C Completed 01/27/2024, 08/13/2023 PHQ-2 (Physician [place]) Completed 05/07/2025 Hepatitis A Vaccines Aged Out [...] QUANT (SERUM)-CHORIONIC GONADOTROPIN Routine 05/21/2025 10:38 AM HOME DAY CARE PROVIDER Positive test ([facility]) History of miscarriage [facility] [...] [place] Routine 05/07/2025 9:42 AM CDT Myalgia ELECTRICIAN DECK ANTIBODY Routine 05/07/2025 9:42 AM CDT Myalgia [...] HCG QUANT (SERUM)-CHORIONIC GONADOTROPIN (05/21/2025 10:38 AM HOME DAY CARE PROVIDER) Pathologist [facility] HCG QUANTITATIVE 513 MIU/ML 05/21/20 5:40 PM HOME DAY CARE PROVIDER [facility] Comment: <5 IS NEGATIVE 5-25 IS BORDERLINE >25 IS POSITIVE ASSAY PERFORMED BY CHEMILUMINESCENCE METHODOLOGY USING [employer]EM[employer] [facility] REAGENT. PATIENT RESULTS DETERMINED BY ASSAYS USING DIFFERENT MANUFACTURERS FOR METHODS MAY NOT BE COMPARABLE. BLOOD VENOUS BLOOD SPECIMEN / Unknown 05/21/2025 10:38 AM HOME DAY CARE PROVIDER Jeannie Mccord NP LABORATORY Final Resul t [facility] [address] [place] [id number], [id number] * ELECTRICIAN DECK ANTIBODY (05/07/2025 9:42 AM CDT) Pathologist [facility] ELECTRICIAN DECK (U1) AB S/P/B 1.2 0.0 - 4.9 U/mL 05/09/2025 11:49 AM CDT [facility] Comment: NEGATIVE: <5 U/mL EQUIVOCAL: 5 to 10 U/mL POSITIVE: >10 U/mL AUTOANTIBODIES TO ELECTRICIAN DECK ARE FOUND IN GREATER THAN 95% OF PATIENTS WITH MIXED CONNECTIVE TISSUE DISEASE (MCTD), BUT ARE ALSO SEEN IN SYSTEMIC LUPUS ERYTHEMATOUS (40%), RHEUMATOID ARTHRITIS (10%), SCLERODERMA SYNDROME (10%), AND RARELY IN DRUG INDUCED LUPUS AND SJOGREN'S SYNDROME. ABSENCE OF ELECTRICIAN DECK ANTIBODIES USUALLY RULES OUT MCTD. 05/07/2025 9:42 AM CDT Jeannie Mccord NP LABORATORY Final Resul t [facility] [address] [place] [address], [place] [phone] * TSH W/REFLEX (05/07/2025 9:42 AM CDT) TSH 0.530 0.358 - 3.740 uIU/ML 05/07/2025 4:40 PM CDT [facility] 05/07/2025 9:42 AM CDT Jeannie Mccord NP LABORATORY Final Resul t Performing Organization Address [facility] Co de Phone Number [facility] [address] [place] [address], * ANTINUCLEAR ANTIBODY WI RFX (DARLENE) (05/07/2025 9:42 AM CDT) DARLENE <0.09 05/09/2025 11:49 AM CDT [facility] Comment: NEGATIVE: <0.7 RATIO DARLENE PROFILE AND TITER NOT PERFORMED THE DARLENE SCREEN TESTS FOR THE FOLLOWING ANTIBODIES BY EIA: SSA1 (RO), SSB1 (LA), FRAZIER, SCL70, JO1, CENTROMERE, ELECTRICIAN DECK HISTONE MUST BE ORDERED SEPARATELY DNA (DS) ANTIBODY <0.6 IU/ML 025 11:49 AM CDT [facility] Comment: NEGATIVE: <10 IU/mL EQUIVOCAL: 10 to 15 IU/mL POSITIVE: >15 IU/mL THIS QUANTITATIVE ASSAY IS CALIBRATED TO THE [employer]'S WO/80 STANDARD. THE LEVEL OF dsDNA AUTOANTIBODY GERERALLY CORRELATES WITH THE LEVEL OF DISEASE ACTIVITY IN SYSTEMIC LUPUS ERYTHMATOSUS 05/07/2025 9:42 AM CDT us Jeannie Mccord NP LABORATORY Final Resul t Performing Organization Address [facility] Co de Phone Number [facility] [address] [place] [address], [place] [phone] * (ABNORMAL) IRON SAT PANEL (IRON,IBC,%SAT) (05/07/2025 9:42 AM CDT) IRON 46(L) 50 - 170 MCG/DL 05/07/2025 4:40 PM CDT [facility] IRON BINDING CAPACITY 299 250 - 450 MCG/DL 05/07/2025 4:40 PM CDT [facility] IRON SATURATION 15 % 4:40 PM CDT [facility] Comment:REFERENCE RANGE NOT ESTABLISHED 05/07/2025 9:42 AM CDT us Jeannie Mccord NP LABORATORY Final Resul t Performing Organization Address [facility] de Phone Number [facility] [address] [place] [address], [place] [phone] * TRANSFERRIN (05/07/2025 9:42 AM CDT) TRANSFERRIN 250 200 - 360 mg/dL 05/07/2025 5:58 PM CDT [facility] 05/07/2025 9:42 AM CDT us Jeannie Mccord NP LABORATORY Final Resul t Performing Organization Address [facility] Co de Phone Number [facility] [address] [place] [address], [place] [phone] * (ABNORMAL) COMPREHENSIVE METABOLIC PANEL (05/07/2025 9:42 AM CDT) [facility] SODIUM S/P/B 141 136 - 145 MMOL/L 05/07/2025 4:40 PM CDT [facility] POTASSIUM S/P/B 4.4 3.5 - 5.1 MMOL/L 05/07/2025 4:40 PM CDT [facility] CHLORIDE S/P/B 104 98 - 107 MMOL/L 05/07/2025 4:40 PM CDT [facility] CO2 27.8 21 - 32 MMOL/L 05/07/2025 4:40 PM T [facility] GLUCOSE 98 70 - 99 MG/DL 05/07/2025 4:40 PM CDT [facility] BUN 5(L) 7 - 18 MG/DL 05/07/2025 4:40 PM T [facility] CREATININE S/P/B 0.57 0.55 - 1.02 MG/DL 05/07/2025 4:40 PM CDT [facility] CALCIUM S/P/B 9.6 8.4 - 10.5 MG/DL 05/07/2025 4:40 PM CDT [facility] BILIRUBIN TOTAL S/P/B 0.3 0.2 - 1.0 MG/DL 05/07/2025 4:40 PM CDT [facility] ALKALINE PHOSPHATASE S/P/B 85 52 - 144 U/L 05/07/2025 4:40 PM CDT [facility] AST 14(L) 15 - 37 U/L 05/07/2025 4:40 PM CDT [facility] ALT 17 14 - 59 U/L 05/07/2025 4:40 PM CDT [facility] TOTAL PROTEIN S/P/B 7.7 6.4 - 8.2 G/DL 05/07/2025 4:40 PM CDT [facility] ALBUMIN S/P/B 4.1 3.4 - 5.0 G/DL 05/07/2025 4:40 PM CDT [facility] ANION GAP 9.2 5 - 15 MMOL/L 05/07/2025 4:40 PM CDT [facility] Comment:REFERENCE RANGE NOT ESTABLISHED OSMOLALITY (CALC) 289 MOSM/KG 025 4:40 PM CDT [facility] Comment:REFERENCE RANGE NOT ESTABLISHED GFR ESTIMATE >90 >90 ML/MIN/1. 73 M2 05/07/2025 4:40 PM CDT [facility] GFR NOTES GFR REFERENCE S: 05/07/2025 4:40 PM T [facility] Comment: THE ESTIMATED GFR IS CALCULATED [...] Jeannie Mccord NP LABORATORY Final Resul t [facility] [address] [place] [address], * (ABNORMAL) CBC W/DIFF AUTOMATED (05/07/2025 9:42 AM CDT) WBC 8.59 4.00 - 10.80 x10'3/uL 05/07/2025 3:23 PM CDT [facility] RBC 4.56 4.10 - 5.40 x10'6/uL 05/07/2025 3:23 PM CDT [facility] HGB 13.9 12.0 - 16.0 G/DL 05/07/2025 3:23 PM CDT [facility] HCT 41.3 36.0 - 47.0 % 05/07/2025 3:23 PM CDT [facility] MCV 90.6 78.0 - 100.0 FL 05/07/2025 3:23 PM CDT [facility] MCH 30.5 27.0 - 31.0 PG 05/07/2025 3:23 PM CDT [facility] MCHC 33.7 33.0 - 36.0 G/DL 05/07/2025 3:23 PM CDT [facility] RDW 11.8 11.5 - 14.5 % 05/07/2025 3:23 PM CDT [facility] PLT 280 150 - 350 x10'3/uL 05/07/2025 3:23 PM CDT [facility] MPV 11.7(H) 7.4 - 10.4 FL 05/07/2025 3:23 PM CDT [facility] DIFFERENTIAL TYPE AUTOMATED DIFFERENTIAL 05/07/2025 3:23 PM CDT [facility] NEUTROPHILS % 64.3 % 05/07/2025 3:23 PM CDT [facility] LYMPHOCYTES % 22.1 % 05/07/2025 3:23 PM CDT [facility] MONOCYTES % 8.0 % 05/07/2025 3:23 PM CDT [facility] EOSINOPHILS % 4.7 % 05/07/2025 3:23 PM CDT [facility] BASOPHILS % 0.6 % 05/07/2025 3:23 PM CDT [facility] IMMATURE GRANS % 0.3 % 05/07/2025 3:23 PM CDT [facility] ABS. NEUTROPHILS 5.52 1.60 - 8.30 x10'3/uL 05/07/2025 3:23 PM CDT [facility] ABS. LYMPHOCYTES 1.90 0.80 - 4.70 x10'3/uL 05/07/2025 3:23 PM CDT [facility] ABS. MONOCYTES 0.69 0.00 - 1.50 x10'3/uL 05/07/2025 3:23 PM CDT [facility] ABS. EOSINOPHILS 0.40 0.00 - 0.40 x10'3/uL 05/07/2025 3:23 PM CDT [facility] ABS. BASOPHILS 0.05 0.00 - 0.20 x10'3/uL 05/07/2025 3:23 PM CDT [facility] ABS. IMMATURE GRANULOCYTES 0.03 0.00 - 0.03 x10'3/uL 05/07/2025 3:23 PM CDT [facility] 05/07/2025 9:42 AM CDT Jeannie Mccord NP LABORATORY Final Resul t Performing Organization Address [facility] Co de Phone Number [facility] [address] [place] [address], * VITAMIN D, 25 [place] (05/07/2025 9:42 AM CDT) Pathologist [facility] VITAMIN D 25 HYDROXY TOTAL S/P/B 41.7 30 - 100 NG/ML 05/07/2025 4:40 PM CDT [facility] Comment: DEFICIENT <20 INSUFFICIENT 20-30 SUFFICIENT 30-100 05/07/2025 9:42 AM CDT Jeannie Mccord NP LABORATORY Final Resul t [facility] [address] [facility] [place] [address], [place] [phone] * FERRITIN (05/07/2025 9:42 AM CDT) FERRITIN 26.0 8.0 - 252.0 NG/ML 05/07/2025 5:59 PM CDT [facility] 05/07/2025 9:42 AM CDT us Jeannie Mccord DIRECT CARE STAFFER LABORATORY Final Resul t [facility] [address] [place] [address], [place] [phone] * HEP C SCANNED ORDERS (08/13/2023) us Doc [facility] Scanned SCANNING Final Resu lt [facility] ONBASE from Last 3 Months or Most Recently Relevant to Health Maintenance Insurance [facility] Care Teams Dry Yard Worker Relationship Specialty Start Date End Date Jeannie Mccord DIRECT CARE STAFFER [address] [address] [place] [address] PCP - General NURSE PRACTITIONER 12/24/23
[2025-06-28] MEDS: SODIUM CHLORIDE 0.9% IV 1,000 ML 999 ML IV CONT (00:55)
[2025-06-28] MEDS: PIPERACILLIN/TAZOBACTAM SOD 3.375 GM in SODIUM CHLORIDE 0.9% IV 50 ML 100 ML IVPB ×2 (02:05→10:20)
--- NOTE | 2025-06-28 02:21 | ED.ABDPAIN ---
HPI - Abdominal Pain General Chief Complaint: Abdominal Pain Stated Complaint: sharp right lower abdominal pain and 10 weeks preg Time Seen by Provider: 06/27/25 23:43 History of Present Illness HPI narrative: 24-year-old female currently 10 weeks presenting with acute right lower quadrant abdominal pain that started earlier this evening. Patient states the pain woke her from sleep and she shortly thereafter began having nausea and vomiting. Denies fevers/chills, chest pain/shortness breath, urinary concerns, or vaginal complaints. Patient reports established care with OBGYN Dr. Pushpa Henson. has been confirmed as a viable intrauterine . Related Data Home Medications ?Medication ?Instructions ?Recorded ?Confirmed ?Last Taken ?Type doxylamine succinate 25 mg tablet 25 mg PO HS insomnia 09/26/24 06/28/25 06/27/25 History ondansetron HCl 4 mg tablet 8 mg PO Q6H PRN nausea and vomiting 09/26/24 06/28/25 09/26/24 07:00 History 4 mg aripiprazole 2 mg tablet (Abilify) 2 mg PO HS 06/28/25 06/28/25 06/27/25 History duloxetine 20 mg capsule,delayed 40 mg PO HS 06/28/25 06/28/25 06/27/25 History release (Cymbalta) omega-3 fatty acids 500 mg PO DAILY 06/28/25 06/28/25 06/27/25 History progesterone micronized 200 mg 200 mg PO QPM 06/28/25 06/28/25 06/27/25 History capsule Allergies Allergy/AdvReac Type Severity Reaction Status Date / Time sumatriptan AdvReac Unknown Dizziness Verified 06/28/25 04:54 Review of Systems Review of Systems: All systems reviewed & are unremarkable except as noted in HPI and below PMFSH Surgical History Surgical History (Updated 09/27/24 @ 06:49 by Buck Gallardo MD) History of ankle surgery left tendon lengthening at medial ankle Family History Family History (Updated 06/28/25 @ 05:04 by Andreia Vera RN) Grandparent Breast cancer Social History Social History Smoking status: Former smoker Tobacco type: e-cigarettes/vaping Smokeless tobacco user: other Alcohol intake: never Substance use: never Substance use type: marijuana Lack of Transportation: No Lack of Food: Never True Current Housing: I Have Housing Concerned About Future Housing: No Difficulty Paying Gas/Electric Bills: No Difficulty Paying for Meds: No Currently Unemployed: No Education: Bachelor's Degree Difficulty w/ Childcare or Family Care: No Living arrangements: alone Spiritual care concerns: Yes Exam Narrative: GENERAL: Uncomfortable. No acute distress. HEAD: Normocephalic, atraumatic. EYES: PERRLA and EOMI. ENT: Nares clear, no rhinorrhea or epistaxis. Mucous membranes moist. Oropharynx without tonsillar hypertrophy exudate or other lesions. Bilateral TMs pearly kelly non-bulging NECK: Supple. No adenopathy or masses. No carotid bruits or JVD CHEST: Clear to auscultation. No respiratory distress. No wheezes rales or rhonchi HEART: Tachycardic. Regular rhythm. No murmur heard. Normal peripheral pulses. ABDOMEN: Significant TTP. +McBurney, Rovsing, and Psoas sign. EXTREMITIES: Normal range of motion. No edema. SKIN: Warm, dry, no rash. NEURO: No focal deficits. Alert and oriented x3. PSYCH: Normal mood and affect Course Vital Signs Vital signs: Vital Signs Temperature 97.4 F L 06/27/25 23:02 Pulse Rate 119 H 06/27/25 23:02 Respiratory Rate 24 H 06/27/25 23:02 Blood Pressure 128/75 06/27/25 23:02 Pulse Oximetry 100 06/27/25 23:02 Oxygen Delivery Room Air 06/27/25 23:02 Temperature 97.9 F 06/29/25 08:00 Pulse Rate 102 H 06/29/25 08:00 Respiratory Rate 16 06/29/25 08:00 Blood Pressure 104/67 06/29/25 08:00 Pulse Oximetry 99 06/29/25 08:00 Oxygen Delivery Room Air 06/29/25 08:00 Oxygen Flow Rate 8 06/28/25 14:50 MDM MDM Narrative Medical decision making narrative: 24-year-old female currently 10 weeks presenting with acute right lower quadrant abdominal pain that started earlier this evening. Patient states the pain woke her from sleep and she shortly thereafter began having nausea and vomiting. Denies fevers/chills, chest pain/shortness breath, urinary concerns, or vaginal complaints. Patient reports established care with OBGYN Dr. Pushpa Henson. has been confirmed as a viable intrauterine . On exam patient demonstrates significant right lower quadrant tenderness, which is concerning for an acute intra-abdominal process. Patient is tachycardic and laboratory studies notable for leukocytosis to 16, which exceeds expected physiological leukocytosis for early . No alternate source of infection identified on evaluation. Given localized RLQ tenderness, leukocytosis, tachycardia, and associated nausea/vomiting, there is high clinical concern for acute appendicitis, particularly given lack of alternative explanation. Discussed with general surgeon Dr. Pittman patient presentation and workup. He advises going ahead with a non-contrast CT scan for timely diagnosis. Empiric IV antibiotics initiated. CT demonstrates signs of acute appendicitis. Dr. Pittman agrees with admission at this time. Patient is stable pending transfer upstairs. Differential Diagnosis Differential Diagnosis: Differential diagnostic considerations for acute abdominal pain include surgical abdominal etiology, ischemic bowel, inflammatory bowel disease, gastritis, PUD, gastroenteritis, cardiac etiology, appendicitis, diverticulitis, bowel obstruction, kidney stone, pyelonephritis, abdominal aortic aneurysm, pancreatitis, constipation, endometriosis. Medical Records I have reviewed the following patient records and this information was taken into consideration when formulating the assessment and plan.: previous labs, previous ER visits and previous clinic visits Lab Data MDM Lab Attestation statement: I personally reviewed the patient's lab results. 06/29/25 04:58 06/29/25 04:58 Labs: Lab Results 06/27/25 Range/Units 23:33 WBC 16.5 H (4.5-10.0) K/mm3 RBC 4.52 (4.2-5.4) M/mm3 Hgb 13.9 (12.0-15.0) g/dL Hct 39.3 (37.0-47.0) % MCV 86.9 (80-100) fl MCH 30.8 (26-34) pg MCHC 35.4 (32-36) g/dl RDW 12.2 (11.5-14.5) % Plt Count 300 (150-375) k/mm3 MPV 10.2 (7.4-10.4) fl Immature Gran % (Auto) 0.7 H (0-0.5) % Neut % (Auto) 79.2 H (45.5-73.1) % Lymph % (Auto) 14.8 L (18.3-44.2) % Esmeralda % (Auto) 4.7 (2.6-8.5) % Eos % (Auto) 0.4 (0-4.4) % Baso % (Auto) 0.2 (0.2-1.2) % Lymph # (Auto) 2.43 (0.9-3.2) K/mm3 Esmeralda # (Auto) 0.8 H (0.1-0.6) K/mm3 Eos # (Auto) 0.1 (0-0.3) K/mm3 Baso # (Auto) 0.0 (0.0-0.1) K/mm3 Abs Immat Gran (auto) 0.11 H (0.00-0.031) K/mm3 Absolute Neuts (auto) 13.0 H (1.3-6.7) K/mm3 Absolute Nucleated RBC 0.000 (0.0-0.012) K/mm3 Nucleated RBC % 0.0 (0.0-0.2) % Sodium 136 L (137-145) mmol/L Potassium 3.6 (3.4-5.0) mmol/L Chloride 103 (98-107) mmol/L Carbon Dioxide 22 (22-30) mmol/L Anion Gap 11 (4-12) mmol/L BUN 8 (7-17) mg/dL Creatinine 0.47 L (0.7-1.0) mg/dL Estim Creat Clear Calc 122 ml/min Estimated GFR > 60 (59 - ) Glucose 115 H (65-110) mg/dL Calcium 9.9 (8.4-10.2) mg/dL Total Bilirubin 0.5 (0.2-1.3) mg/dL AST 32 (14-36) U/L ALT 16 (6-35) U/L Alkaline Phosphatase 75 (38-126) U/L Total Protein 7.8 (6.3-8.2) g/dL Albumin 4.5 (3.5-5.1) g/dL Lipase 66 (23-300) U/L Urine Color Yellow (Yellow) Urine Appearance Turbid H (Clear) Urine pH 8.5 (5.0-9.0) Ur Specific [place] 1.018 (1.001-1.035) Urine Protein Negative (Negative) mg/dL Urine Glucose (UA) Negative (Negative) mg/dL Urine Ketones 1+ H (Negative) mg/dL Ur Blood (Man) Negative (Negative) Urine Nitrate Negative (Negative) Urine Bilirubin Negative (Negative) Urine Urobilinogen 0.2 (<2.0) mg/dL Leukocyte Esterase Rfl 1+ H (Negative) JAYDA/UL Urine RBC 0-2 (0-2) /hpf Urine WBC 6-10 H (0-3) /hpf Ur Squamous Epith Cells Few (Few) /hpf Urine Bacteria Trace /hpf Urine Casts 3-5 Imaging Data Radiologist's impression: ITS Impressions Abdomen/Pelvis CT 06/28/25 06:36 IMPRESSION: 1. Worrisome for early acute appendicitis. Discharge Plan Discharge Clinical Impression: Acute appendicitis, Patient Disposition: Still a Patient Condition: Improved
[2025-06-28] MEDS: ACETAMINOPHEN 500 MG TABLET 1000 MG PO ×2 (02:48→13:11)
--- NOTE | 2025-06-28 03:56 | WPCEDHO ---
ED Hand Off Checklist All vitals saved: Y IV Site documented: Y All med administrations documented: Y Triage Note Triage Note pt to ED with c/o sharp lower 06/27/25 23:02 abdominal pain on the right side. pt reports she is 10 weeks . pt denies any bleeding. pt states pain started about 3 hours WIRE SPOOL[employer]. pt states she has n/v that has been getting worse. pt still has appendix. Allergies sumatriptan Adverse Reaction (Unknown, Verified 09/27/24 07:16) Dizziness pain throughout body Administered/Completed Medications Discontinued Medications Acetaminophen (Acetaminophen 500 Mg Tablet) 1,000 mg PO ONCE STA Stop: 06/28/25 02:37 Last Admin: 06/28/25 02:48 Dose: 1,000 mg Documented By: TANYA Sodium Chloride (Normal Saline Iv) 1,000 mls @ 999 mls/hr IV CONT .Q1H1M STA Stop: 06/28/25 01:52 Last Infusion: 06/28/25 03:22 Dose: Infused Documented By: Admin: 06/28/25 00:55 Dose: 999 mls/hr Documented By: TANYA Piperacillin Sod/Tazobactam (Sod 3.375 gm/ Sodium Chloride) 50 mls @ 100 mls/hr IVPB ONCE STA Stop: 06/28/25 02:14 Last Infusion: 06/28/25 02:35 Dose: Infused Documented By: Admin: 06/28/25 02:05 Dose: 100 mls/hr Documented By: TANYA Interventions/Assessments IV / Saline Lock, Insert Start: 06/27/25 23:28 Freq: STAT Status: Active Protocol: Document 06/28/25 00:55 HANKK (Rec: 06/28/25 00:56 HNK [id number]) IV Assessment Peripheral Access Right Antecubital IV Catheter Access Initiated IV Insertion Date 06/28/25 IV Insertion Time 00:00 Catheter Gauge 18 IV Insertion 1 Attempts Ultrasound Used for No Placement IV Site Assessment WNL IV Care and WNL Maintenance PA: Gastrointestinal Assessment Start: 06/27/25 23:02 Freq: Status: Active Protocol: Document 06/27/25 23:30 HNK (Rec: 06/28/25 03:13 HNK [id number]) GI Assessment Gastrointestinal Nausea,Pain,Vomiting Symptoms Description Soft,Tender Pattern Normal Flatus Present Gastrointestinal RLQ abd pain w/ N/V Additional Comments Last Vital Signs Temperature 97.4 F L 06/27/25 23:02 Pulse Rate 97 06/28/25 03:31 Respiratory Rate 15 06/28/25 03:31 Pulse Oximetry 100 06/28/25 03:31 Blood Pressure 114/71 06/28/25 03:31 Blood Pressure Mean 82 06/28/25 03:31 Oxygen Delivery Room Air 06/27/25 23:02 Weight 59.3 kg 06/27/25 23:02 Last Result - Abnormals Only WBC 16.5 K/mm3 (4.5-10.0) H 06/27/25 23:33 Immature Gran % (Auto) 0.7 % (0-0.5) H 06/27/25 23:33 Neut % (Auto) 79.2 % (45.5-73.1) H 06/27/25 23:33 Lymph % (Auto) 14.8 % (18.3-44.2) L 06/27/25 23:33 [place] # (Auto) 0.8 K/mm3 (0.1-0.6) H 06/27/25 23:33 Abs Immat Gran (auto) 0.11 K/mm3 (0.00-0.031) H 06/27/25 23:33 Absolute Neuts (auto) 13.0 K/mm3 (1.3-6.7) H 06/27/25 23:33 Sodium 136 mmol/L (137-145) L 06/27/25 23:33 Creatinine 0.47 mg/dL (0.7-1.0) L 06/27/25 23:33 Glucose 115 mg/dL (65-110) H 06/27/25 23:33 Urine Appearance Turbid (Clear) H 06/27/25 23:33 Urine Ketones 1+ mg/dL (Negative) H 06/27/25 23:33 Leukocyte Esterase Rfl 1+ JAYDA/UL (Negative) H 06/27/25 23:33 Urine WBC 6-10 /hpf (0-3) H 06/27/25 23:33 Most Recent Suicide Severity Rating Suicide Severity Rating NO RISK INDICATED 06/27/25 23:30
--- NOTE | 2025-06-28 04:31 | ADMGEN ---
This patient, Celestina Alvarez, was admitted to Medical Room 245-01. Patient/family oriented to hospital policies and general routines including ID bracelet, bed and alarms, visiting hours, pain management, procedures, bathroom and other care routines, personal items, smoking policy, room service/diet, and visiting hours. Information on how to activate the Rapid Response Team has been discussed. Patient/Family are encouraged to report perceived risks to care and to ask questions if they do not understand what they are told or what they should do.
[2025-06-28] MEDS: ONDANSETRON INJ 4 MG/2 ML VIAL IV PUSH ×4 (04:35→20:05)
[2025-06-28] MEDS: ACETAMINOPHEN 325 MG TABLET 650 MG PO (06:07)
--- NOTE | 2025-06-28 10:31 | P.HP_ITS ---
H&P: HPI History of Present Illness Date/Time: 06/28/25 10:31 Chief Complaint: Patient is a 24 year old female, currently 10 weeks who presented to the ED around 2 am this morning with right lower quadrant pain. Patient states that she first noticed pain around 8 pm. She applied a heating pad to the area and was able to fall asleep. She was awoken by the pain 1-2 hours later and had associated nausea and vomiting. Upon arrival to the ED, she was afebrile, but had a WBC of 16.5. CT demonstrated evidence worrisome for early acute appendicitis. General surgery team consulted. Patient started on IV antibiotics. Upon interview thiss morning, patient is still having pain to her right lower quadrant. She denies any previous abdominal surgeries. 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 Patient last ate dinner last night. She had a bowel movement yesterday, but states that she has been experiencing some constipation with her . [facility] Surgical History Surgical History (Updated 09/27/24 @ 06:49 by Buck Gallardo MD) History of ankle surgery left tendon lengthening at medial ankle Family History Family History (Updated 06/28/25 @ 05:04 by Andreia Vera RN) Grandparent Breast cancer Social History Social History Smoking status: Former smoker Tobacco type: e-cigarettes/vaping Smokeless tobacco user: other Alcohol intake: never Substance use: never Substance use type: marijuana Lack of Transportation: No Lack of Food: Never True Current Housing: I Have Housing Concerned About Future Housing: No Difficulty Paying Gas/Electric Bills: No Difficulty Paying for Meds: No Currently Unemployed: No Education: Bachelor's Degree Difficulty w/ Childcare or Family Care: No Living arrangements: alone Spiritual care concerns: Yes Meds Home Medications and Allergies Home Medications ?Medication ?Instructions ?Recorded ?Confirmed ?Type doxylamine succinate 25 mg tablet 25 mg PO HS insomnia 09/26/24 06/28/25 History ondansetron HCl 4 mg tablet 8 mg PO Q6H PRN nausea and vomiting 09/26/24 06/28/25 History aripiprazole 2 mg tablet (Abilify) 2 mg PO HS 12/18/25 12/18/25 History duloxetine 20 mg capsule,delayed 40 mg PO HS 06/28/25 06/28/25 History release (Cymbalta) omega-3 fatty acids 500 mg PO DAILY 06/28/25 History progesterone micronized 200 mg 200 mg PO QPM 06/28/25 06/28/25 History capsule Allergies Allergy/AdvReac Type Severity Reaction Status Date / Time sumatriptan AdvReac Unknown Dizziness Verified 06/28/25 04:54 Vital Signs Vital Signs - 24 hr 06/27/25 23:02 06/28/25 00:58 06/28/25 01:01 Temperature 97.4 F L Pulse Rate 119 H 104 H 106 H Respiratory Rate 24 H 17 20 Blood Pressure 128/75 108/73 112/80 Pulse Oximetry 100 100 100 Oxygen Delivery Room Air 06/28/25 02:05 06/28/25 03:11 06/28/25 03:31 Temperature Pulse Rate 90 103 H 97 Respiratory Rate 12 16 15 Blood Pressure 123/79 112/80 114/71 Pulse Oximetry 100 100 100 Oxygen Delivery 06/28/25 04:28 06/28/25 04:30 06/28/25 04:34 Temperature 98.5 F Pulse Rate 94 95 Respiratory Rate 16 Blood Pressure 102/59 L Pulse Oximetry 100 Oxygen Delivery Room Air 06/28/25 08:00 Temperature 98.4 F Pulse Rate 99 Respiratory Rate 16 Blood Pressure 98/67 L Pulse Oximetry 100 Oxygen Delivery Exam Const: General: comfortable and no acute distress Neck: Neck: supple and no JVD Resp: Effort & Inspection: normal respiratory effort Cardio: Rate: regular rate GI: Inspection: non-distended GI Palp: Yes Soft to palpation, Yes Tenderness to palpation present (GI) (RLQ) and Yes Guarding due to palpation present (GI) Auscultation: normal bowel sounds Skin: General skin exam: normal color and no rashes or lesions noted Neuro: General: gait normal Speech: normal speech Extrem: General: normal to inspection Psych: Mental Status: mental status grossly normal Results Labs Labs: Short CBC 06/27/25 Range/Units 23:33 WBC 16.5 H (4.5-10.0) K/mm3 Hgb 13.9 (12.0-15.0) g/dL Hct 39.3 (37.0-47.0) % Plt Count 300 (150-375) k/mm3 BMP 06/27/25 23:33 Sodium 136 L Potassium 3.6 Chloride 103 Carbon Dioxide 22 BUN 8 Creatinine 0.47 L Glucose 115 H Calcium 9.9 Liver Function 06/27/25 Range/Units 23:33 Total Bilirubin 0.5 (0.2-1.3) mg/dL AST 32 (14-36) U/L ALT 16 (6-35) U/L Alkaline Phosphatase 75 (38-126) U/L Albumin 4.5 (3.5-5.1) g/dL Urine 06/27/25 Range/Units 23:33 Urine Color Yellow (Yellow) Urine Appearance Turbid H (Clear) Urine pH 8.5 (5.0-9.0) Ur Specific [place] 1.018 (1.001-1.035) Urine Protein Negative (Negative) mg/dL Urine Glucose (UA) Negative (Negative) mg/dL Assessment and Plan Assessment and plan (1) Acute appendicitis: Code(s): K35.80 - Unspecified acute appendicitis Status: Acute Assessment and Plan: Patient presented to the hospital around 2 am this morning with RLQ pain that had started earlier in the evening. She then developed associated nausea and vomiting before presenting to the ED. Upon arrival, labs showed a WBC count of 16,500. CT demonstrated early appendicitis. I discussed risks, benefits, alternatives, and recovery of laparoscopic appendectomy in depth. Patient initially apprehensive, but after careful consideration she wishes to proceed with surgery. Keep patient NPO and continue IV antibiotics. She is scheduled for 2 pm in the OR. (2) First trimester : Code(s): Z34.91 - Encounter for supervision of normal , unspecified, first trimester Status: Acute Assessment and Plan: 10 weeks . Patient follows with Dr. Pushpa Henson. Patient should continue to follow up with him as scheduled. Plan Discussed patient's case and plan of care with Dr. Pittman.
[2025-06-28] MEDS: MORPHINE SULFATE (*CRX) 4 MG/ML INJ 2 MG IV PUSH ×3 (11:12→19:58)
[2025-06-28] MEDS: SODIUM CHLORIDE 0.9% IV 1,000 ML 125 ML IV CONT (11:46)
--- NOTE | 2025-06-28 12:58 | P.PNAN_ITS ---
Anes - Initial Pre Proc Eval Procedure: Operation Date: 06/28/25 14:00 Proposed Procedures p Laparoscopic Appendectomy, Possible Open - Daryn Pittman MD Date/Time: 06/28/25 12:58 Surgeon: Daryn Pittman MD Pre Op Diagnosis: Acute appendicitis Patient Data Age: 24 Gender: F Height: 1.57 m Weight: 60.6 kg Last Vital Signs Temp 36.7 C 06/28/25 12:00 Pulse 105 H 06/28/25 12:00 Resp 18 06/28/25 12:00 BP 106/64 06/28/25 12:00 Pulse Ox 99 06/28/25 12:00 O2 Del Method Room Air 06/28/25 08:00 Allergies Allergy/AdvReac Type Severity Reaction Status Date / Time sumatriptan AdvReac Unknown Dizziness Verified 06/28/25 04:54 Home Medications ?Medication ?Instructions ?Recorded ?Confirmed ?Type doxylamine succinate 25 mg tablet 25 mg PO HS insomnia 09/26/24 06/28/25 History ondansetron HCl 4 mg tablet 8 mg PO Q6H PRN nausea and vomiting 09/26/24 06/28/25 History aripiprazole 2 mg tablet (Abilify) 2 mg PO HS 06/28/25 06/28/25 History duloxetine 20 mg capsule,delayed 40 mg PO HS 06/28/25 06/28/25 History release (Cymbalta) omega-3 fatty acids 500 mg PO DAILY 06/28/25 History progesterone micronized 200 mg 200 mg PO QPM 06/28/25 06/28/25 History capsule Laboratory Tests 06/27/25 23:33 WBC 16.5 H K/mm3 (4.5-10.0) RBC 4.52 M/mm3 (4.2-5.4) Hgb 13.9 g/dL (12.0-15.0) Hct 39.3 % (37.0-47.0) MCV 86.9 fl (80-100) MCH 30.8 pg (26-34) MCHC 35.4 g/dl (32-36) RDW 12.2 % (11.5-14.5) Plt Count 300 k/mm3 (150-375) MPV 10.2 fl (7.4-10.4) Immature Gran % (Auto) 0.7 H % (0-0.5) Neut % (Auto) 79.2 H % (45.5-73.1) Lymph % (Auto) 14.8 L % (18.3-44.2) [place] % (Auto) 4.7 % (2.6-8.5) Eos % (Auto) 0.4 % (0-4.4) Baso % (Auto) 0.2 % (0.2-1.2) Lymph # (Auto) 2.43 K/mm3 (0.9-3.2) [place] # (Auto) 0.8 H K/mm3 (0.1-0.6) Eos # (Auto) 0.1 K/mm3 (0-0.3) Baso # (Auto) 0.0 K/mm3 (0.0-0.1) Abs Immat Gran (auto) 0.11 H K/mm3 (0.00-0.031) Absolute Neuts (auto) 13.0 H K/mm3 (1.3-6.7) Absolute Nucleated RBC 0.000 K/mm3 (0.0-0.012) Nucleated RBC % 0.0 % (0.0-0.2) Sodium 136 L mmol/L (137-145) Potassium 3.6 mmol/L (3.4-5.0) Chloride 103 mmol/L (98-107) Carbon Dioxide 22 mmol/L (22-30) Anion Gap 11 mmol/L (4-12) BUN 8 mg/dL (7-17) Creatinine 0.47 L mg/dL (0.7-1.0) Estim Creat Clear Calc 122 ml/min Estimated GFR > 60 (59 - ) Glucose 115 H mg/dL (65-110) Calcium 9.9 mg/dL (8.4-10.2) Total Bilirubin 0.5 mg/dL (0.2-1.3) AST 32 U/L (14-36) ALT 16 U/L (6-35) Alkaline Phosphatase 75 U/L (38-126) Total Protein 7.8 g/dL (6.3-8.2) Albumin 4.5 g/dL (3.5-5.1) Lipase 66 U/L (23-300) Urine Color Yellow (Yellow) Urine Appearance Turbid H (Clear) Urine pH 8.5 (5.0-9.0) Ur Specific [place] 1.018 (1.001-1.035) Urine Protein Negative mg/dL (Negative) Urine Glucose (UA) Negative mg/dL (Negative) Urine Ketones 1+ H mg/dL (Negative) Ur Blood (Man) Negative (Negative) Urine Nitrate Negative (Negative) Urine Bilirubin Negative (Negative) Urine Urobilinogen 0.2 mg/dL (<2.0) Leukocyte Esterase Rfl 1+ H JAYDA/UL (Negative) Urine RBC 0-2 /hpf (0-2) Urine WBC 6-10 H /hpf (0-3) Ur Squamous Epith Cells Few /hpf (Few) Urine Bacteria Trace /hpf Urine Casts 3-5 Patient hx anesthesia problems: none Family hx anesthesia problems: none Results Review: All pre-operative results and documents have been reviewed as part of the pre- operative evaluation. [facility] Surgical History Surgical History (Updated 09/27/24 @ 06:49 by Buck Gallardo MD) History of ankle surgery left tendon lengthening at medial ankle Family History Family History (Updated 06/28/25 @ 05:04 by Andreia Vera RN) Grandparent Breast cancer Social History Social History Smoking status: Former smoker Tobacco type: e-cigarettes/vaping Smokeless tobacco user: other Alcohol intake: never Substance use: never Substance use type: marijuana Lack of Transportation: No Lack of Food: Never True Current Housing: I Have Housing Concerned About Future Housing: No Difficulty Paying Gas/Electric Bills: No Difficulty Paying for Meds: No Currently Unemployed: No Education: Bachelor's Degree Difficulty w/ Childcare or Family Care: No Living arrangements: alone Spiritual care concerns: Yes Anes - Eval Final PreProcedure Day of Procedure 06/28/25 12:58 Patient weight: obese Heart: regular rate and rhythm Lungs: clear to auscultation Airway: Mallampati scale class II Neurological: alert and oriented Last oral intake: >/= 8 hours ASA classification: III Emergent: yes Anesthetic plan: proceed Anesthesia type and monitoring: general ETT and standard monitoring Results Review: All pre-operative results and documents have been reviewed as part of the pre- operative evaluation. Informed Consent: The patient's anesthetic plan and its attendant risks and benefits were discussed with the patient/family/POA. Questions were solicited and answers provided to the satisfaction of the patient/family/POA.
[2025-06-28] MEDS: LACTATED RINGERS 1,000 ML 30 ML IV CONT ×2 (13:24→15:13)
--- NOTE | 2025-06-28 13:30 | WPDHPUPDATE1 ---
History and Physical Update Update Date/Time: 06/28/25 13:30 History and Physical has been reviewed, including an updated exam of the patient. There are NO changes in the patient's condition. Risks, benefits, and alternatives have been discussed and questions answered. Patient agrees to proceed with procedure.
--- NOTE | 2025-06-28 14:17 | S_PTH ---
PATIENT: Celestina Alvarez LOC: [id number] U#:[id number] AGE/SX: 24/F ROOM: 245 RE06/28/[address]: Daryn Pittman MD : 2000 BED: 01 DIS: 06/29/2025 SPEC #: [id number] RECD: 06/29/25 09:09 STATUS: MALU REQ #: [id number] FREDDIE: 06/28/25 14:[address]: Daryn Pittman DEPT: [facility] Surgical RECD BY: Ines Melendez ENTERED: 06/29/25 09:09 SP TYPE: Surgical OTHR DR: Jeannie Mccord, MANAGER FILE Tissues: A - Appendix Procedures: Hematoxylin and Eosin Stain Gross and Microscopic Level 3
[2025-06-28] MEDS: fentaNYL CITRATE INJ (*CRX) 100 MCG/2 ML VIAL 25 MCG IV PUSH ×8 (14:58→15:30)
--- NOTE | 2025-06-28 15:01 | P.OP_ITS ---
Procedure Note - Detailed Date of Procedure 06/28/25 Pre-op Diagnosis Acute appendicitis, 10 week intrauterine Post-op Diagnosis Same Procedure Performed Laparoscopic appendectomy Surgeon Daryn Pittman MD [employer] Maintainer Kianna CARRASQUILLO Anesthesia General Indications Patient is a 24-year-old female who is 10 weeks viable intrauterine followed by Dr. Pushpa Henson. 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 Evaluation in the emergency room showed an elevated white blood count 75381. No fever. Patient had localized tenderness in the right lower quadrant. A CT scan abdomen pelvis without contrast was performed showing a appendix which was dilated to 9 to 10 mm with minimal maya appendiceal inflammation. It is felt she has early acute appendicitis and she is being brought to the operating now for an urgent laparoscopic appendectomy. Prior to surgery the pros and cons of non operative management versus laparoscopic appendectomy was discussed in detail with the patient and her spouse by both myself and the anesthesiologist. After discussion she elected to proceed with the surgical procedure. Findings The appendix was dilated and slightly edematous with slight erythema throughout its distal 1/2. This was consistent with an uncomplicated early acute appendicitis. The base of the appendix appeared to be normal. There is no abscess or purulent fluid in the pelvis. The uterus appeared to be normal and appropriate for a 10 week intrauterine gestation. Description of Procedure After informed consent was obtained patient brought to the operating room she was placed supine position and general endotracheal anesthesia was administered. The abdomen was then prepped and draped usual sterile fashion. A time-out was then performed correctly identifying the patient as well as procedure to be performed. She was already on scheduled IV antibiotics. I then entered the abdomen left upper quadrant utilizing a 5mm Optiview port. Once inside the abdomen insufflated to adequate pneumoperitoneum of 15mmHg of CO2. The patient was then placed in the head-down Trendelenburg position along the omentum and small bowel follow-up of the pelvis. I then placed a 5mm super pubic trocar port and a 12mm left lower quadrant trocar port all under direct visualization. With laparoscopic instruments I was then able to reflect the omentum up out of the lower portions of the pelvis. The appendix was easily identified in the right lower quadrant the abdomen just medial to the cecum. The appendix was mildly dilated and had mild erythema for the distal 1/2 of the appendix. There is no abscess or purulent fluid in the pelvis. She appeared to have a early acute appendicitis. With laparoscopic instruments I then elevated the appendix and expose the base. A [place] dissector was then used to make a defect through the mesoappendix just at the base. A 45mm echelon powered Endo-PERNELL stapler was then used to divide the mesoappendix with a vascular white load. A blue bowel load to the stapler was then used to divide the appendix flush with the cecum. The appendix was then placed into an Endo-Catch bag and brought through the left lower quadrant trocar port site. It was sent to pathology for examination. I then inspected both staple lines there were hemostatic. I then proceeded to close the 12mm left lower quadrant trocar port fascial defect utilizing a 0 Vicryl suture placed with a Kristian cone transfascially. All troca r ports were then removed under direct visualization all port sites were hemostatic. The abdomen was then allowed to decompress. 20cc of 0.5% Marcaine without any epinephrine was then injected around all 3 port sites for postoperative pain relief. The port sites were then closed at skin level utilizing a running subcuticular 4 Monocryl suture. The incisions were then cleaned the skin glue was applied. The patient tolerated the procedure well no complications. All sponges, needles, and instrument counts were correct at the end procedure. EBL was _10__cc. The patient was awakened and taken to recovery in stable and satisfactory condition. Implants None Estimated Blood Loss 10 Drains No Packing No Pathology Yes (Appendix to pathology) Complications No immediate complications Condition Stable Disposition PACU [facility] Billing Surgery - Charge Forward: Surgery Billing
--- NOTE | 2025-06-28 16:06 | PC.NURSE ---
Pt. was brought back up to the floor from the PACU by ALAN Colon.
[2025-06-28] MEDS: HYDROcodone/acetaminophen (*CRX) 5-325 MG TABLET 1 TAB PO ×2 (17:13→22:45)
[2025-06-29] VITALS: PULSE 100
[2025-06-29 00:59] VITALS: BP 119/76; PULSE 91; RESP 16; TEMP 36.9; O2SAT 100
[2025-06-29] MEDS: MORPHINE SULFATE (*CRX) 4 MG/ML INJ 2 MG IV PUSH (00:59)
[2025-06-29 04:00] VITALS: PULSE 89
[2025-06-29] MEDS: HYDROcodone/acetaminophen (*CRX) 5-325 MG TABLET 1 TAB PO ×2 (05:00→09:15)
[2025-06-29] MEDS: ONDANSETRON INJ 4 MG/2 ML VIAL IV PUSH (05:06)
[2025-06-29 05:38] LABS: Hematocrit 36.7 % (37.0-47.0); Hemoglobin 12.5 g/dL (12.0-15.0); Mean Corpuscular HGB Conc 34.1 g/dl (32-36); Mean Corpuscular Hemoglobin 30.5 pg (26-34); Mean Corpuscular Volume 89.5 fl (80-100); Platelet Count Result 250 k/mm3 (150-375); Red Blood Count 4.10 M/mm3 (4.2-5.4); White Blood Count 8.4 K/mm3 (4.5-10.0)
[2025-06-29 05:57] LABS: Alanine Aminotransferase 14 U/L (6-35); Albumin Level 3.8 g/dL (3.5-5.1); Alkaline Phosphatase 54 U/L (38-126); Anion Gap 6 mmol/L (4-12); Aspartate Amino Transferase 24 U/L (14-36); Bilirubin,Total 0.5 mg/dL (0.2-1.3); Blood Urea Nitrogen 3 mg/dL (7-17); Calcium 9.4 mg/dL (8.4-10.2); Carbon Dioxide 25 mmol/L (22-30); Chloride 105 mmol/L (98-107); Estimated CRCL calculation 132 ml/min; Estimated Glomerular Filt Rate > 60; Glucose 96 mg/dL (65-110); Potassium 3.8 mmol/L (3.4-5.0); Sodium 136 mmol/L (137-145); Total Protein 6.7 g/dL (6.3-8.2)
[2025-06-29 06:09] VITALS: BP 110/66; PULSE 100; RESP 16; TEMP 36.4; O2SAT 97
[2025-06-29] MEDS: SODIUM CHLORIDE 0.9% IV 1,000 ML 125 ML IV CONT (06:14)
[2025-06-29 08:00] VITALS: BP 104/67; PULSE 102; PULSE 98; RESP 16; TEMP 36.6; O2SAT 99
[2025-06-29] MEDS: OMEGA 3 POLYUNSAT FATTY ACIDS 1 GM CAP PO (08:15)
[2025-06-29] MEDS: ACETAMINOPHEN 500 MG TABLET 1000 MG PO (10:52)
--- NOTE | 2025-07-02 15:05 | P.DS_ITS ---
DS: Admitting Diagnosis Discharge Date 06/29/25 Admitting Diagnosis acute appendicitis DS: Discharge Diagnosis Discharge Diagnosis (1) Acute appendicitis: Code(s): K35.80 - Unspecified acute appendicitis Status: Acute (2) First trimester : Code(s): Z34.91 - Encounter for supervision of normal , unspecified, first trimester Status: Acute DS: Summary Hospital Course Reason for hospitalization: Patient presented to the hospital around 230 in the morning on 06/28/2025 with right lower quadrant pain that started earlier in the evening. She had ass ociated nausea and vomiting. Upon arrival to the ED, white blood cell count was elevated to 16.5. CT suspicious for early acute appendicitis. Patient started on IV antibiotics and general surgery team consulted. Patient admitted for surgical management. Hospital Course: Patient underwent laparoscopic appendectomy on 06/28/25. Patient tolerated the procedure without any complications. She was awakened and taken to recovery in stable condition. No acute events overnight. WBC normalized to 8.4 the following morning. Tolerating diet without nausea or vomiting. Mild abdominal pain. Voiding appropriately. Ambulating without assitance. Afebrile. Surgically stable for discharge. Status at Discharge Functional status at discharge: independent ambulation Time Spent with Patient Time attestation: Total time spent providing and/or coordinating discharge services: Time spent: Less than 30 minutes Exam Const: General: comfortable and no acute distress Eyes: General: appearance normal, both eyes and all related structures Neck: Neck: supple Resp: Effort & Inspection: normal respiratory effort Cardio: Rate: regular rate GI: Inspection: non-distended GI Palp: Yes Soft to palpation and Yes Tenderness to palpation present (GI) (mild tenderness around incisions) Auscultation: normal bowel sounds Other: incisions clean and dry with no signs of infection Skin: General skin exam: normal color Neuro: Sensory Exam: normal sensation Extrem: General: normal to inspection Psych: Mental Status: mental status grossly normal DS: Data Data Completed and Pending Completed studies during hospitalization: Pending at discharge 06/28/25 14:17 Surgical [PTH] Routine Procedures/Treatments: Procedures Operation Date: 06/28/25 14:00 Actual Procedure Side Surgeon p Laparoscopic Appendectomy Daryn Underwood MD Imaging Radiologist's impression: ITS Impressions Abdomen/Pelvis CT 06/28/25 06:36 IMPRESSION: 1. Worrisome for early acute appendicitis. Discharge Plan Discharge Attending physician on discharge: Daryn Underwood Consulting providers: Roseann Hair; Yong Kee; Estiven Peralta Discharging Clinician: Roseann Hair Patient Disposition: Home Activity: may shower Diet: regular Wound Care Instructions: follow printed instructions Discharge Instructions: DISCHARGE INSTRUCTION SHEET FOR HERNIA, GALLBLADDER AND APPENDIX SURGERIES DR. UNDERWOOD PATIENT TO TAKE HOME 1. May shower in 24 hours, no soaking in bath x 2weeks. 2. Call office for: * Wound increasingly painful or bleeding * Vomiting * Fever of greater than 101 degrees 3. If no bowel movement for three days, take 1 oz. (30 ml) Milk of Magnesia or MiraLax 17g 1 to 2 times daily. 4. No heavy lifting > 10-15 pounds x 2 weeks for laparoscopic cholecystectomy or appendectomy. 5. No driving for 3 days or while taking narcotic pain medications. 6. Ice to surgical site for 48 hours (30 min on, then 30 min off). 7. Up walking 10-30 minutes three times per day. 8. Resume previous home medications. 9. Call the general surgery office at to schedule a follow up appointment in 2 weeks. 10. Oral pain medications prescription to be sent to pharmacy. Take Tylenol 500mg every 6 hours as needed. 11. NUTRITION: Start out by drinking fluids and increase your diet as tolerated. If you experience nausea, try dry toast, crackers, and 7-UP. If nausea or vomiting persists, contact your surgeon?s office. Revised November 2018 Patient Instructions: Antibiotic Form, Electronic [employer] and Your Health (GEN) Patient Language: Citizen Of [place] Stand Alone Forms: General Discharge Information, Work/School Release IP Follow-up/Referrals: Daryn Underwood MD [Physician, General Surgery] - Call for Appointment Referral Note: 2 weeks Discharge Medications: Continued duloxetine [Cymbalta] 20 mg capsule,delayed release(DR/EC) 40 mg PO HS aripiprazole [Abilify] 2 mg tablet 2 mg PO HS progesterone micronized 200 mg capsule 200 mg PO QPM omega-3 fatty acids Capsule 500 mg PO DAILY ondansetron HCl 4 mg tablet 8 mg PO Q6H PRN (Reason: nausea and vomiting) doxylamine succinate 25 mg tablet 25 mg PO HS No Action hydrocodone-acetaminophen 5-325 mg tablet 1 tablet PO Q4H PRN (Reason: pain) Qty: 10 0RF Date of admission: 06/28/25 02:42 Primary Care Provider: Suri,Jeannie Jane Admitting Provider: Daryn Underwood Attending physician on admission: Daryn Underwood Condition: Improved
== END 2025-06-29 11:20 | disposition home or self-care (01) ==
LOC: ANHED 06-28 00:07 → ANH3MEDSUR 06-28 03:37 → ANH2MED 06-28 04:29
PROVIDERS: Student in an Organized Health Care Education/Training Program; Admitting Provider Surgery; PCP Nurse Practitioner; Visit Provider Surgery
PROC: 0DTJ4ZZ Resection of Appendix, Percutaneous Endoscopic Approach (ICD-10-PCS; CPT 44970; principal; 2025-06-28 14:00)
DX: O99.611 Diseases of the digestive system complicating pregnancy, first trimester (principal); Z3A.10 10 weeks gestation of pregnancy; K35.80 Unspecified acute appendicitis; Z87.891 Personal history of nicotine dependence
CPT/HCPCS: 44970; 36415; 74176; 80053; 81001; 83690; 85025; 85027; 87086; 88304; 96361; 96365; 96375; 96376; 99285; A9270; G0378; J2270; J2371; J2405; J2543; J2704; J3010; J7030; J7120